=== PATIENT | female | born 1970 | race Caucasian/White ===

== ENCOUNTER 2017-10-22 08:08 | Emergency (ER) ==
[2017-10-22 08:13] VITALS: BP 133/85; TEMP 98; BMI 23.8
[2017-10-22] MEDS ORDERED: XOPENEX 1.25 MG NEB STA (08:19)
[2017-10-22] MEDS ORDERED: SOLU-MEDROL 125 MG IVP STA (08:19)
[2017-10-22] MEDS ORDERED: DUONEB NEB STA (08:19)
--- NOTE | 2017-10-22 09:12 | ED.PDOC ---
General ED Provider: Dr. JENA DYER-ER Chief Complaint: Respiratory Complaint Stated Complaint: my nose was running and then i started coughing and wheezing Time Seen by Physician: 08:10 Mode of Arrival: Walk-In Information Source: Patient Exam Limitations: No limitations Nursing and Triage Documentation Reviewed and Agree: Yes Reviewed sepsis parameters & appropriate labs ordered?: Yes System Inflammatory Response Syndrome: Not Applicable Sepsis Protocol: For patient's 13 years and over: Temp is 96.8 and below OR 101 and greater Pulse >90 BPM Resp >20/minute Acutely Altered Mental Status Are patient's symptoms suggestive of a new infection, such as: -Pneumonia -Skin, Soft Tissue -Endocarditis -UTI -Bone, Joint Infection -Implantable Device -Acute Abdominal Infection -Wound Infection -Meningitis -Blood Stream Catheter Infection -Unknown Respiratory Complaint Exam - Respiratory Complaint/Exam Onset/Duration: 3 days Symptoms Are: Still present Timing: Intermittent Initial Severity: Mild Current Severity: Mild Location: Nose, Chest Character: Reports: Non-productive cough, Bronchospastic cough Aggravating: Reports: URI Alleviating: Reports: Bronchodilators Associated Signs and Symptoms: Reports: Dyspnea, Wheezing, URI, Nasal congestion. Denies: Rapid breathing, Fever, Chills, Chest pain, Pleuritic chest pain, Hemoptysis, Dizziness, Calf pain, Calf swelling, Edema History of Healthcare-Acquired Pneumonia: No Pulmonary Embolism Risk Factors: Smoking Cardiac Risk Factors: Reports: Smoking Pseudomonas Risk Factors: Reports: Chronic Lung Disease Status Asthmaticus Risk Factors: Reports: None, Smoke exposure Home Oxygen Use: No Recent Stress Test: No Recent Echo/LV Function: No Current Antibiotic Use: No Current Asthma Medication Use: Yes Respiratory Distress: Mild Inadequate Respiratory Effort: No Dysphagia Present: No Stridor Present: No JVD Present: No Accessory Muscle Use: No Retractions: Not Present Diminished Breath Sounds: No Prolonged Respiration: Expiratory phase Sinus Tenderness: None Grunting Respirations: No Kussmaul Respirations: No Differential Diagnoses: Asthma, Pneumonia, Bronchitis, URI Non-Traumatic Chest Pain Syncope: EKG Performed Review of Systems - Review Of Systems Constitutional: Reports: No symptoms Eyes: Reports: No symptoms Ears, Nose, Mouth, Throat: Reports: No symptoms Respiratory: Reports: Cough, Wheezing Cardiac: Reports: No symptoms GI: Reports: No symptoms : Reports: No symptoms Musculoskeletal: Reports: No symptoms Skin: Reports: No symptoms Neurological: Reports: No symptoms Endocrine: Reports: No symptoms Hematologic/Lymphatic: Reports: No symptoms All Other Systems: Reviewed and Negative Past Medical History - Past Medical History Previously Healthy: No Endocrine: Reports: Unknown Cardiovascular: Reports: Unknown Respiratory: Reports: COPD, Asthma Hematological: Reports: Unknown Gastrointestinal: Reports: Unknown Genitourinary: Reports: Unknown Neuro/Psych: Reports: Unknown Musculoskeletal: Reports: Unknown Cancer: Reports: Unknown Last Menstrual Period: 1 YEAR AGO - Surgical History General Surgical History: Reports: Unknown - Family History Family History: Reports: Unknown - Social History Smoking Status: Current every day smoker Hx Substance Use: No Alcohol Screening: None Physical Exam - Physical Exam Appearance: Well-appearing, No pain distress, Well-nourished Eyes: ZACK, EOMI, Conjunctiva clear ENT: Rhinorrhea Neck: Supple Respiratory: Airway patent, Wheezes Cardiovascular: RRR GI/: Soft Musculoskeletal: Normal strength, ROM intact, No edema, No calf tenderness Skin: Warm Neurological: Sensation intact Psychiatric: Affect appropriate, Mood appropriate Interpretation - Radiology Interpretation Radiology Interpretation By: ED Physician Radiology Results: Negative Exam Interpreted: Portable CXR - EKG Interpretation Time of EKG #1: 09:13 Rate: Normal Rhythm: Sinus Ectopy: None Brohman: NL ST Segment: Other Interpretation: nsr with acute changes Re-Evaluation - Re-Evaluation Time of Re-Evaluation: 09:24 Status: Improved (no wheezing--no resp distress--no retractions--much improved) Vital Signs Stable: Yes Pain Level: 0 Appearance: NAD Lungs: Clear Skin: Warm and Dry Neuro: Alert and Oriented X3 CV: RRR Critical Care Note - Critical Care Note Total Time (mins): 0 Course - Course Hematology/Chemistry: 10/22/17 08:37 10/22/17 08:37 Orders, Labs, Meds: Lab Review 10/22/17 10/22/17 10/22/17 08:17 08:37 08:37 WBC 11.41 H RBC 5.29 Hgb 16.7 H Hct 49.3 H MCV 93.2 MCH 31.6 H MCHC 33.9 RDW Coeff of Jj 13.9 Plt Count 253 Immature Gran % (Auto) 0.3 Neut % (Auto) 75.7 Lymph % (Auto) 12.3 Gordon % (Auto) 9.8 Eos % (Auto) 1.3 Baso % (Auto) 0.6 Immature Gran # (Auto) 0.0 Neut # (Auto) 8.6 H Lymph # (Auto) 1.4 Gordon # (Auto) 1.1 Eos # (Auto) 0.2 Baso # (Auto) 0.1 D-Dimer (Manual) Puncture Site R radial O2 Saturation 94.0 L ABG pH 7.425 ABG pCO2 32.6 L ABG pO2 70.0 L ABG HCO3 21.4 L ABG Total CO2 22 ABG Base Excess -3 L Huy Test + FiO2 % 21.0 Sodium 142 Potassium 4.0 Chloride 109 H Carbon Dioxide 22 Anion Gap 15.0 BUN 5 L Creatinine 0.75 Estimated GFR (MDRD) 82.00 BUN/Creatinine Ratio 6.66 Glucose 95 Lactic Acid Calcium 9.9 Total Bilirubin 0.5 AST 18 ALT 26 Alkaline Phosphatase 86 Total Creatine Kinase 29 Troponin I < 0.0100 B-Natriuretic Peptide Total Protein 6.7 Albumin 3.8 Globulin 2.9 Albumin/Globulin Ratio 1.31 Procalcitonin 10/22/17 10/22/17 10/22/17 08:37 08:37 08:37 WBC RBC Hgb Hct MCV MCH MCHC RDW Coeff of Jj Plt Count Immature Gran % (Auto) Neut % (Auto) Lymph % (Auto) Gordon % (Auto) Eos % (Auto) Baso % (Auto) Immature Gran # (Auto) Neut # (Auto) Lymph # (Auto) Gordon # (Auto) Eos # (Auto) Baso # (Auto) D-Dimer (Manual) 213.01 Puncture Site O2 Saturation ABG pH ABG pCO2 ABG pO2 ABG HCO3 ABG Total CO2 ABG Base Excess Huy Test FiO2 % Sodium Potassium Chloride Carbon Dioxide Anion Gap BUN Creatinine Estimated GFR (MDRD) BUN/Creatinine Ratio Glucose Lactic Acid 10.8 Calcium Total Bilirubin AST ALT Alkaline Phosphatase Total Creatine Kinase Troponin I B-Natriuretic Peptide < 10 Total Protein Albumin Globulin Albumin/Globulin Ratio Procalcitonin 10/22/17 08:37 WBC RBC Hgb Hct MCV MCH MCHC RDW Coeff of Jj Plt Count Immature Gran % (Auto) Neut % (Auto) Lymph % (Auto) Gordon % (Auto) Eos % (Auto) Baso % (Auto) Immature Gran # (Auto) Neut # (Auto) Lymph # (Auto) Gordon # (Auto) Eos # (Auto) Baso # (Auto) D-Dimer (Manual) Puncture Site O2 Saturation ABG pH ABG pCO2 ABG pO2 ABG HCO3 ABG Total CO2 ABG Base Excess Huy Test FiO2 % Sodium Potassium Chloride Carbon Dioxide Anion Gap BUN Creatinine Estimated GFR (MDRD) BUN/Creatinine Ratio Glucose Lactic Acid Calcium Total Bilirubin AST ALT Alkaline Phosphatase Total Creatine Kinase Troponin I B-Natriuretic Peptide Total Protein Albumin Globulin Albumin/Globulin Ratio Procalcitonin < 0.05 Orders Category Date Time Status ABG DRAW REQUEST Stat CARDIO 10/22/17 08:17 Completed EKG-(ED ONLY) Stat CARDIO 10/22/17 08:17 Completed NEBULIZER TREATMENT Stat CARDIO 10/22/17 08:19 Completed IV [ED IV/MEDIPORT/POWERPORT] .ONCE EMERGENCY 10/22/17 08:18 Active ABG Stat LAB 10/22/17 08:17 Completed B-TYPE NATRIURETIC PEPTIDE Stat LAB 10/22/17 08:37 Completed BLOOD CULTURE (ED ONLY) Stat LAB 10/22/17 08:37 Received CBC W/ AUTO DIFF Stat LAB 10/22/17 08:37 Completed COMPREHENSIVE METABOLIC PANEL Stat LAB 10/22/17 08:37 Completed CREATINE KINASE Stat LAB 10/22/17 08:37 Completed D-DIMER Stat LAB 10/22/17 08:37 Completed LACTIC ACID Stat LAB 10/22/17 08:37 Completed PROCALCITONIN Stat LAB 10/22/17 08:37 Completed TROPONIN I Stat LAB 10/22/17 08:37 Completed 0.9 % Sodium Chloride [Saline Flush] MEDS 10/22/17 08:18 Active 1 syr IVF PRN PRN Ipratropium/Albuterol Neb [Duoneb] MEDS 10/22/17 08:19 Discontinued 1 vial NEB ONCE STA Levalbuterol HCl [Xopenex 1.25 mg] MEDS 10/22/17 08:19 Discontinued 1 vial NEB ONCE STA Methylprednisolone Sod Succ/Pf [Solu-Medrol 125 mg] MEDS 10/22/17 08:19 Discontinued 125 mg IVP ONCE STA CXR [CHEST, 1V AP ONLY] Stat RADS 10/22/17 08:18 Ordered Medications Generic Name Dose Route Start Last Admin Trade Name Freq PRN Reason Stop Dose Admin Sodium Chloride 1 syr 10/22/17 08:18 10/22/17 08:27 Saline Flush IVF 1 syr PRN PRN Administration To flush IV Discontinued Medications Generic Name Dose Route Start Last Admin Trade Name Freq PRN Reason Stop Dose Admin Albuterol/Ipratropium 1 vial 10/22/17 08:19 10/22/17 08:30 Duoneb NEB 10/22/17 08:20 1 vial ONCE STA Administration Levalbuterol HCl 1 vial 10/22/17 08:19 10/22/17 08:46 Xopenex 1.25 Mg NEB 10/22/17 08:20 1 vial ONCE STA Administration Methylprednisolone Sodium Succinate 125 mg 10/22/17 08:19 10/22/17 08:26 Solu-Medrol 125 Mg IVP 10/22/17 08:20 125 mg ONCE STA Administration Vital Signs: Temp Pulse Resp BP Pulse Ox 10/22/17 08:09 98.0 F 110 H 24 133/85 94 L Departure - Departure Time of Disposition: 09:25 Disposition: HOME SELF-CARE Discharge Problem: Abnormal EKG, Tobacco use Asthma Qualifiers: Asthma severity: moderate Asthma persistence: unspecified Asthma complication type: with acute exacerbation Qualified Code(s): J45.901 - Unspecified asthma with (acute) exacerbation Discharge Problem: (Ruled Out): No ST-T wave changes on electrocardiogram Instructions: Asthma (ED) Condition: Good Pt referred to PMD for follow-up: Yes IPMP verified?: No Additional Instructions: refill albuterol inhaler 2 puffs q 4hrs--prednisone 30mg x 2 days then 20mg x 2 days then 10mg x 2 days then 5mg x 2 days---stop smoking---you musst see a provider and get referral to cardiology for abnormal ekg-- Allergies/Adverse Reactions: Allergies Penicillins Adverse Reaction (Verified 10/22/17 08:14) Home Medications: Ambulatory Orders Albuterol Sulfate [Proair Hfa] 2 puff IH PRN PRN 10/22/17 Disposition Discussed With: Patient
--- NOTE | 2017-10-22 09:33 | DI ---
Exam: Single view of the chest. Comparison: None available. Reason for exam: Dyspnea, cough, wheeze. FINDINGS: There is scoliotic change seen throughout the thoracic spine. No pneumothorax, pleural ef fusion, or focal consolidation. The cardiac silhouette is not enlarged. The imaged osseous structur es appear grossly unremarkable without acute fracture. Impression: No acute cardiopulmonary process.
== END 2017-10-22 09:40 | disposition home or self-care (01) ==
LOC: ED 08:08
DX: J45.901 Unspecified asthma with (acute) exacerbation (principal); R94.31 Abnormal electrocardiogram [ECG] [EKG]; R06.2 Wheezing; F17.210 Nicotine dependence, cigarettes, uncomplicated
CPT/HCPCS: 36415; 80053; 82550; 82803; 83605; 83880; 84145; 84484; 85025; 85379; 87040; 93005; 93010; 94640; 96374; 99283

== ENCOUNTER 2017-12-27 06:33 | Outpatient (CLI) ==
--- NOTE | 2017-12-27 09:10 | ECHO2D ---
Date of Exam: 12/27/17 Ordering Physician: DR. RONDA FULLER Room #: OP Reason for Echo: ABNORMAL EKG M-Mode Normal Adult Results LV Dimensions Normal Adult Results AoV Opening excursions >1.6 >1.6 LVEDD-base- 3.5-5.8 4.2 Ao root dimensions 2.0-3.7 3.1 LVESD-base- 3.1-4.6 L. Atrium dimensions 1.9-3.8 3.5 Post. Wall thickness 0.8-1.1 1.0 IV septum (thickness) 0.7-1.2 1.1 Post. Wall excursion 0.72-1.3 NORMAL Septal motion 0.4 Systolic motion R. Ventricular cavity 1.5-2.0 NORMAL LVEF 60% 50% Paradoxical septal wall motion NORMAL 2-D : HYPOKINETIC SEPTUM--NORMAL VALVES--NO EFFUSION, NO THROMBUS, NORMAL LEFT VENTRICLE AND LEFT ATRIAL SIZE M-MODE: MV: MITRAL VALVE PROLAPSE NOTED, LATE SYSTOLIC AV: NORMAL TV: NORMAL PV: CHAMBER SIZE: NORMAL WALL MOTION: HYPOKINETIC SEPTUM PERICARDIUM: NORMAL INTERPRETATION: 1. HYPOKINETIC SEPTUM (LIKELY FROM INCOMPLETE RIGHT BUNDLE BRANCH BLOCK) 2. LEFT VENTRICULAR EJECTION FRACTION 50% 3. NORMAL VALVES WITH 2 "D" ECHO 4. MITRAL VALVE PROLAPSE ONLY BY "M" MODE, LATE SYSTOLIC MTDD
== END 2017-12-27 06:34 | disposition home or self-care (01) ==
LOC: CAR 06:33
PROVIDERS: ATTEND Emergency Medicine
DX: R94.31 Abnormal electrocardiogram [ECG] [EKG] (principal)

== ENCOUNTER 2017-12-28 06:28 | Outpatient (CLI) ==
[2017-12-28] MEDS ORDERED: DOBUTAMINE 250 ML IV ONE (07:33)
[2017-12-28] MEDS ORDERED: ATROPINE SULFATE PFS ONE (07:33)
--- NOTE | 2017-12-28 09:33 | NM ---
Cardiac Stress Test HISTORY: Abnormal EKG. COMPARISON: None of this type. TECHNIQUE: Resting: The patient was injected with he 11.2 millicuries of 99m technetium Sestamibi (Cardiolite) intravenously after which a "resting" SPECT study of the heart was performed. Stress: The patient was stressed pharmacologically with dobutamine and at the appropriate time injec jose m with 30.0 millicuries of 99m technetium Sestamibi (Cardiolite) after which a "stress" SPECT study of the heart was performed. Gated images of the heart were also obtained to assess wall motion and c alculate ejection fraction. For details of the stress protocol employed, reference is made to the se cme report of the performing physician. FINDINGS: The stress perfusion images demonstrate decreased activity in the septum and contiguous po rtions of the anterior wall and inferior wall extending to the left ventricular apex. This improves o n the resting images suggesting ischemia. The resting perfusion images demonstrate no evidence of si gnificant redistribution/ischemia elsewhere. The left ventricular ejection fraction (LVEF) is 62%. IMPRESSION: 1. Left ventricular myocardial perfusion demonstrates evidence of ischemia in the septum and contigu ous portions of the anterior wall and inferior wall. 2. The left ventricular ejection fraction (LVEF) is 62%.
--- NOTE | 2017-12-31 09:51 | DOBSTECHO ---
Date of Test: 12/28/17 Ordering Physician: DR. RONDA FULLER Reason for Examination: ABNORMAL EKG, FAMILY HISTORY OF [place] Current Medications: LISINOPRIL, MOBIC, ALBUTEROL Height: 62" Weight: 130 LBS Target Heart Rate: 145/171 S-T Segment Stage Time HR BPM BP MMHG Rhythm +/- Elevation Depression Comments/ Symptoms Control Sitting 83 118/72 Dobutamine 250mg/D5W 5cmg/KG/mn 10cmg/KG/mn 3" 115 15cmg/KG/mn 2" 136 122/80 20cmg/KG/mn :47 143 138/62 25cmg/KG/mn 30cmg/KG/mn 35cmg/KG/mn 40cmg/KG/mn Time: 3" HR B/P Time: 6" HR B/P Time: 8" HR B/P Recovery 117 122/68 Recovery 92 116/ 62 Recovery 85 Total Time: 5:47 Maximum Heart Rate Reached: 143 BPM 100% OXYGEN SATURATION WITH DOBUTAMINE INFUSION Interpretation: 1. NO EVIDENCE OF ISCHEMIA BY ST-T WAVE 2. NO CHEST PAIN OR DISCOMFORT 3. HYPOKINETIC SEPTUM A REST WITH IMPROVED LEFT VENTRICULAR CONTRACTILITY OF LEFT VENTRICLE WITH DOBUTAMINE INFUSION SESTAMIBI TO FOLLOW MTDD
--- NOTE | 2017-12-31 09:55 | ECHOSTRESS ---
Date of Exam: 12/28/17 Ordering Physician: DR. RONDA FULLER Reason for Echo: ABNORMAL EKG, DOBUTAMINE STRESS --NO ISCHEMIA M-Mode Normal Adult Results LV Dimensions Normal Adult Results AoV Opening excursions >1.6 LVEDD-base- 3.5-5.8 Ao root dimensions 2.0-3.7 LVESD-base- 3.1-4.6 L. Atrium dimensions 1.9-3.8 Post. Wall thickness 0.8-1.1 IV septum (thickness) 0.7-1.2 Post. Wall excursion 0.72-1.3 Septal motion Systolic motion R. Ventricular cavity 1.5-2.0 LVEF 60% Paradoxical septal wall motion 2-D: HYPOKINETIC SEPTUM AT REST AND IMPROVED CONTRACTILITY OF LEFT VENTRICLE WITH DOBUTAMINE INFUSION M-MODE: MV: AV: TV: PV: CHAMBER SIZE: WALL MOTION: HYPOKINETIC SEPTUM AT REST AND IMPROVED CONTRACTILITY OF LEFT VENTRICLE WITH DOBUTAMINE INFUSION PERICARDIUM: INTERPRETATION: 1. HYPOKINETIC SEPTUM AT REST AND IMPROVED CONTRACTILITY OF LEFT VENTRICLE WITH DOBUTAMINE INFUSION SESTAMIBI TO FOLLOW MTDD
== END 2017-12-28 06:29 | disposition home or self-care (01) ==
LOC: CAR 06:28
PROVIDERS: ATTEND Emergency Medicine
DX: R94.31 Abnormal electrocardiogram [ECG] [EKG] (principal); I10 Essential (primary) hypertension

== ENCOUNTER 2018-01-11 12:02 | Outpatient (CLI) | END 2018-01-11 12:03 | disposition home or self-care (01) | LOC: RHC-LAB 12:02 | PROVIDERS: ATTEND Emergency Medicine | DX: I10 Essential (primary) hypertension (principal) | CPT/HCPCS: 36415; 80061; 84443 ==

== ENCOUNTER 2018-01-22 10:28 | Outpatient (CLI) ==
--- NOTE | 2018-01-23 09:23 | MAMMO ---
EXAM: Bilateral digital screening mammogram (2-D and 3-D) History: Baseline screening Findings: MLO and CC views of bilateral breasts demonstrate scattered fibroglandular breast parenchy ma. CAD was reviewed by the radiologist. Tomosynthesis was performed. There are no suspicious micr ocalcifications. 0.9 cm well circumscribed mass at 6 o'clock within the right breast anterior depth. 3.2 cm fairly well circumscribed mass within the upper-outer quadrant of the left breast. Impression: Indeterminate bilateral breast masses. Recommend further evaluation with ultrasound. BIRAD 0
== END 2018-01-22 10:29 | disposition home or self-care (01) ==
LOC: RAD 10:28
PROVIDERS: ATTEND Emergency Medicine
DX: Z12.31 Encounter for screening mammogram for malignant neoplasm of breast (principal)
CPT/HCPCS: 77067

== ENCOUNTER 2018-02-16 07:58 | Emergency (ER) ==
[2018-02-16 08:05] VITALS: BP 135/86; TEMP 96.7; BMI 24.5
[2018-02-16] MEDS ORDERED: DUONEB NEB STA (08:20)
[2018-02-16] MEDS ORDERED: SODIUM CHLORIDE 1,000 ML IV STA (08:20)
--- NOTE | 2018-02-16 08:26 | ED.PDOC ---
General ED Provider: Dr. MONY RODRIGUEZ Chief Complaint: Chest Pain Stated Complaint: Patient is a 47 year old female who has a history of COPD comes to the ER with complaints of chest pain since yesterday. Describes it as Sharp and heavy rates it at 8/10 worse with breathing. Denies any history of CAD. Has had a stress test recently last month. Was told she had a Leaky heart. Rates the pain at 6/10 Time Seen by Physician: 08:23 Mode of Arrival: Walk-In Information Source: Patient Exam Limitations: No limitations Primary Care Provider: PAT ANDERS Nursing and Triage Documentation Reviewed and Agree: Yes Does patient meet sepsis criteria?: Yes If yes, has appropriate treatment been initiated?: Yes System Inflammatory Response Syndrome: Pulse >90 BPM, Resp >20/Minute Sepsis Protocol: For patient's 13 years and over: Temp is 96.8 and below OR 101 and greater Pulse >90 BPM Resp >20/minute Acutely Altered Mental Status Are patient's symptoms suggestive of a new infection, such as: -Pneumonia -Skin, Soft Tissue -Endocarditis -UTI -Bone, Joint Infection -Implantable Device -Acute Abdominal Infection -Wound Infection -Meningitis -Blood Stream Catheter Infection -Unknown Cardiovascular Complaint Exam - Chest Pain Complaint/Exam Onset: Sudden Duration: 1 day Symptoms Are: Still present Timing: Constant Length of Chest Pain Episodes: 1 day Initial Severity: Moderate Current Severity: Severe Location: Reports: Midsternal Pain Radiates: Reports: None Character: Reports: Heaviness, Sharp Aggravating: Reports: Deep breaths Alleviating: Reports: None Associated Signs and Symptoms: Reports: Short of air. Denies: Diaphoresis, Nausea, Vomiting, Fever, Palpitations, Cough, Hemoptysis, Back pain, Abdominal pain, Dizziness, Calf pain, Calf swelling Related Surgical History: Reports: None AMI/ACS Risk Factors: Reports: Family history, Hypertension, Smoking Pulmonary Embolism Risk Factors: Reports: Smoking Prior Care for this Complaint: No Recent Stress Test: Yes (one month ago ) Recent Echo/LV Function: Yes (one month ago EF 65% ) JVD Present: No Subcutaneous Emphysema Present: No Diminshed Breath Sounds: No Reproducible Chest Wall Pain: No Bilateral Pulses Present: No Unequal Pulses Noted: No If Risk Factors for AMI/ACS Consider: EKG, Cardiac Enzymes, Aspirin Documents Reviewed: Medical records, Labs, Imaging, EKG Differential Diagnoses: Acute VT, ACS, Pulmonary Edema, GI Diseasae Review of Systems - Review Of Systems Constitutional: Reports: No symptoms Eyes: Reports: No symptoms Ears, Nose, Mouth, Throat: Reports: No symptoms Respiratory: Reports: Short of air Cardiac: Reports: Chest pain GI: Reports: No symptoms : Reports: No symptoms Musculoskeletal: Reports: No symptoms Skin: Reports: No symptoms Neurological: Reports: No symptoms Endocrine: Reports: No symptoms Hematologic/Lymphatic: Reports: No symptoms All Other Systems: Reviewed and Negative Past Medical History - Past Medical History Previously Healthy: No Endocrine: Reports: None Cardiovascular: Reports: Hypertension Respiratory: Reports: COPD, Asthma Hematological: Reports: None Gastrointestinal: Reports: None Genitourinary: Reports: None Neuro/Psych: Reports: Anxiety, Depression Musculoskeletal: Reports: Back Pain Cancer: Reports: None Last Menstrual Period: na - Surgical History General Surgical History: Reports: None - Family History Family History: Reports: Heart (sister ) - Social History Smoking Status: Current every day smoker (1/2 ppd ) Hx Substance Use: No Alcohol Screening: None - Immunizations Tetanus Shot up to Date: No Physical Exam - Physical Exam Appearance: Ill-appearing Ill-appearing: Mild Pain Distress: Moderate Neck: Supple Respiratory: Breath sounds diminished (on the left ), Rhonchi (Throught ) Cardiovascular: RRR, Pulses normal, No rub, No murmur GI/: Soft, Nontender, No masses, Bowel sounds normal, No Organomegaly Musculoskeletal: Normal strength, ROM intact, No edema, No calf tenderness Skin: Warm, Dry, Normal color Neurological: Sensation intact, Motor intact, Reflexes intact, Cranial nerves intact, Alert, Oriented Psychiatric: Anxious Interpretation - Radiology Interpretation Radiology Interpretation By: Radiologist - EKG Interpretation Time of EKG #1: 08:12 Rate: Tachy (101) Rhythm: Sinus [place]: NL ST Segment: Normal Interpretation: age undetermined Septal infarct Physician Notification - Case Discussed Physician Notified: Dr. URBAN Time of Notification: 09:30 (will accept if D Dimer negative. ) Physician Notified: Dr URBAN Time of Notification: 10:30 (D-Dimer only 556, will not get CT PE but treated with Lovenox. ) Critical Care Note - Critical Care Note Total Time (mins): 40 Comments: Review EKG, ABG, evaluate response to nitroglycerine reviewed recent stress test Stress echo 12/28/2018 hypokinetic septum at rest with improved left ventricular contractility. Cardiolyte stres test 12/28/2017 Left ventricular Myocardial perfusion demonstrates evidence of ischemia in the septal contiguous portions of the anterior and inferior wall Course - Course Hematology/Chemistry: 02/16/18 08:38 02/16/18 08:38 Orders, Labs, Meds: Lab Review 02/16/18 02/16/18 02/16/18 08:20 08:38 08:38 WBC 6.77 RBC 4.74 Hgb 14.3 Hct 43.7 MCV 92.2 MCH 30.2 MCHC 32.7 RDW Coeff of Jj 14.8 Plt Count 278 Immature Gran % (Auto) 0.1 Neut % (Auto) 54.2 Lymph % (Auto) 27.9 [place] % (Auto) 10.3 H Eos % (Auto) 6.6 Baso % (Auto) 0.9 Immature Gran # (Auto) 0.0 Neut # (Auto) 3.7 Lymph # (Auto) 1.9 [place] # (Auto) 0.7 Eos # (Auto) 0.5 Baso # (Auto) 0.1 D-Dimer (Manual) Puncture Site Rr O2 Saturation 96.0 ABG pH 7.408 ABG pCO2 38.0 ABG pO2 78.0 L ABG HCO3 24.0 ABG Total CO2 25 ABG Base Excess -1 Huy Test + FiO2 % 21.0 Sodium 141.1 Potassium 4.01 Chloride 107.8 H Carbon Dioxide 25.4 Anion Gap 11.91 BUN 12.1 Creatinine 0.74 Estimated GFR (MDRD) 83.00 BUN/Creatinine Ratio 16.35 Glucose 84.0 Lactic Acid Calcium 9.91 Total Bilirubin 0.28 AST 29.9 ALT 50.4 H Alkaline Phosphatase 110.2 Total Creatine Kinase 28.9 L Troponin I < 0.012 Total Protein 7.08 Albumin 4.07 Globulin 3.01 Albumin/Globulin Ratio 1.35 Procalcitonin 02/16/18 02/16/18 02/16/18 08:38 08:38 10:00 WBC RBC Hgb Hct MCV MCH MCHC RDW Coeff of Jj Plt Count Immature Gran % (Auto) Neut % (Auto) Lymph % (Auto) [place] % (Auto) Eos % (Auto) Baso % (Auto) Immature Gran # (Auto) Neut # (Auto) Lymph # (Auto) [place] # (Auto) Eos # (Auto) Baso # (Auto) D-Dimer (Manual) 552.65 Puncture Site O2 Saturation ABG pH ABG pCO2 ABG pO2 ABG HCO3 ABG Total CO2 ABG Base Excess Huy Test FiO2 % Sodium Potassium Chloride Carbon Dioxide Anion Gap BUN Creatinine Estimated GFR (MDRD) BUN/Creatinine Ratio Glucose Lactic Acid 1.11 Calcium Total Bilirubin AST ALT Alkaline Phosphatase Total Creatine Kinase Troponin I Total Protein Albumin Globulin Albumin/Globulin Ratio Procalcitonin < 0.05 Orders Category Date Time Status ABG DRAW REQUEST Stat CARDIO 02/16/18 08:20 Completed EKG-(ED ONLY) Stat CARDIO 02/16/18 08:20 Completed NEBULIZER TREATMENT Stat CARDIO 02/16/18 08:22 Completed ED IV/MEDIPORT/POWERPORT .ONCE EMERGENCY 02/16/18 08:20 Active ABG Stat LAB 02/16/18 08:20 Completed BLOOD CULTURE (ED ONLY) Stat LAB 02/16/18 08:38 Received CBC W/ AUTO DIFF Stat LAB 02/16/18 08:38 Completed COMPREHENSIVE METABOLIC PANEL Stat LAB 02/16/18 08:38 Completed CREATINE KINASE Stat LAB 02/16/18 08:38 Completed D-DIMER Stat LAB 02/16/18 10:00 Completed LACTIC ACID Stat LAB 02/16/18 08:38 Completed PROCALCITONIN Stat LAB 02/16/18 08:38 Completed TROPONIN I Stat LAB 02/16/18 08:38 Completed 0.9 % Sodium Chloride [Saline Flush] MEDS 02/16/18 08:20 Discontinued 1 syr IVF PRN PRN Aspirin [Aspirin Chewable] MEDS 02/16/18 09:15 Discontinued 324 mg PO ONCE STA Enoxaparin Sodium [Lovenox] MEDS 02/16/18 09:40 Discontinued 60 mg SUBCUT ONCE STA Ipratropium/Albuterol Neb [Duoneb] MEDS 02/16/18 08:20 Discontinued 1 vial NEB ONCE STA Nitroglycerin [Nitro-Bid] MEDS 02/16/18 09:31 Discontinued 1 inch TD .STK-MED ONE Nitroglycerin [Nitro-Bid] MEDS 02/16/18 09:41 Discontinued 1 inch TD ONCE STA Nitroglycerin [Nitrostat] MEDS 02/16/18 08:31 Discontinued 0.4 mg SL ONCE STA Sodium Chloride 0.9% [Sodium Chloride] 1,000 ml MEDS 02/16/18 08:20 Discontinued IV 125 mls/hr CHEST, 1V AP ONLY Stat RADS 02/16/18 08:20 Completed Medications Discontinued Medications Generic Name Dose Route Start Last Admin Trade Name Freq PRN Reason Stop Dose Admin Albuterol/Ipratropium 1 vial 02/16/18 08:20 02/16/18 08:47 Duoneb NEB 02/16/18 08:21 1 vial ONCE STA Administration Aspirin 324 mg 02/16/18 09:15 02/16/18 09:27 Aspirin Chewable PO 02/16/18 09:16 324 mg ONCE STA Administration Enoxaparin Sodium 60 mg 02/16/18 09:40 02/16/18 10:02 Lovenox SUBCUT 02/16/18 09:41 60 mg ONCE STA Administration Sodium Chloride 1,000 mls @ 125 mls/hr 02/16/18 08:20 02/16/18 08:49 Sodium Chloride IV 02/16/18 16:19 125 mls/hr .Q8H STA Administration Nitroglycerin 0.4 mg 02/16/18 08:31 02/16/18 08:49 Nitrostat SL 02/16/18 08:32 0.4 mg ONCE STA Administration Nitroglycerin 1 inch 02/16/18 09:41 02/16/18 10:06 Nitro-Bid TD 02/16/18 09:42 Not Given ONCE STA Sodium Chloride 1 syr 02/16/18 08:20 Saline Flush IVF PRN PRN To flush IV Vital Signs: Temp Pulse Resp BP Pulse Ox 02/16/18 08:00 96.7 F L 102 H 22 135/86 97 AMI Core - Clinical Trial Participant Clinical Trial Participant: No - Palliative Care Palliative Care: none - Fibrinolytic Reason for not ordering Fibrinolytic: not indicated - EKG Initial Interpretation EKG Initial Interpretation Date: 02/16/18 EKG Initial Interpretation Time: 08:13 (no ischemia ) TORSTEN Risk Score Age >/= 65: No >/= 3 CAD Risk Factors: Yes Known CAD (Stenosis >/= 50%): No ASA Use in Past 7 Days: No Severe Angina (>/= 2 episodes in 24 hours): Yes EKG ST Changes >/= 0.5mm: No Postive Cardiac Marker: No TORSTEN Total Score: 2 TORSTEN Risk Score: Risk Score Odds of by 30D 0 0.1 (0.1-0.2) 1 0.3 (0.2-0.3) 2 0.4 (0.3-0.5) 3 0.7 (0.6-0.9) 4 1.2 (1.0-1.5) 5 2.2 (1.9-2.6) 6 3.0 (2.5-3.6) 7 4.8 (3.8-6.1) Departure - Departure Time of Disposition: 11:35 Disposition: TSF SHORT-TRM HOSP Discharge Problem: Chest pain Condition: Fair Pt referred to PMD for follow-up: Yes IPMP verified?: No Allergies/Adverse Reactions: Allergies Penicillins Adverse Reaction (Verified 10/22/17 08:14) Home Medications: Ambulatory Orders Albuterol Sulfate [Proair Hfa] 2 puff IH PRN PRN 10/22/17 Pt. Stabilized Within Hospital's Capabilities/Transferred To: [facility] Transfer Form Completed: Yes Disposition Discussed With: Patient, Family
[2018-02-16] MEDS ORDERED: ASPIRIN CHEWABLE PO STA ×2 (08:30→09:15)
[2018-02-16] MEDS ORDERED: NITROSTAT SL STA (08:31)
--- NOTE | 2018-02-16 09:01 | DI ---
Exam: Single view of the chest. Comparison: 10/22/2017. Reason for exam: Chest pain. FINDINGS: No pneumothorax, pleural effusion, or focal consolidation. Similar appearing scoliotic ch darwin of the thoracic spine. No obvious pneumothorax. Impression: No acute cardiopulmonary process.
[2018-02-16] MEDS ORDERED: NITRO-BID TD ONE (09:31)
[2018-02-16] MEDS ORDERED: LOVENOX SUBCUT STA (09:40)
[2018-02-16] MEDS ORDERED: NITRO-BID TD STA (09:41)
== END 2018-02-16 11:40 | disposition short-term general hospital (02) ==
LOC: ED 07:58
DX: R07.9 Chest pain, unspecified (principal); R06.02 Shortness of breath; J44.9 Chronic obstructive pulmonary disease, unspecified; I10 Essential (primary) hypertension; F17.210 Nicotine dependence, cigarettes, uncomplicated
CPT/HCPCS: 36415; 80053; 82550; 82803; 83605; 84145; 84484; 85025; 85379; 87040; 93005; 93010; 94640; 96360; 96361; 99285

== ENCOUNTER 2018-02-16 11:30 | Outpatient (CLI) ==
[2018-02-16 08:05] VITALS: BMI 24.5
== END 2018-02-16 11:54 | disposition short-term general hospital (02) ==
LOC: AMBL 11:30
PROVIDERS: ATTEND Internal Medicine Geriatric Medicine
DX: R07.9 Chest pain, unspecified (principal)

== ENCOUNTER 2018-08-09 09:24 | Outpatient (CLI) ==
--- NOTE | 2018-08-09 11:41 | DI ---
EXAM: Two views of the spine for scoliosis evaluation. History: Back pain. Findings: No obvious acute fractures are identified. There are chronic compression deformities with in the mid thoracic spine related to the scoliotic curvature. Dextroscoliosis scoliosis with Cody an gle of 65 degrees centered between T2 and T9. Impression: 1. Severe dextroscoliosis
== END 2018-08-09 09:25 | disposition home or self-care (01) ==
LOC: RAD 09:24
PROVIDERS: ATTEND Nurse Practitioner Family
DX: M54.9 Dorsalgia, unspecified (principal); Z72.0 Tobacco use; F41.9 Anxiety disorder, unspecified; I10 Essential (primary) hypertension
CPT/HCPCS: 36415; 80053; 80061; 85025

== ENCOUNTER 2018-09-24 12:39 | Outpatient (CLI) ==
[2018-09-24] MEDS ORDERED: ALBUTEROL 0.083% NEB NEB STA (12:58)
== END 2018-09-24 12:40 | disposition home or self-care (01) ==
LOC: CAR 12:39
PROVIDERS: ATTEND Nurse Practitioner Family
DX: R06.02 Shortness of breath (principal); Z72.0 Tobacco use

== ENCOUNTER 2022-10-17 12:37 | Observation (INO) ==
[2022-10-17] MEDS ORDERED: SOLU-MEDROL 125 MG IVP STA (12:56)
[2022-10-17] MEDS ORDERED: DUONEB NEB STA (12:57)
--- NOTE | 2022-10-17 13:02 | ED.PDOC ---
General ED Provider: Dr. BARRINGTON GRISSOM MD Chief Complaint: Shortness of Air Stated Complaint: sob Time Seen by Provider: 10/17/22 13:08 Information Source: Patient Primary Care Provider: TRISTAN HURT Nursing and Triage Documentation Reviewed and Agree: Yes Does patient meet sepsis criteria?: No System Inflammatory Response Syndrome: Not Applicable Sepsis Protocol: For patient's 13 years and over: Temp is 96.8 and below OR 101 and greater Pulse >90 BPM Resp >20/minute Acutely Altered Mental Status Are patient's symptoms suggestive of a new infection, such as: -Pneumonia -Skin, Soft Tissue -Endocarditis -UTI -Bone, Joint Infection -Implantable Device -Acute Abdominal Infection -Wound Infection -Meningitis -Blood Stream Catheter Infection -Unknown Respiratory Complaint Exam Shortness of Air Complaint/Exam Onset/Duration: 4 days Symptoms Are: Still present Timing: Constant Initial Severity: Moderate Current Severity: Severe Character: Reports Dyspnea at rest Associated Signs and Symptoms: Reports Cough and Wheezing Respiratory Distress: Mild Diminished Breath Sounds: Yes Differential Diagnoses: COPD Exacerbation, Pneumonia, Bronchitis and Bronchiolitis Review of Systems Review Of Systems Constitutional: Reports Malaise All Other Systems: Reviewed and Negative [facility] Medical History Arthritis M19.90 - Unspecified osteoarthritis, unspecified site (ICD-10) Asthma J45.909 - Unspecified asthma, uncomplicated (ICD-10) Chronic back pain M54.9 - Dorsalgia, unspecified (ICD-10) Chronic obstructive pulmonary disease J44.9 - Chronic obstructive pulmonary disease, unspecified (ICD-10) Generalized anxiety disorder (03/12/18) F41.1 - Generalized anxiety disorder (ICD-10) History of seasonal allergies Z88.9 - Allergy status to unspecified drugs, medicaments and biological substances status (ICD-10) Hypertension I10 - Essential (primary) hypertension (ICD-10) Osteoporosis M81.0 - Age-related osteoporosis without current pathological fracture (ICD- 10) Severe scoliosis M41.9 - Scoliosis, unspecified (ICD-10) Suicide attempt T14.91XA - Suicide attempt, initial encounter (ICD-10) Vitamin B12 deficiency E53.8 - Deficiency of other specified B group vitamins (ICD-10) Family History Grandfather/Grandmother COPD (chronic obstructive pulmonary disease) Asthma SISTER Cerebrovascular accident Mother Anxiety Social History (Updated 10/17/22 @ 15:24 by PEGGY SALDIVAR RN) Smoking and tobacco status: Current every day smoker Tobacco type: cigarettes Smoking cigarettes per day: 4 Tobacco: How many years used: 35 Quit status: considering quitting Second hand smoke exposure: Yes Smoking risk assessment performed: No Alcohol intake: current Alcohol intake frequency: holidays/special occasions only Counseling given: No Substance use type: does not use Counseling given: No Diamante/synagogue: Nondenominational Special diamante needs: No Agree to transfusion: Yes Adopted: No Caregiver/support person: Yes Foster care: No Household members: other Other Household Members: sister Housing: apartment Marital status: X LEGALLY Lives independently: Yes Number of children: 3 Number of grandchildren: 0 Highest education level completed: high school graduate Financial difficulty paying for basics: not applicable service: No half-way: No Current occupational status: unemployed Current occupation: applying for disability due to back pain Current occupational exposures/hazards: No Pets and animals: No Leisure activites: other History of recent travel: No Sexually active: No Do you think of yourself as: straight/heterosexual Current gender identity: female Seatbelt use: always Helmet use: No Drives intoxicated or rides with intoxicated test car driver: No Water heater temperature set < 120 degrees: Yes Working smoke detector in home: Yes Fire extinguisher in home: Yes Carbon monoxide detector in home: Yes Firearms in home: No Surgical History History of section Z98.891 - History of uterine scar from previous surgery (ICD-10) neck surgery Status post appendectomy Z90.49 - Acquired absence of other specified parts of digestive tract (ICD-10) Female Reproductive History Menstrual Hx Hysterectomy: No Hx Tubal Ligation: Yes Physical Exam Physical Exam Appearance: Reports Ill-appearing Ill-appearing: Mild Pain Distress: None Eyes: Reports ZACK and EOMI ENT: Reports Ears normal, Nose normal and Oropharynx normal Neck: Supple Respiratory: Reports Breath sounds clear (decreased breath sound bilateral) and Wheezes Cardiovascular: Reports RRR GI/: Reports Soft and Nontender Musculoskeletal: Reports Normal strength and ROM intact Skin: Reports Warm Neurological: Reports Sensation intact and Motor intact Psychiatric: Reports Affect appropriate Interpretation Insulation Board Coater Operator Rate: Tachy Rhythm: Sinus EKG Interpretation Rate: Tachy Rhythm: Sinus Interpretation: normal HI,QRS,bilateral atrial enlargment, no ischemic changes Critical Care Note Critical Care Note Total Critical Care Time (mins): 0 Course Course 10/18/22 04:53 10/18/22 04:53 Orders, Labs, Meds: Lab Review 10/17/22 10/17/22 10/17/22 13:10 13:25 13:29 WBC 10.02 RBC 4.74 Hgb 14.4 Hct 43.3 MCV 91.4 MCH 30.4 MCHC 33.3 RDW Coeff of Jj 13.7 Plt Count 380 Immature Gran % (Auto) 0.5 Neut % (Auto) 71.1 Lymph % (Auto) 15.7 [place] % (Auto) 11.8 H Eos % (Auto) 0.4 Baso % (Auto) 0.5 Neut # (Auto) 7.1 H Lymph # (Auto) 1.6 [place] # (Auto) 1.2 Eos # (Auto) 0.0 Baso # (Auto) 0.1 Immature Gran # (Auto) 0.1 Sodium 137.6 Potassium 4.22 Chloride 102.5 Carbon Dioxide 26.3 Anion Gap 13.02 BUN 19.6 H Creatinine 0.78 Estimated GFR (MDRD) 77.00 BUN/Creatinine Ratio 25.12 Glucose 107.8 H Calcium 9.52 Total Bilirubin 0.55 AST 27.7 ALT 32.3 Alkaline Phosphatase 178.6 H Troponin I < 0.012 Total Protein 8.32 H Albumin 4.82 Globulin 3.50 Albumin/Globulin Ratio 1.37 Influ A Molecular Assay Negative by naat Influ B Molecular Assay Negative by naat SARS CoV-2 RNA Rapid OBDULIO Negative Orders Category Date Time Status PLACE PATIENT OBSERVATION .TO MEDSURG (MONITORED BED ADMISSION 10/17/22 14:04 Active ) EKG-(ED ONLY) Stat CARDIO 10/17/22 12:55 Completed NEBULIZER TREATMENT Routine CARDIO 10/17/22 14:08 Active NEBULIZER TREATMENT Stat CARDIO 10/17/22 12:57 Completed OXYGEN Routine CARDIO 10/17/22 12:58 Completed OXYGEN Routine CARDIO 10/17/22 14:05 Active ACTIVITY .Early Mobilization for VTE Prevention CARE 10/17/22 14:04 Active INTAKE & OUTPUT Q8HR CARE 10/17/22 14:04 Active TELEMETRY MONITORING TELE CARE 10/17/22 14:04 Active VITAL SIGNS Q8HR CARE 10/17/22 14:04 Completed REGULAR DIET DIETARY 10/17/22 Dinner Ordered CBC W/ AUTO DIFF DAILY@0600 LAB 10/18/22 04:53 Completed CBC W/ AUTO DIFF DAILY@0600 LAB 10/19/22 06:00 Ordered CBC W/ AUTO DIFF Stat LAB 10/17/22 13:10 Completed COMPREHENSIVE METABOLIC PANEL DAILY@0600 LAB 10/18/22 04:53 Completed COMPREHENSIVE METABOLIC PANEL DAILY@0600 LAB 10/19/22 06:00 Ordered COMPREHENSIVE METABOLIC PANEL Stat LAB 10/17/22 13:10 Completed COVID [SARS COV-2 RNA RAPID OBDULIO] Stat LAB 10/17/22 13:25 Completed FLU A/B MOLECULAR Stat LAB 10/17/22 13:29 Completed SPUTUM CULTURE Stat LAB 10/17/22 14:05 Uncollected TROPONIN I Stat LAB 10/17/22 13:10 Completed Acetaminophen [Tylenol] Meds 10/17/22 14:05 Active 650 mg PO Q4H PRN Albuterol Sulfate 0.083% Neb [Albuterol 0.083% Neb] Meds 10/17/22 14:05 Active 2.5 mg NEB RTQID PRN Ipratropium/Albuterol Neb [Duoneb] Meds 10/17/22 12:57 Discontinued 3 ml NEB ONCE STA Ipratropium/Albuterol Neb [Duoneb] Meds 10/17/22 18:00 Active 3 ml NEB RTQ6H Levofloxacin/D5w [Levaquin 500 mg/100 ml D5w] Meds 10/17/22 14:04 Discontinued 500 mg in 100 ml IV ONCE Levofloxacin/D5w [Levaquin 750 mg/150 ml D5w] Meds 10/18/22 09:00 Active 750 mg in 150 ml IV DAILY Mag Hydrox/Al Hydrox/Simeth [Mylanta Susp] Meds 10/17/22 14:05 Active 30 ml PO BID PRN Methylprednisolone Sod Succ/Pf [Solu-Medrol 125 mg] Meds 10/17/22 12:56 Discontinued 125 mg IVP ONCE STA Methylprednisolone Sod Succ/Pf [Solu-Medrol 40 mg] Meds 10/17/22 21:00 Active 40 mg IVP Q8HR Ondansetron HCl/Pf [Zofran 4 mg/2 ml] Meds 10/17/22 14:05 Active 4 mg IVP Q8H PRN Sodium Chloride 0.9% [Sodium Chloride] 1,000 ml Meds 10/17/22 14:11 Discontinued IV 125 mls/hr RESUSCITATION STATUS Routine OTHERS 10/17/22 14:04 Completed CHEST, 1V AP ONLY Stat RADS 10/17/22 12:55 Completed Medications Generic Name Dose Route Start Last Admin Trade Name Freq PRN Reason Stop Dose Admin Acetaminophen 650 mg 10/17/22 14:05 Acetaminophen 325 Mg Tablet PO Q4H PRN Fever >101 Hydrocodone Bitart/Acetaminophen 1 tab 10/17/22 15:46 Hydrocodone Bit/Acetaminophen 7.5/325 Mg Tablet PO BID PRN Pain Al Hydroxide/Mg Hydroxide 30 ml 10/17/22 14:05 Mag Hydrox/Al Hydrox/Simeth 30 Ml Cup PO BID PRN Heartburn Albuterol Sulfate 2.5 mg 10/17/22 14:05 Albuterol Sulfate 0.083% Vial.Neb NEB RTQID PRN Shortness of breath Albuterol/Ipratropium 3 ml 10/17/22 18:00 10/18/22 05:10 Ipratropium/Albuterol Vial.Neb NEB 3 ml RTQ6H HERMINIO Administration Alendronate Sodium 70 mg 10/25/22 06:30 Alendronate Sodium 70 Mg Tablet PO WEEKLY FOSAMAX HERMINIO Amitriptyline HCl 25 mg 10/17/22 21:00 10/17/22 20:08 Amitriptyline Hcl 25 Mg Tablet PO 25 mg BEDTIME HERMINIO Administration Budesonide/Formoterol Fumarate 2 puff 10/17/22 21:00 10/17/22 20:08 Budesonide/Formoterol Fumarate 160/4.5 Mcg Inhaler IH 2 puff BID HERMINIO Administration Buspirone HCl 15 mg 10/17/22 21:00 10/17/22 20:09 Buspirone Hcl 10 Mg Tablet PO 15 mg TID HERMINIO Administration Calcium/Vitamin D 1 each 10/17/22 21:00 10/17/22 20:08 Calcium Carbonate/Vitamin D3 500 Mg/5 Mcg(200iu) 1 Each Tablet PO 1 each BID HERMINIO Administration Clonidine 0.1 mg 10/17/22 15:46 Clonidine Hcl 0.1 Mg Tablet PO BID PRN Hypertension Enoxaparin Sodium 30 mg 10/17/22 18:00 10/17/22 17:10 Enoxaparin Sodium 30 Mg/0.3 Ml Syr SUBCUT 30 mg DAILY HERMINIO Administration Ergocalciferol 50,000 unit 10/22/22 09:00 Ergocalciferol (Vitamin D2) 50,000 Unit Capsule PO WEEKLY HERMINIO Fluoxetine HCl 20 mg 10/18/22 09:00 Fluoxetine Hcl 20 Mg Capsule PO DAILY HERMINIO Gabapentin 300 mg 10/17/22 21:00 10/17/22 20:08 Gabapentin 300 Mg Capsule PO 300 mg TID HERMINIO Administration Gabapentin 100 mg 10/17/22 21:00 10/17/22 20:08 Gabapentin 100 Mg Capsule PO 100 mg TID HERMINIO Administration Levofloxacin/Dextrose 750 mg in 150 mls @ 100 mls/hr 10/18/22 09:00 Levaquin 750 Mg/150 Ml D5w IV 10/21/22 08:59 DAILY [facility] Lisinopril 40 mg 10/18/22 09:00 Lisinopril 40 Mg Tablet PO DAILY [facility] Meloxicam 15 mg 10/18/22 08:30 Meloxicam 7.5 Mg Tablet PO DAILYWM [facility] Methylprednisolone Sodium Succinate 40 mg 10/17/22 21:00 10/18/22 05:47 Methylprednisolone Sod Succ/Pf 40 Mg/Ml Vial IVP 40 mg Q8HR HERMINIO Administration Ondansetron HCl 4 mg 10/17/22 14:05 Ondansetron Hcl/Pf 4 Mg/2 Ml Sdv IVP Q8H PRN Nausea / Vomiting Pantoprazole Sodium 40 mg 10/18/22 06:30 10/18/22 05:53 Pantoprazole Sodium 40 Mg Tablet.Dr PO 40 mg QDAC HERMINIO Administration Tiotropium [place] 1 cap 10/18/22 09:00 Tiotropium [place] 18 Mcg Cap.W.Dev IH DAILY [facility] Tizanidine HCl 2 mg 10/17/22 15:46 Tizanidine Hcl 4 Mg Tablet PO TID PRN Spasms Discontinued Medications Generic Name Dose Route Start Last Admin Trade Name Freq PRN Reason Stop Dose Admin Albuterol/Ipratropium 3 ml 10/17/22 12:57 10/17/22 13:13 Ipratropium/Albuterol Vial.Neb NEB 10/17/22 12:58 3 ml ONCE STA Administration Levofloxacin/Dextrose 500 mg in 100 mls @ 100 mls/hr 10/17/22 14:04 10/17/22 14:16 Levaquin 500 Mg/100 Ml D5w IV 10/17/22 15:03 100 mls/hr ONCE ONE Administration Sodium Chloride 1,000 mls @ 125 mls/hr 10/17/22 14:11 10/17/22 15:22 Sodium Chloride IV 10/17/22 22:10 125 mls/hr .Q8H STA Administration Methylprednisolone Sodium Succinate 125 mg 10/17/22 12:56 10/17/22 13:01 Methylprednisolone Sod Succ/Pf 125 Mg/2 Ml Vial IVP 10/17/22 12:57 125 mg ONCE STA Administration Vital Signs: Temp Pulse Resp BP Pulse Ox 10/17/22 12:39 97.2 F L 111 H 28 H 116/86 98 51 yo female with hx of COPD on 2L home O2 coming for SOB for 4 days with productive cough and wheezes. patient was given solumedrol 125 mg iv, duoneb/albuterol neublizer, and IV levaquin 500 mg with improvement. Patient is on 2L NC sats around 95 and i discussed the case with Jose Eduardo WETZEL regarding admitting patient for further Steroids/IV antibiotic and breathing treatment. Patient will be admitted to her services. Discharge Plan Discharge Patient Disposition: ADMITTED INPATIENT Discharge Problem: Acute respiratory failure with hypoxia, COPD exacerbation Did you review [place] REVIEW SPECIALIST for ALL controlled substances?: No ED Provider: BARRINGTON GRISSOM Condition: Poor Physician Progress Note: []
[2022-10-17 13:16] LABS: BASOPHILS # (AUTO) 0.1 K/uL (0-0.2); BASOPHILS % (AUTO) 0.5 % (0.0-3.0); EOSINOPHILS % (AUTO) 0.4 % (0.0-7.0); HEMATOCRIT 43.3 % (37.0-47.0); HEMOGLOBIN 14.4 g/dl (12.0-16.0); IMMATURE GRANULOCYTE # (AUTO) 0.1 (0.0-1.0); IMMATURE GRANULOCYTE % (AUTO) 0.5 % (0.0-5.0); LYMPHOCYTES # (AUTO) 1.6 K/uL (0.60-3.4); LYMPHOCYTES % (AUTO) 15.7 (10.0-50.0); MEAN CORPUSCULAR HEMOGLOBIN 30.4 pg (27.0-31.0); MEAN CORPUSCULAR HGB CONC 33.3 (31.8-35.4); MEAN CORPUSCULAR VOLUME 91.4 fl (81.0-99.0); MONOCYTES # (AUTO) 1.2 K/uL (0.4-2.0); MONOCYTES % (AUTO) 11.8 (0-10); NEUTROPHILS # (AUTO) 7.1 K/ul (2.0-6.9); NEUTROPHILS % (AUTO) 71.1 % (42.2-75.2); PLATELET COUNT 380 10^3/uL (140-440); RDW COEFFICIENT OF VARIATION 13.7 % (11.6-14.8); RED BLOOD COUNT 4.74 10^6/ul (4.20-5.40); WHITE BLOOD COUNT 10.02 K/ul (4.6-10.2)
[2022-10-17 13:29] LABS: ALANINE AMINOTRANSFERASE 32.3 U/L (0-35); ALBUMIN 4.82 g/dL (3.5-5.0); ALKALINE PHOSPHATASE 178.6 U/L (38-126); ASPARTATE AMINO TRANSFERASE 27.7 U/L (14-36); BILIRUBIN,TOTAL 0.55 mg/dL (0.2-1.3); BLOOD UREA NITROGEN 19.6 mg/dL (7-17); CALCIUM 9.52 mg/dL (8.4-10.2); CARBON DIOXIDE 26.3 mmol/L (22-30.0); CHLORIDE 102.5 mmol/L (98-107); CREATININE 0.78 mg/dL (0.60-1.30); GLUCOSE 107.8 mg/dL (74-106); POTASSIUM 4.22 mmol/L (3.5-5.1); SODIUM 137.6 mmol/L (134.5-145); TOTAL PROTEIN 8.32 g/dL (6.3-8.2)
--- NOTE | 2022-10-17 13:39 | DI ---
EXAM: CHEST RADIOGRAPH (1 VIEW) TECHNIQUE: Frontal Chest Radiograph. HISTORY: Shortness of breath, productive cough COMPARISON: 04/03/2022. FINDINGS: Lines, Tubes, Devices: None Lungs and Pleura: No focal consolidation. No pleural effusion. No pneumothorax. Atelectasis in the left lower lung. Cardiac silhouette: Normal. Bones: Severe curvature of the spine. IMPRESSION: No acute radiographic abnormality.
[2022-10-17 13:40] LABS: TROPONIN I < 0.012 ng/ml (0.0000-0.120)
[2022-10-17 13:48] LABS: MOLECULAR FLU A NEGATIVE BY NAAT (NEGATIVE); MOLECULAR FLU B NEGATIVE BY NAAT (NEGATIVE)
[2022-10-17] MEDS ORDERED: LEVAQUIN 500 MG/100 ML D5W 500 MG/100 ML BAG IV ONE (14:04)
[2022-10-17] MEDS ORDERED: ZOFRAN 4 MG/2 ML IVP PRN (14:05)
[2022-10-17] MEDS ORDERED: TYLENOL PO PRN (14:05)
[2022-10-17] MEDS ORDERED: MYLANTA SUSP PO PRN (14:05)
[2022-10-17] MEDS ORDERED: ALBUTEROL 0.083% NEB NEB PRN (14:05)
[2022-10-17] MEDS ORDERED: SODIUM CHLORIDE 1,000 ML IV STA (14:11)
[2022-10-17 14:17] LABS: SARS COV-2 RNA RAPID NAAT NEGATIVE (NEGATIVE)
[2022-10-17 15:11] VITALS: BMI 26.2
--- NOTE | 2022-10-17 15:20 | PCM ---
Date of Service Date Seen by Provider: 10/17/22 Time Seen by Provider: 15:00 Admit Day/Time Admission Date: 10/17/22 Reason for Admission Chief Complaint: COPD EXACERBATION Hospital Provider Hospital Provider: SANJUANA REBOLLAR, [facility] Primary Care Physician Primary Care Physician: TRISTAN HURT History of Present Illness History of Present Illness: 51 yo female presented to the ER by EMS from home with complaints of shortness of breath. Patient states she has been short of breath for 4 days. Has had a cough and weakness as well. Reports she has not been able to catch her breath well enough to take a shower or perform regular ADLs. States cough was initially dry, but became productive with clear thick sputum yesterday. Denies any fever that she is aware of, chills, body aches, chest pain, N/V/D. She has pmh of COPD and wears 2L of O2 via NC at all times at home. States she has nebulizer treatments and inhalers at home that she has been using but have not been effective. Had a DrBilly appointment today with PCP but was unable to go due to current condition. Case Discussed With Case Discussed With: Patient's case was discussed with the ER Physicians, Dr. Beatty [facility] Medical History (Updated 10/17/22 @ 15:21 by SANJUANA REBOLLAR) Arthritis M19.90 - Unspecified osteoarthritis, unspecified site (ICD-10) Asthma J45.909 - Unspecified asthma, uncomplicated (ICD-10) Chronic back pain M54.9 - Dorsalgia, unspecified (ICD-10) Chronic obstructive pulmonary disease J44.9 - Chronic obstructive pulmonary disease, unspecified (ICD-10) Generalized anxiety disorder (03/12/18) F41.1 - Generalized anxiety disorder (ICD-10) History of seasonal allergies Z88.9 - Allergy status to unspecified drugs, medicaments and biological substances status (ICD-10) Hypertension I10 - Essential (primary) hypertension (ICD-10) Osteoporosis M81.0 - Age-related osteoporosis without current pathological fracture (ICD- 10) Severe scoliosis M41.9 - Scoliosis, unspecified (ICD-10) Suicide attempt T14.91XA - Suicide attempt, initial encounter (ICD-10) Vitamin B12 deficiency E53.8 - Deficiency of other specified B group vitamins (ICD-10) Surgical History History of section Z98.891 - History of uterine scar from previous surgery (ICD-10) neck surgery Status post appendectomy Z90.49 - Acquired absence of other specified parts of digestive tract (ICD- 10) Family History Grandfather/Grandmother COPD (chronic obstructive pulmonary disease) Asthma SISTER Cerebrovascular accident Mother Anxiety Social History Smoking and tobacco status: Current every day smoker Tobacco type: cigarettes Smoking packs per day: 0.5 Tobacco: How many years used: 35 Quit status: considering quitting Second hand smoke exposure: Yes Smoking risk assessment performed: No Alcohol intake: current Alcohol intake frequency: holidays/special occasions only Counseling given: No Substance use type: does not use Counseling given: No Diamante/hinduism: Jainism Special diamante needs: No Agree to transfusion: Yes Adopted: No Caregiver/support person: Yes Foster care: No Household members: other Other Household Members: sister Housing: apartment Marital status: X LEGALLY Lives independently: Yes Number of children: 3 Number of grandchildren: 0 Highest education level completed: high school graduate Financial difficulty paying for basics: not applicable service: No senior living: No Current occupational status: unemployed Current occupation: applying for disability due to back pain Current occupational exposures/hazards: No Pets and animals: No Leisure activites: other History of recent travel: No Sexually active: No Do you think of yourself as: straight/heterosexual Current gender identity: female Seatbelt use: always Helmet use: No Drives intoxicated or rides with intoxicated electric mule driver: No Water heater temperature set < 120 degrees: Yes Working smoke detector in home: Yes Fire extinguisher in home: Yes Carbon monoxide detector in home: Yes Firearms in home: No Allergies Allergies Allergy/AdvReac Type Severity Reaction Status Date / Time Penicillins AdvReac Severe Rash Verified 10/17/22 12:45 Current Medications Home Medications blood pressure monitor (Blood Pressure Kit) #1 ea 10/20/21 [Rx Confirmed 10/17/22 Last Taken Unknown] blood pressure monitor #1 ea 12/06/21 [Rx Confirmed 10/17/22 Last Taken Unknown] albuterol sulfate 2.5 mg/3 mL (0.083 %) solution for nebulization 2.5 mg (3 mL) inhalation Q4HR PRN shortness of breath or wheezing ##100 12/07/21 [Rx Confirmed 10/17/22 Last Taken Unknown] hydrocodone 7.5 mg-acetaminophen 325 mg tablet 1 tab PO BID PRN Analgesia 12/07/21 [History Confirmed 10/17/22 Last Taken Unknown] tizanidine 4 mg tablet 2 mg PO TID PRN Pain 12/07/21 [History Confirmed 10/17/22 Last Taken Unknown] buspirone 15 mg tablet 15 mg PO TID #90 tabs 02/13/22 [Rx Confirmed 10/17/22 Last Taken Unknown] albuterol sulfate 90 mcg/actuation aerosol inhaler (ProAir HFA) 2 puff inhalation Q4-6H PRN shortness of breath or wheezing #8.5 grams 03/08/22 [Rx Confirmed 10/17/22 Last Taken Unknown] amitriptyline 25 mg tablet 25 mg PO QHS #30 tabs 03/08/22 [Rx Confirmed 10/17/22 Last Taken Unknown] budesonide-formoterol HFA 160 mcg-4.5 mcg/actuation aerosol inhaler (Symbicort) See Rx Instructions .Route .COMPLEX #10.2 blisters 03/08/22 [Rx Confirmed 10/17/22 Last Taken Unknown] gabapentin 400 mg capsule 400 mg PO TID pain #90 caps 03/08/22 [Rx Confirmed 10/17/22 Last Taken Unknown] lisinopril 40 mg tablet 40 mg PO QDAY #30 tabs 03/08/22 [Rx Confirmed 10/17/22 Last Taken Unknown] tiotropium bromide 18 mcg capsule with inhalation device (Spiriva with HandiHaler) See Rx Instructions .Route .COMPLEX #30 blisters 04/06/22 [Rx Confirmed 10/17/22 Last Taken Unknown] pantoprazole 40 mg tablet,delayed release See Rx Instructions .Route .COMPLEX #30 tabs 05/04/22 [Rx Confirmed 10/17/22 Last Taken Unknown] alendronate 70 mg tablet 70 mg PO WEEKLY 10/17/22 [History Confirmed 10/17/22 Last Taken Unknown] calcium 600 mg capsule 600 mg PO BID 10/17/22 [History Confirmed 10/17/22 Last Taken Unknown] clonidine HCl 0.1 mg tablet 0.1 mg PO BID PRN hypertensive emergency 10/17/22 [History Confirmed 10/17/22 Last Taken Unknown] ergocalciferol (vitamin D2) 1,250 mcg (50,000 unit) capsule 50,000 unit PO WEEKLY 10/17/22 [History Confirmed 10/17/22 Last Taken Unknown] fluoxetine 40 mg capsule (Prozac) 20 mg PO QAM 10/17/22 [History Confirmed 10/17/22 Last Taken Unknown] meloxicam 15 mg tablet 15 mg PO DAILY 10/17/22 [History Confirmed 10/17/22 Last Taken Unknown] Home Acetaminophen (Acetaminophen 325 Mg Tablet) 650 mg PO Q4H PRN PRN Reason: Fever >101 Al Hydroxide/Mg Hydroxide (Mag Hydrox/Al Hydrox/Simeth 30 Ml Cup) 30 ml PO BID PRN PRN Reason: Heartburn Albuterol Sulfate (Albuterol Sulfate 0.083% Vial.Neb) 2.5 mg NEB RTQID PRN PRN Reason: Shortness of breath Albuterol/Ipratropium (Ipratropium/Albuterol Vial.Neb) 3 ml NEB RTQ6H HERMINIO Levofloxacin/Dextrose (Levaquin 750 Mg/150 Ml D5w) 750 mg in 150 mls @ 100 mls/hr IV DAILY HERMINIO Stop: 10/21/22 08:59 Sodium Chloride (Sodium Chloride) 1,000 mls @ 125 mls/hr IV .Q8H STA Stop: 10/17/22 22:10 Last Admin: 10/17/22 15:22 Dose: 125 mls/hr Methylprednisolone Sodium Succinate (Methylprednisolone Sod Succ/Pf 40 Mg/Ml Vial) 40 mg IVP Q8HR HERMINIO Ondansetron HCl (Ondansetron Hcl/Pf 4 Mg/2 Ml Sdv) 4 mg IVP Q8H PRN PRN Reason: Nausea / Vomiting Discontinued Medications Albuterol/Ipratropium (Ipratropium/Albuterol Vial.Neb) 3 ml NEB ONCE STA Stop: 10/17/22 12:58 Last Admin: 10/17/22 13:13 Dose: 3 ml Levofloxacin/Dextrose (Levaquin 500 Mg/100 Ml D5w) 500 mg in 100 mls @ 100 mls/hr IV ONCE ONE Stop: 10/17/22 15:03 Last Admin: 10/17/22 14:16 Dose: 100 mls/hr Methylprednisolone Sodium Succinate (Methylprednisolone Sod Succ/Pf 125 Mg/2 Ml Vial) 125 mg IVP ONCE STA Stop: 10/17/22 12:57 Last Admin: 10/17/22 13:01 Dose: 125 mg Review of Systems Constitutional: Reports Fatigue, Recent Weight Loss and Weakness Head: Reports Normocephalic and Atraumatic Eyes: Reports No symptoms Ears: Reports No symptoms Nose: Reports Congestion Mouth: Reports No symptoms Throat: Reports No symptoms Cardiovascular: Reports No symptoms Respiratory: Reports Cough (productive with clear thick sputum) and Shortness of air Gastrointestinal: Reports No symptoms Genitourinary: Reports No Symptoms Musculoskeletal: Reports No symptoms Endocrine: Reports No symptoms Hematology: Reports No symptoms Immunology: Reports No symptoms Neurological: Reports No symptoms Psychiatric: Reports No symptoms Physical examination Most Recent Vital Signs: Most Recent Vital Signs Temperature 97.2 F L 10/17/22 12:39 Temperature Source Infrared 10/17/22 12:39 Pulse Rate 111 H 10/17/22 12:39 Respiratory Rate 28 H 10/17/22 12:39 Blood Pressure 116/86 10/17/22 12:39 O2 Sat by Pulse Oximetry 98 10/17/22 12:39 Height 5 ft 1 in 10/17/22 12:39 Weight 152 lb 10/17/22 12:39 Telemetry Type Remote Telemetry 10/17/22 15:00 Telemetry Monitoring Started 10/17/22 15:00 Telemetry Heart Rate 114 H 10/17/22 15:00 EKG [place] Interval 0.14 10/17/22 15:00 EKG QRS Interval 0.13 H 10/17/22 15:00 Telemetry Strip Reading SR/ST with BBB 10/17/22 15:00 Appearance: Positive No Apparent Distress, Alert and Oriented x3 and Ill- Appearing Skin: Positive [place], Warm, Good Turgor and Good Color HEENT: Positive Normocephalic, Atraumatic and PERRLA Neck: Positive Supple and Midline Trachea Chest/Lungs: Positive Symmetrical With Equal Breath Sounds, Rhonci, Wheezes (inspiratory), Good Air Movement all 4 Lung Chance and Other (unable to lay flat or with HOB <45 degrees without having difficulty breathing) Heart: Positive RRR, Pulses Normal, No S3 Auscultated and No S4 Auscultated GI/: Positive Soft, Nontender, Bowel Sounds Normal, No Distention and No Organomegaly Musculoskeletal: Positive Normal Gait and Station Extremities: Positive Intact Peripheral Pulses, Stable Joints Without Laxity and Good ROM in All Joints Neurological: Positive Sensation Intact, Motor intact, Alert, Oriented and Muscle Strength 5/5 in Upper and Lower Extremities Bilaterally Psychiatric: Positive Oriented x4, Appropriate Mood, Appropriate Affect, Intact Memory, Good Short-Term Recall, Good Long-Term Recall, Normal Judgement and Normal Insight Labs This Visit Labs This Visit: Labs This Visit 10/17/22 10/17/22 10/17/22 13:10 13:25 13:29 WBC 10.02 RBC 4.74 Hgb 14.4 Hct 43.3 MCV 91.4 MCH 30.4 MCHC 33.3 RDW Coeff of Jj 13.7 Plt Count 380 Immature Gran % (Auto) 0.5 Neut % (Auto) 71.1 Lymph % (Auto) 15.7 [place] % (Auto) 11.8 H Eos % (Auto) 0.4 Baso % (Auto) 0.5 Neut # (Auto) 7.1 H Lymph # (Auto) 1.6 [place] # (Auto) 1.2 Eos # (Auto) 0.0 Baso # (Auto) 0.1 Immature Gran # (Auto) 0.1 Sodium 137.6 Potassium 4.22 Chloride 102.5 Carbon Dioxide 26.3 Anion Gap 13.02 BUN 19.6 H Creatinine 0.78 Estimated GFR (MDRD) 77.00 BUN/Creatinine Ratio 25.12 Glucose 107.8 H Calcium 9.52 Total Bilirubin 0.55 AST 27.7 ALT 32.3 Alkaline Phosphatase 178.6 H Troponin I < 0.012 Total Protein 8.32 H Albumin 4.82 Globulin 3.50 Albumin/Globulin Ratio 1.37 Influ A Molecular Assay Negative by naat Influ B Molecular Assay Negative by naat SARS CoV-2 RNA Rapid OBDULIO Negative Imaging Imagining: Procedure(s): CHEST, 1V AP ONLY IMPRESSION: No acute radiographic abnormality. Review Statement Review Statement: I have independently reviewed and interpreted the labs/EKGs/imaging that were ordered by the ER provider. I have reviewed all outside records that are available currently in our EMR including imaging/notes/labs from previous visits. Plan Plan: 1. Acute COPD Exacerbation - RT following, nebs, continue home inhalers, telemetry, levaquin Q24H, solumedrol Q8H, sputum culture 2. Sinus Tachycardia - likely due to #1 with use of nebs and inhalers, giving NS@125mL/hr for mildly elevated BUN 3. Hypertension - chronic, stable, continue home medications 4. Chronic Back pain/Arthritis - continue home medications 5. Vitamin B12 Deficiency - chronic, due for injection today - ordered 6. Tobacco use - nicotine patch if patient desires, discussed smoking cessation DVT Prophylaxis: Lovenox Time Spent: Greater than 80 minutes spent with patient, 50% of the time spent with this patient was devoted to counseling and coordination of care. Advanced Care Plannin minutes spent discussing advance care planning. Smoking Cessation: 5 minutes spent discussing smoking cessation. Disposition: Admit to Med/Surg Observation Discussed Plan of Care with Dr. Sousa. Medications Medication Orders: Medications Ordered Category Date Time Status Acetaminophen [Tylenol] Meds 10/17/22 14:05 Active 650 mg PO Q4H PRN Albuterol Sulfate 0.083% Neb [Albuterol 0.083% Neb] Meds 10/17/22 14:05 Active 2.5 mg NEB RTQID PRN Ipratropium/Albuterol Neb [Duoneb] Meds 10/17/22 18:00 Active 3 ml NEB RTQ6H Levofloxacin/D5w [Levaquin 750 mg/150 ml D5w] Meds 10/18/22 09:00 Active 750 mg in 150 ml IV DAILY Mag Hydrox/Al Hydrox/Simeth [Mylanta Susp] Meds 10/17/22 14:05 Active 30 ml PO BID PRN Methylprednisolone Sod Succ/Pf [Solu-Medrol 40 mg] Meds 10/17/22 21:00 Active 40 mg IVP Q8HR Ondansetron HCl/Pf [Zofran 4 mg/2 ml] Meds 10/17/22 14:05 Active 4 mg IVP Q8H PRN Sodium Chloride 0.9% [Sodium Chloride] 1,000 ml Meds 10/17/22 14:11 Active IV 125 mls/hr
[2022-10-17] MEDS ORDERED: ZANAFLEX PO PRN (15:46)
[2022-10-17] MEDS ORDERED: CATAPRES PO PRN (15:46)
[2022-10-17] MEDS ORDERED: NORCO 7.5-325 PO PRN (15:46)
[2022-10-17] MEDS: LOVENOX SUBCUT SCH (17:10)
[2022-10-17] MEDS: DUONEB NEB SCH ×2 (17:25→23:00)
[2022-10-17] MEDS: CALCIUM 500 + VIT D 5 MCG (200 IU) TABLET PO SCH (20:08)
[2022-10-17] MEDS: SYMBICORT 160-4.5 MCG INHALER IH SCH (20:08)
[2022-10-17] MEDS: NEURONTIN PO SCH ×2 (20:08)
[2022-10-17] MEDS: BUSPAR PO SCH (20:09)
[2022-10-17] MEDS ORDERED: NON-FORMULARY MEDICATION (Gabapentin 400 mg capsule) PO SCH (21:00)
[2022-10-17] MEDS ORDERED: ELAVIL PO SCH (21:00)
[2022-10-17] MEDS: SOLU-MEDROL 40 MG IVP SCH (21:28)
[2022-10-18 02:37] VITALS: RESP 18
[2022-10-18 05:06] LABS: BASOPHILS % (AUTO) 0.1 % (0.0-3.0); HEMATOCRIT 41.5 % (37.0-47.0); HEMOGLOBIN 13.5 g/dl (12.0-16.0); IMMATURE GRANULOCYTE # (AUTO) 0.1 (0.0-1.0); IMMATURE GRANULOCYTE % (AUTO) 1.5 % (0.0-5.0); LYMPHOCYTES # (AUTO) 0.8 K/uL (0.60-3.4); LYMPHOCYTES % (AUTO) 9.4 (10.0-50.0); MEAN CORPUSCULAR HEMOGLOBIN 30.4 pg (27.0-31.0); MEAN CORPUSCULAR HGB CONC 32.5 (31.8-35.4); MEAN CORPUSCULAR VOLUME 93.5 fl (81.0-99.0); MONOCYTES # (AUTO) 0.4 K/uL (0.4-2.0); MONOCYTES % (AUTO) 4.8 (0-10); NEUTROPHILS # (AUTO) 7.2 K/ul (2.0-6.9); NEUTROPHILS % (AUTO) 84.2 % (42.2-75.2); PLATELET COUNT 339 10^3/uL (140-440); RDW COEFFICIENT OF VARIATION 13.6 % (11.6-14.8); RED BLOOD COUNT 4.44 10^6/ul (4.20-5.40)
[2022-10-18] MEDS: DUONEB NEB SCH ×2 (05:10→11:05)
[2022-10-18 05:17] LABS: ALANINE AMINOTRANSFERASE 25.4 U/L (0-35); ALBUMIN 4.28 g/dL (3.5-5.0); ASPARTATE AMINO TRANSFERASE 20.6 U/L (14-36); BILIRUBIN,TOTAL 0.24 mg/dL (0.2-1.3); BLOOD UREA NITROGEN 18.3 mg/dL (7-17); CALCIUM 9.59 mg/dL (8.4-10.2); CHLORIDE 104.6 mmol/L (98-107); CREATININE 0.78 mg/dL (0.60-1.30); GLUCOSE 143.6 mg/dL (74-106); MAGNESIUM 2.54 mg/dL (1.6-2.3); POTASSIUM 4.64 mmol/L (3.5-5.1); SODIUM 139.3 mmol/L (134.5-145); TOTAL PROTEIN 7.46 g/dL (6.3-8.2)
[2022-10-18] MEDS: SOLU-MEDROL 40 MG IVP SCH ×2 (05:47→12:16)
[2022-10-18] MEDS ORDERED: PROTONIX PO SCH (06:30)
[2022-10-18] MEDS ORDERED: CHLORASEPTIC SPRAY MM PRN (08:14)
[2022-10-18] MEDS ORDERED: MOBIC PO SCH (08:30)
[2022-10-18] MEDS ORDERED: PROZAC PO SCH (09:00)
[2022-10-18] MEDS ORDERED: ZESTRIL PO SCH (09:00)
[2022-10-18] MEDS ORDERED: LEVAQUIN 750 MG/150 ML D5W 750 MG/150 ML BAG IV SCH (09:00)
[2022-10-18] MEDS ORDERED: SPIRIVA IH SCH (09:00)
[2022-10-18] MEDS: NEURONTIN PO SCH ×2 (09:11→09:12)
[2022-10-18] MEDS: CALCIUM 500 + VIT D 5 MCG (200 IU) TABLET PO SCH (09:12)
[2022-10-18] MEDS: BUSPAR PO SCH (09:13)
[2022-10-18] MEDS: SYMBICORT 160-4.5 MCG INHALER IH SCH (09:15)
[2022-10-18] MEDS: LOVENOX SUBCUT SCH (09:18)
[2022-10-18 10:01] VITALS: BP 117/75; TEMP 96.7
--- NOTE | 2022-10-18 12:00 | CT ---
EXAM: CHEST CTA WITH CONTRAST (PULMONARY ARTERY) HISTORY: Shortness of breath. Rule out pulmonary embolus. TECHNIQUE: CTA acquisition of the chest from the thoracic inlet to the upper abdomen following IV con trast administration timed to filling of the pulmonary artery. 3D/MIP/VR images were utilized. COMPARISON: None. FINDINGS: Lines, Tubes, Devices: None. Pulmonary arteries: - Diagnostic quality: Adequate. - Central(Main/Lobar/Interlobar): No embolus. - Peripheral (Segmental/Subsegmental): No embolus. - Right ventricle/Left ventricle ratio (normal <0.9): Normal. - Main pulmonary artery: Normal caliber. Lung Parenchyma, Pleura, and Airways: Mild thickening of the small airways and small amount of scatte red mucus plugging. Mild band-like atelectasis in the left lower lobe. No suspicious pulmonary nodule . No pleural effusion. Thoracic Inlet, Mediastinum, and Marjorie: Thyroid gland is unremarkable. No lymphadenopathy. Heart, Vessels, and Pericardium: Normal caliber aorta. Scattered mixed atherosclerotic plaques of the aorta and branches. Coronary calcifications. No cariomegaly. No pericardial effusion. Bones and Soft Tissues: Marked scoliosis. Moderate compression fracture of the L2 vertebral body wit h status post vertebral plasty. No mass or adenopathy. Upper Abdomen: Post cholecystectomy. Simple appearing right upper pole renal cyst. IMPRESSION: No pulmonary embolus. Thickening of the small airways suggests infection or inflammation. Atherosclerosis and coronary calcifications. All CT scans are performed using dose optimization techniques as appropriate to the performed exam an d include at least one of the following: Automated exposure control, adjustment of the mA and/or kV according t o size, and the use of iterative reconstruction technique.
--- NOTE | 2022-10-18 13:01 | DCSUM ---
Hospital Provider Hospital Provider: SANJUANA REBOLLAR, [facility] Primary Care Physician: TRISTAN HURT Summary of History and Physical Summary of History and Physical: 51 yo female presented to the ER by EMS from home with complaints of shortness of breath. Patient states she has been short of breath for 4 days. Has had a cough and weakness as well. Reports she has not been able to catch her breath well enough to take a shower or perform regular ADLs. States cough was initially dry, but became productive with clear thick sputum yesterday. Denies any fever that she is aware of, chills, body aches, chest pain, N/V/D. She has pmh of COPD and wears 2L of O2 via NC at all times at home. States she has nebulizer treatments and inhalers at home that she has been using but have not been effective. Had a Dr. appointment today with PCP but was unable to go due to current condition. Hospital Course Subjective: No events overnight. Feeling much better today. Does not feel she is coughing as much. Ready to go home. During her stay: 1. Acute COPD Exacerbation - RT following, nebs, continue home inhalers, telemetry, levaquin Q24H, solumedrol Q8H, sputum culture collected 2. Sinus Tachycardia - improved, likely due to #1 with use of nebs and inhalers, r/o PE with CTA which was negative, received IVF overnight. 3. Hypertension - chronic, stable, continue home medications 4. Chronic Back pain/Arthritis - continue home medications 5. Vitamin B12 Deficiency - chronic, due for injection today - ordered 6. Tobacco use - nicotine patch if patient desires, discussed smoking cessation Appearance: Pleasant, No Apparent Distress, Alert and Well-appearing HEENT: MMM and No JVD CVS: No Murmur, No Rubs and No Gallop Abdomen: Soft, Non-Tender and No Distention Respiratory: No Dyspnea Extremities: No Edema Vital Signs: Most Recent Vital Signs Temperature 96.7 F L 10/18/22 10:00 Temperature Source Temporal Artery Scan 10/18/22 10:00 Temperature Source Infrared 10/17/22 12:39 Pulse Rate 105 H 10/18/22 10:00 Respiratory Rate 18 10/18/22 10:00 Blood Pressure 117/75 10/18/22 10:00 Blood Pressure Mean 89 10/18/22 10:00 Blood Pressure Left Arm 114/77 10/17/22 14:45 Blood Pressure Location Right Arm 10/18/22 10:00 Blood Pressure Position Supine 10/18/22 10:00 O2 Sat by Pulse Oximetry 98 10/18/22 10:00 Oxygen Delivery Method Nasal Cannula 10/18/22 10:00 Oxygen Flow Rate 2 10/18/22 10:00 Height 5 ft 1 in 10/17/22 14:45 Weight 139 lb 2 oz 10/17/22 14:45 Telemetry Type Remote Telemetry 10/18/22 07:00 Telemetry Monitoring Continues 10/18/22 07:00 Telemetry Heart Rate 100 10/18/22 07:00 EKG MT Interval 0.14 10/18/22 07:00 EKG QRS Interval 0.12 H 10/18/22 07:00 Telemetry Strip Reading Sr/ST w/ bbb 10/18/22 07:00 Imaging: EXAM: CT scan of the chest without contrast HISTORY: left chest wall pain, fall TECHNIQUE: Helical imaging of the chest was performed without contrast. 5 mm t hin axial images and coronal and sagittal projections were provided for interpretation. FINDINGS: No acute fractures are seen within the osseous structures. There is prominent rotatory dextroscoliosis of the thoracic spine and. The heart is normal size. Lungs are clear. The soft tissues appear within normal limits. There is a nodular mass like opacity seen in the lateral left breast seen on axial image number 44. The findings measure approximately 1.4 cm diameter. IMPRESSION: No acute fractures are seen within the thorax. Abnormal nodular opacity seen in the lateral left breast measuring 1.4 cm. A carcinoma of the left breast cannot be excluded. Correlation with mammography or ultrasound should be performed. Dextroscoliosis of the thoracic spine. Lab Results Last 24 Hours: 10/18/22 10/17/22 10/17/22 04:53 13:29 13:25 WBC 8.50 RBC 4.44 Hgb 13.5 Hct 41.5 MCV 93.5 MCH 30.4 MCHC 32.5 RDW Coeff of Jj 13.6 Plt Count 339 Immature Gran % (Auto) 1.5 Neut % (Auto) 84.2 H Lymph % (Auto) 9.4 L Tift % (Auto) 4.8 Eos % (Auto) 0.0 Baso % (Auto) 0.1 Neut # (Auto) 7.2 H Lymph # (Auto) 0.8 Tift # (Auto) 0.4 Eos # (Auto) 0.0 Baso # (Auto) 0.0 Immature Gran # (Auto) 0.1 Sodium 139.3 Potassium 4.64 Chloride 104.6 Carbon Dioxide 31.0 H Anion Gap 8.34 BUN 18.3 H Creatinine 0.78 Estimated GFR (MDRD) 77.00 BUN/Creatinine Ratio 23.46 Glucose 143.6 H Calcium 9.59 Magnesium 2.54 H Total Bilirubin 0.24 AST 20.6 ALT 25.4 Alkaline Phosphatase 134.0 H D Troponin I Total Protein 7.46 Albumin 4.28 Globulin 3.18 Albumin/Globulin Ratio 1.34 Influ A Molecular Assay Negative by naat Influ B Molecular Assay Negative by naat SARS CoV-2 RNA Rapid OBDULIO Negative 10/17/22 13:10 WBC 10.02 RBC 4.74 Hgb 14.4 Hct 43.3 MCV 91.4 MCH 30.4 MCHC 33.3 RDW Coeff of Jj 13.7 Plt Count 380 Immature Gran % (Auto) 0.5 Neut % (Auto) 71.1 Lymph % (Auto) 15.7 Tift % (Auto) 11.8 H Eos % (Auto) 0.4 Baso % (Auto) 0.5 Neut # (Auto) 7.1 H Lymph # (Auto) 1.6 Tift # (Auto) 1.2 Eos # (Auto) 0.0 Baso # (Auto) 0.1 Immature Gran # (Auto) 0.1 Sodium 137.6 Potassium 4.22 Chloride 102.5 Carbon Dioxide 26.3 Anion Gap 13.02 BUN 19.6 H Creatinine 0.78 Estimated GFR (MDRD) 77.00 BUN/Creatinine Ratio 25.12 Glucose 107.8 H Calcium 9.52 Magnesium Total Bilirubin 0.55 AST 27.7 ALT 32.3 Alkaline Phosphatase 178.6 H Troponin I < 0.012 Total Protein 8.32 H Albumin 4.82 Globulin 3.50 Albumin/Globulin Ratio 1.37 Influ A Molecular Assay Influ B Molecular Assay SARS CoV-2 RNA Rapid OBDULIO Discharge Instructions Discharge Planning: Discharge Planning > 40 minutes Activity as tolerated. Regular diet Take medrol dose pack as directed until completed. Levaquin 500 mg daily by mouth x 7 days Follow-up with PCP as scheduled. Medications Given This Visit: Medications Generic Name Dose Route Start Last Admin Trade Name Freq PRN Reason Stop Dose Admin Acetaminophen 650 mg 10/17/22 14:05 Acetaminophen 325 Mg Tablet PO Q4H PRN Fever >101 Hydrocodone Bitart/Acetaminophen 1 tab 10/17/22 15:46 Hydrocodone Bit/Acetaminophen 7.5/325 Mg Tablet PO BID PRN Pain Al Hydroxide/Mg Hydroxide 30 ml 10/17/22 14:05 Mag Hydrox/Al Hydrox/Simeth 30 Ml Cup PO BID PRN Heartburn Albuterol Sulfate 2.5 mg 10/17/22 14:05 Albuterol Sulfate 0.083% Vial.Neb NEB RTQID PRN Shortness of breath Albuterol/Ipratropium 3 ml 10/17/22 18:00 10/18/22 11:05 Ipratropium/Albuterol Vial.Neb NEB 3 ml RTQ6H HERMINIO Administration Alendronate Sodium 70 mg 10/25/22 06:30 Alendronate Sodium 70 Mg Tablet PO WEEKLY [facility]AMAX [facility] Amitriptyline HCl 25 mg 10/17/22 21:00 10/17/22 20:08 Amitriptyline Hcl 25 Mg Tablet PO 25 mg BEDTIME HERMINIO Administration Budesonide/Formoterol Fumarate 2 puff 10/17/22 21:00 10/18/22 09:15 Budesonide/Formoterol Fumarate 160/4.5 Mcg Inhaler IH 2 puff BID HERMINIO Administration Buspirone HCl 15 mg 10/17/22 21:00 10/18/22 09:13 Buspirone Hcl 10 Mg Tablet PO 15 mg TID HERMINIO Administration Calcium/Vitamin D 1 each 10/17/22 21:00 10/18/22 09:12 Calcium Carbonate/Vitamin D3 500 Mg/5 Mcg(200iu) 1 Each Tablet PO 1 each BID HERMINIO Administration Clonidine 0.1 mg 10/17/22 15:46 Clonidine Hcl 0.1 Mg Tablet PO BID PRN Hypertension Enoxaparin Sodium 30 mg 10/17/22 18:00 10/18/22 09:18 Enoxaparin Sodium 30 Mg/0.3 Ml Syr SUBCUT 30 mg DAILY HERMINIO Administration Ergocalciferol 50,000 unit 10/22/22 09:00 Ergocalciferol (Vitamin D2) 50,000 Unit Capsule PO WEEKLY HERMINIO Fluoxetine HCl 20 mg 10/18/22 09:00 10/18/22 09:11 Fluoxetine Hcl 20 Mg Capsule PO 20 mg DAILY HERMINIO Administration Gabapentin 300 mg 10/17/22 21:00 10/18/22 09:11 Gabapentin 300 Mg Capsule PO 300 mg TID HERMINIO Administration Gabapentin 100 mg 10/17/22 21:00 10/18/22 09:12 Gabapentin 100 Mg Capsule PO 100 mg TID HERMINIO Administration Levofloxacin/Dextrose 750 mg in 150 mls @ 100 mls/hr 10/18/22 09:00 10/18/22 09:16 Levaquin 750 Mg/150 Ml D5w IV 10/21/22 08:59 100 mls/hr DAILY HERMINIO Administration Lisinopril 40 mg 10/18/22 09:00 10/18/22 09:12 Lisinopril 40 Mg Tablet PO 40 mg DAILY HERMINIO Administration Meloxicam 15 mg 10/18/22 08:30 10/18/22 09:10 Meloxicam 7.5 Mg Tablet PO 15 mg DAILYWM HERMINIO Administration Methylprednisolone Sodium Succinate 40 mg 10/17/22 21:00 10/18/22 12:16 Methylprednisolone Sod Succ/Pf 40 Mg/Ml Vial IVP 40 mg Q8HR HERMINIO Administration Ondansetron HCl 4 mg 10/17/22 14:05 Ondansetron Hcl/Pf 4 Mg/2 Ml Sdv IVP Q8H PRN Nausea / Vomiting Pantoprazole Sodium 40 mg 10/18/22 06:30 10/18/22 05:53 Pantoprazole Sodium 40 Mg Tablet.Dr PO 40 mg QDAC HERMINIO Administration Phenol/Menthol 1 spray 10/18/22 08:14 10/18/22 09:14 Phenol 1 [place] Btl MM 1 spray Q2H PRN Administration SORE THROAT Tiotropium [place] 1 cap 10/18/22 09:00 10/18/22 09:30 Tiotropium [place] 18 Mcg Cap.W.Dev IH 1 cap DAILY HERMINIO Administration Tizanidine HCl 2 mg 10/17/22 15:46 Tizanidine Hcl 4 Mg Tablet PO TID PRN Spasms Medications Given This Visit: Medications at Discharge (Home Meds & RX) blood pressure monitor (Blood Pressure Kit) #1 ea 10/20/21 blood pressure monitor #1 ea 12/06/21 albuterol sulfate 2.5 mg/3 mL (0.083 %) solution for nebulization 2.5 mg (3 mL) inhalation Q4HR PRN shortness of breath or wheezing ##100 12/07/21 hydrocodone 7.5 mg-acetaminophen 325 mg tablet 1 tab PO BID PRN Analgesia 12/07/21 tizanidine 4 mg tablet 2 mg PO TID PRN Pain 12/07/21 buspirone 15 mg tablet 15 mg PO TID #90 tabs 02/13/22 albuterol sulfate 90 mcg/actuation aerosol inhaler (ProAir HFA) 2 puff inhal ation Q4-6H PRN shortness of breath or wheezing #8.5 grams 03/08/22 amitriptyline 25 mg tablet 25 mg PO QHS #30 tabs 03/08/22 budesonide-formoterol HFA 160 mcg-4.5 mcg/actuation aerosol inhaler (Symbicort) See Rx Instructions .Route .COMPLEX #10.2 blisters 03/08/22 gabapentin 400 mg capsule 400 mg PO TID pain #90 caps 03/08/22 lisinopril 40 mg tablet 40 mg PO QDAY #30 tabs 03/08/22 tiotropium bromide 18 mcg capsule with inhalation device (Spiriva with HandiHaler) See Rx Instructions .Route .COMPLEX #30 blisters 04/06/22 pantoprazole 40 mg tablet,delayed release See Rx Instructions .Route .COMPLEX #30 tabs 05/04/22 alendronate 70 mg tablet 70 mg PO WEEKLY 10/17/22 calcium 600 mg capsule 600 mg PO BID 10/17/22 clonidine HCl 0.1 mg tablet 0.1 mg PO BID PRN hypertensive emergency 10/17/22 ergocalciferol (vitamin D2) 1,250 mcg (50,000 unit) capsule 50,000 unit PO WEEKLY 10/17/22 fluoxetine 40 mg capsule (Prozac) 20 mg PO QAM 10/17/22 meloxicam 15 mg tablet 15 mg PO DAILY 10/17/22 levofloxacin 500 mg tablet 500 mg PO DAILY #7 tabs 10/18/22 methylprednisolone 4 mg tablets in a dose pack (Medrol (Joseph)) See Rx Instructions PO .COMPLEX #21 ea 10/18/22 phenol 1.4 % mucosal aerosol spray (Chloraseptic Throat [place]) 1 spray MM Q2H PRN #1 ea 10/18/22 Discharge Plan Discharge Discharge Orders: Discharge Patient (ONCE); Ordered 10/18/22 Ordered By: JOSE EDUARDO BHAGAT Activity Restrictions/Additional Instructions: Activity as tolerated. Regular diet Take medrol dose pack as directed until completed. Levaquin 500 mg daily by mouth x 7 days YOU HAVE A HOSPITAL FOLLOW UP APPOINTMENT ON September AT 8:30AM. SHOULD YOU HAVE ANY QUESTIONS OR NEED TO RESCHEDULE YOU CAN CONTACT THEIR OFFICE AT [phone]. Instructions: COPD (Chronic Obstructive Pulmonary Disease) (GEN) Patient Disposition: HOME SELF-CARE Prescriptions: New Chloraseptic Throat [place] 1.4 % Aerosol,[place] 1 spray MM Q2H PRNQty: 1 0RF levofloxacin 500 mg tablet 500 mg PO DAILY Qty: 7 0RF methylprednisolone [Medrol (Joseph)] 4 mg tablets,dose pack See Rx Instructions .ROUTE .COMPLEX Qty: 21 0RF Rx Instructions: orally per package directions Continued buspirone 15 mg tablet 15 mg PO TID Qty: 90 1RF budesonide-formoterol [Symbicort] 160-4.5 mcg/actuation HFA aerosol inhaler See Rx Instructions .ROUTE .COMPLEX Qty: 10.2 2RF Dose Instruction: USE 2 PUFFS TWICE DAILY Rx Instructions: USE 2 PUFFS TWICE DAILY albuterol sulfate [ProAir HFA] 90 mcg/actuation HFA aerosol inhaler 2 puff inhalation Q4-6H PRN (Reason: shortness of breath or wheezing) Qty: 8.5 2RF amitriptyline 25 mg tablet 25 mg PO QHS Qty: 30 1RF gabapentin 400 mg capsule 400 mg PO TID Qty: 90 2RF lisinopril 40 mg tablet 40 mg PO QDAY Qty: 30 2RF Spiriva with HandiHaler 18 mcg capsule, w/inhalation device See Rx Instructions .ROUTE .COMPLEX Qty: 30 3RF Dose Instruction: PUNCTURE ONE CAPSULE AND USE 2 INHALATIONS TO INHALE CONTENTS OF CAPSULE ONCE DAILY Rx Instructions: PUNCTURE ONE CAPSULE AND USE 2 INHALATIONS TO INHALE CONTENTS OF CAPSULE ONCE DAILY pantoprazole 40 mg tablet,delayed release (DR/EC) See Rx Instructions .ROUTE .COMPLEX Qty: 30 1RF Dose Instruction: TAKE ONE TABLET DAILY GENERIC FOR PROTONIX Rx Instructions: TAKE ONE TABLET DAILY GENERIC FOR PROTONIX ergocalciferol (vitamin D2) 1,250 mcg (50,000 unit) capsule 50,000 unit PO WEEKLY alendronate 70 mg tablet 70 mg PO WEEKLY meloxicam 15 mg tablet 15 mg PO DAILY calcium 600 mg capsule 600 mg PO BID clonidine HCl 0.1 mg tablet 0.1 mg PO BID PRN (Reason: hypertensive emergency) fluoxetine [Prozac] 40 mg capsule 20 mg PO QAM albuterol sulfate 2.5 mg /3 mL (0.083 %) solution for nebulization 2.5 mg inhalation Q4HR PRN (Reason: shortness of breath or wheezing) Qty: 100 2RF Rx Instructions: Use when home instead of albuterol inhaler as needed for asthma (DME) blood pressure monitor Kit See Rx Instructions .ROUTE Qty: 1 0RF Rx Instructions: Monitor blood pressure twice a day (DME) blood pressure monitor [Blood Pressure Kit] Kit See Rx Instructions .ROUTE Qty: 1 0RF Rx Instructions: Monitor blood pressure twice a day and as needed tizanidine 4 mg tablet 2 mg PO TID PRN (Reason: Pain) hydrocodone-acetaminophen 7.5-325 mg tablet 1 tab PO BID PRN (Reason: Analgesia) Did you review [place] [employer] for ALL controlled substances?: No Discussed opioids are addictive and Narcan is available by prescription or from pharmacy.: No Condition: Fair
[2022-10-22] MEDS ORDERED: DRISDOL PO SCH (09:00)
[2022-10-25] MEDS ORDERED: FOSAMAX PO SCH (06:30)
== END 2022-10-18 13:15 | disposition home or self-care (01) ==
LOC: ED 12:37 → MEDSURG B 14:21 → INTOOBSV 14:21 → MEDSURG B 14:33
PROVIDERS: ADMIT Hospitalist; ATTEND Nurse Practitioner Family
DX: Z90.49 Acquired absence of other specified parts of digestive tract; E53.8 Deficiency of other specified B group vitamins; I10 Essential (primary) hypertension; Z99.81 Dependence on supplemental oxygen; F41.1 Generalized anxiety disorder; M41.9 Scoliosis, unspecified; J96.01 Acute respiratory failure with hypoxia; J45.909 Unspecified asthma, uncomplicated; R00.0 Tachycardia, unspecified; M54.9 Dorsalgia, unspecified; M19.90 Unspecified osteoarthritis, unspecified site; Z20.822 Contact with and (suspected) exposure to COVID-19; Z51.81 Encounter for therapeutic drug level monitoring; J44.1 Chronic obstructive pulmonary disease with (acute) exacerbation; F17.210 Nicotine dependence, cigarettes, uncomplicated; J44.9 Chronic obstructive pulmonary disease, unspecified; Z79.899 Other long term (current) drug therapy

== ENCOUNTER 2023-04-30 09:19 | Observation (INO) ==
[2023-04-30] MEDS ORDERED: SOLU-MEDROL 125 MG IVP ONE (09:39)
[2023-04-30] MEDS ORDERED: DUONEB NEB ONE (09:39)
[2023-04-30] MEDS ORDERED: PULMICORT 0.25 MG/2 ML NEB ONE (09:39)
[2023-04-30 09:54] LABS: BASOPHILS # (AUTO) 0.1 K/uL (0-0.2); BASOPHILS % (AUTO) 0.5 % (0.0-3.0); EOSINOPHILS # (AUTO) 0.2 K/ul (0.0-0.7); EOSINOPHILS % (AUTO) 1.2 % (0.0-7.0); HEMATOCRIT 44.6 % (37.0-47.0); HEMOGLOBIN 13.7 g/dl (12.0-16.0); IMMATURE GRANULOCYTE # (AUTO) 0.1 (0.0-1.0); IMMATURE GRANULOCYTE % (AUTO) 0.7 % (0.0-5.0); LYMPHOCYTES # (AUTO) 1.3 K/uL (0.60-3.4); LYMPHOCYTES % (AUTO) 8.2 (10.0-50.0); MEAN CORPUSCULAR HEMOGLOBIN 29.5 pg (27.0-31.0); MEAN CORPUSCULAR HGB CONC 30.7 (31.8-35.4); MEAN CORPUSCULAR VOLUME 96.1 fl (81.0-99.0); MONOCYTES # (AUTO) 1.5 K/uL (0.4-2.0); MONOCYTES % (AUTO) 9.9 (0-10); NEUTROPHILS # (AUTO) 12.2 K/ul (2.0-6.9); NEUTROPHILS % (AUTO) 79.5 % (42.2-75.2); PLATELET COUNT 312 10^3/uL (140-440); RDW COEFFICIENT OF VARIATION 15.2 % (11.6-14.8); RED BLOOD COUNT 4.64 10^6/ul (4.20-5.40); WHITE BLOOD COUNT 15.31 K/ul (4.6-10.2)
[2023-04-30 10:08] LABS: ALANINE AMINOTRANSFERASE 28.5 U/L (0-35); ALBUMIN 4.19 g/dL (3.5-5.0); ALKALINE PHOSPHATASE 104.6 U/L (38-126); ASPARTATE AMINO TRANSFERASE 25.6 U/L (14-36); BILIRUBIN,TOTAL 0.47 mg/dL (0.2-1.3); BLOOD UREA NITROGEN 19.4 mg/dL (7-17); CALCIUM 9.32 mg/dL (8.4-10.2); CARBON DIOXIDE 27.3 mmol/L (22-30.0); CHLORIDE 105.2 mmol/L (98-107); CREATININE 0.89 mg/dL (0.60-1.30); GLUCOSE 89.1 mg/dL (74-106); POTASSIUM 4.54 mmol/L (3.5-5.1); SODIUM 137.1 mmol/L (134.5-145); TOTAL PROTEIN 7.28 g/dL (6.3-8.2)
--- NOTE | 2023-04-30 10:10 | DI ---
EXAM: CHEST RADIOGRAPH TECHNIQUE: Two views. Frontal and lateral. HISTORY: Cough. COMPARISON: Reviewed. FINDINGS: Unchanged scoliosis. New patchy left base opacities are nonspecific. The heart size is normal. There is no pleural effusion. There is no pneumothorax. IMPRESSION: As above.
[2023-04-30 10:17] LABS: MOLECULAR FLU A NEGATIVE BY NAAT (NEGATIVE); MOLECULAR FLU B NEGATIVE BY NAAT (NEGATIVE); SARS COV-2 RNA RAPID NAAT NEGATIVE (NEGATIVE)
[2023-04-30 10:20] LABS: TROPONIN I < 0.012 ng/ml (0.0000-0.120)
[2023-04-30] MEDS ORDERED: ROCEPHIN 1 GM/50 ML D5W 1 GM/50 ML BAG IV ONE (10:28)
[2023-04-30] MEDS ORDERED: DOXY-100 100 MG in SODIUM CHLORIDE 100ML 100 ML IV ONE (10:28)
[2023-04-30] MEDS ORDERED: SODIUM CHLORIDE 1,000 ML IV STA ×2 (10:28→11:30)
--- NOTE | 2023-04-30 10:51 | ED.PDOC ---
General ED Provider: Dr. GURINDER SANDERSON DO Chief Complaint: Shortness of Air Stated Complaint: Patient is a 52 yo F here for sob and cough Patient arrives tachycardic with stable BP Patient speaking in full sneteces on room air spo2 96% Patient reports she was put on mucinex and a z pack over a week ago and has not improved Patient smokes 5 cigarettes per day now Patient pleasant to speak with No falls or injuries No sick contacts Time Seen by Provider: 04/30/23 09:39 Information Source: Patient Primary Care Provider: TRISTAN HURT Nursing and Triage Documentation Reviewed and Agree: Yes Review of Systems Review Of Systems Constitutional: Denies Chills or Fever Eyes: Denies Blindness or Foreign body sensation Ears, Nose, Mouth, Throat: Denies Ear pain or Nose pain Respiratory: Reports Cough, Shortness of Breath and Wheezing; Denies Stridor Cardiac: Denies Chest pain, Palpitations or Syncope GI: Denies Abdominal pain, Constipated or Diarrhea : Denies Burning or Dysuria Musculoskeletal: Denies Back pain or Joint pain Skin: Denies Bruising or Rash Neurological: Denies Anxiety or Depressed Endocrine: Reports No symptoms Hematologic/Lymphatic: Reports No symptoms All Other Systems: Reviewed and Negative [facility] Medical History Arthritis M19.90 - Unspecified osteoarthritis, unspecified site (ICD-10) Asthma J45.909 - Unspecified asthma, uncomplicated (ICD-10) Chronic back pain M54.9 - Dorsalgia, unspecified (ICD-10) Chronic obstructive pulmonary disease J44.9 - Chronic obstructive pulmonary disease, unspecified (ICD-10) Generalized anxiety disorder (03/12/18) F41.1 - Generalized anxiety disorder (ICD-10) History of seasonal allergies Z88.9 - Allergy status to unspecified drugs, medicaments and biological substances status (ICD-10) Hypertension I10 - Essential (primary) hypertension (ICD-10) Osteoporosis M81.0 - Age-related osteoporosis without current pathological fracture (ICD- 10) Severe scoliosis M41.9 - Scoliosis, unspecified (ICD-10) Suicide attempt T14.91XA - Suicide attempt, initial encounter (ICD-10) Vitamin B12 deficiency E53.8 - Deficiency of other specified B group vitamins (ICD-10) Family History Grandfather/Grandmother COPD (chronic obstructive pulmonary disease) Asthma SISTER Cerebrovascular accident Mother Anxiety Social History Smoking and tobacco status: Current every day smoker Tobacco type: cigarettes Smoking cigarettes per day: 4 Tobacco: How many years used: 35 Quit status: considering quitting Second hand smoke exposure: Yes Smoking risk assessment performed: No Alcohol intake: current Alcohol intake frequency: holidays/special occasions only Counseling given: No Substance use type: does not use Counseling given: No Diamante/jehovah's witness: Mandaen Special diamante needs: No Agree to transfusion: Yes Adopted: No Caregiver/support person: Yes Foster care: No Household members: other Other Household Members: sister Housing: apartment Marital status: X LEGALLY Lives independently: Yes Number of children: 3 Number of grandchildren: 0 Highest education level completed: high school graduate Financial difficulty paying for basics: not applicable service: No shelter: No Current occupational status: unemployed Current occupation: applying for disability due to back pain Current occupational exposures/hazards: No Pets and animals: No Leisure activites: other History of recent travel: No Sexually active: No Do you think of yourself as: straight/heterosexual Current gender identity: female Seatbelt use: always Helmet use: No Drives intoxicated or rides with intoxicated after school driver: No Water heater temperature set < 120 degrees: Yes Working smoke detector in home: Yes Fire extinguisher in home: Yes Carbon monoxide detector in home: Yes Firearms in home: No Surgical History History of section Z98.891 - History of uterine scar from previous surgery (ICD-10) neck surgery Status post appendectomy Z90.49 - Acquired absence of other specified parts of digestive tract (ICD- 10) Female Reproductive History Menstrual Hx Hysterectomy: No Hx Tubal Ligation: Yes Physical Exam Physical Exam Appearance: Reports Well-appearing, Well-nourished and Obese Ill-appearing: Mild Pain Distress: Not Applicable Eyes: Reports ZACK, EOMI and Conjunctiva clear ENT: Reports Ears normal, Nose normal and Oropharynx normal Neck: Supple Respiratory: Reports Airway patent, Rhonchi and Wheezes; Denies Airway obstructed Cardiovascular: Reports Tachycardia; Denies Abnormal pulses GI/: Reports Soft, Nontender and Other (Central abdominal obesity) Musculoskeletal: Reports Normal strength and ROM intact Skin: Reports Warm and Dry Neurological: Reports Sensation intact and Motor intact Psychiatric: Reports Affect appropriate and Mood appropriate Interpretation EKG Interpretation EKG Interpretation By: ED Physician Time of EKG #1: 09:45 Interpretation: Sinus tachycardia rate 118, no stemi qt wnl Critical Care Note Critical Care Note Total Critical Care Time (mins): 0 Course Course 04/30/23 09:48 04/30/23 09:48 Orders, Labs, Meds: Lab Review 04/30/23 04/30/23 04/30/23 09:48 09:50 10:45 WBC 15.31 H RBC 4.64 Hgb 13.7 Hct 44.6 MCV 96.1 MCH 29.5 MCHC 30.7 L RDW Coeff of Jj 15.2 H Plt Count 312 Immature Gran % (Auto) 0.7 Neut % (Auto) 79.5 H Lymph % (Auto) 8.2 L [place] % (Auto) 9.9 Eos % (Auto) 1.2 Baso % (Auto) 0.5 Neut # (Auto) 12.2 H Lymph # (Auto) 1.3 [place] # (Auto) 1.5 Eos # (Auto) 0.2 Baso # (Auto) 0.1 Immature Gran # (Auto) 0.1 Sodium 137.1 Potassium 4.54 Chloride 105.2 Carbon Dioxide 27.3 Anion Gap 9.14 BUN 19.4 H Creatinine 0.89 Estimated GFR (MDRD) 66.00 BUN/Creatinine Ratio 21.79 Glucose 89.1 Lactic Acid 1.22 Calcium 9.32 Total Bilirubin 0.47 AST 25.6 ALT 28.5 Alkaline Phosphatase 104.6 Troponin I < 0.012 < 0.012 Total Protein 7.28 Albumin 4.19 Globulin 3.09 Albumin/Globulin Ratio 1.35 Influ A Molecular Assay Negative by naat Influ B Molecular Assay Negative by naat SARS CoV-2 RNA Rapid OBDULIO Negative Orders Category Date Time Status ADMIT OBSERVATION [PLACE PATIENT OBSERVATION] .TO ADMISSION 04/30/23 11:52 Active MEDSURG (MONITORED BED) EKG-(ED ONLY) Stat CARDIO 04/30/23 09:40 Completed NEBULIZER TREATMENT Routine CARDIO 04/30/23 11:20 Ordered NEBULIZER TREATMENT Stat CARDIO 04/30/23 11:20 Ordered NPO REMINDER: IMAGING ONCE CARE 04/30/23 10:29 Completed TELEMETRY MONITORING TELE CARE 04/30/23 11:52 Active BLOOD CULTURE Stat LAB 04/30/23 10:45 Received CBC W/ AUTO DIFF Stat LAB 04/30/23 09:48 Completed COMPREHENSIVE METABOLIC PANEL Stat LAB 04/30/23 09:48 Completed FLU A & B MOLECULAR [FLU A/B MOLECULAR] Stat LAB 04/30/23 09:50 Completed LACTIC ACID Stat LAB 04/30/23 09:48 Completed MRSA SCREEN Routine LAB 04/30/23 11:05 Received SARS COV-2 RNA RAPID OBDULIO Stat LAB 04/30/23 09:50 Completed TROPONIN I Stat LAB 04/30/23 09:48 Completed TROPONIN I Stat LAB 04/30/23 10:45 Completed Albuterol Sulfate 0.083% Neb [Albuterol 0.083% Neb] Meds 04/30/23 11:20 Discontinued 7.5 mg NEB ONCE ONE Budesonide [Pulmicort 0.25 mg/2 ml] Meds 04/30/23 09:39 Discontinued 0.25 mg NEB ONCE ONE Ceftriaxone/D5w 1 gm Premix [Rocephin 1 gm/50 ml D5w] Meds 04/30/23 10:28 Discontinued 1 gm in 50 ml IV ONCE Doxycycline Hyclate Inj [Doxy-100] 100 mg Meds 04/30/23 10:28 Active 0.9 % Sodium Chloride [Sodium Chloride 100Ml] 100 ml IV ONCE Ipratropium/Albuterol Neb [Duoneb] Meds 04/30/23 09:39 Discontinued 3 ml NEB ONCE ONE Methylprednisolone Sod Succ/Pf [Solu-Medrol 125 mg] Meds 04/30/23 09:39 Discontinued 125 mg IVP ONCE ONE Sodium Chloride 0.9% [Sodium Chloride] 1,000 ml Meds 04/30/23 10:28 Discontinued IV BOLUS Sodium Chloride 0.9% [Sodium Chloride] 1,000 ml Meds 04/30/23 11:[address] CHEST PE PROTOCOL Stat RADS 04/30/23 10:29 Completed CXR [CHEST, 2 VIEWS PA & LAT] Stat RADS 04/30/23 09:39 Completed Medications Generic Name Dose Route Start Last Admin Trade Name Freq PRN Reason Stop Dose Admin Doxycycline Hyclate 100 mg/ 100 mls @ 50 mls/hr 04/30/23 10:28 04/30/23 11:52 Sodium Chloride IV 04/30/23 12:27 50 mls/hr ONCE ONE Administration Sodium Chloride 1,000 mls @ 1,000 mls/hr 04/30/23 11:30 Sodium Chloride IV 04/30/23 12:29 BOLUS STA Discontinued Medications Generic Name Dose Route Start Last Admin Trade Name Brandon PRN Reason Stop Dose Admin Albuterol Sulfate 7.5 mg 04/30/23 11:20 Albuterol Sulfate 0.083% Vial.[facility] 04/30/23 11:21 ONCE ONE Albuterol/Ipratropium 3 ml 04/30/23 09:39 04/30/23 10:06 Ipratropium/Albuterol Vial.[facility] 04/30/23 09:40 3 ml ONCE ONE Administration Budesonide 0.25 mg 04/30/23 09:39 04/30/23 10:13 Budesonide 0.25 Mg/2 Ml Vial.[facility] 04/30/23 09:40 0.25 mg ONCE ONE Administration Sodium Chloride 1,000 mls @ 1,000 mls/hr 04/30/23 10:28 04/30/23 10:58 Sodium Chloride IV 04/30/23 11:27 1,000 mls/hr BOLUS STA Administration CEFTRIAXONE/D5W 1 GM PREMIX 1 gm in 50 mls @ 100 mls/hr 04/30/23 10:28 04/30/23 10:59 Rocephin 1 Gm/50 Ml D5w IV 04/30/23 10:57 100 mls/hr ONCE ONE Administration Methylprednisolone Sodium Succinate 125 mg 04/30/23 09:39 04/30/23 10:12 Methylprednisolone Sod Succ/Pf 125 Mg/2 Ml Vial IVP 04/30/23 09:40 125 mg ONCE ONE Administration Vital Signs: Temp Pulse Resp BP Pulse Ox O2 Flow Rate 04/30/23 09:52 2 04/30/23 09:30 99.9 F 124 H 18 110/54 L 96 Patient meets sirs criteria, gentle fluids given due to sob, blood cultures and abx Rocephin and doxy given, pending repeat trop and CT PE then admission for sepsis pneumonia based on CXR with L lower lobe lesion and z pack failure MDM: Patient is a 52 yo F here for cough and SOB patient afebrile and vitally stable Hx from patient chart review by me Exam reassuring Meets sepsis criteria for leukocytosis and tachycardia Sepsis fluids given slowly/gentle due to SOB 3+ labs and 3 images reviewed by me Patient improved with steroids, nebs and abx Consult Hospitalist ELECTRIC BATH ATTENDANT We agree on admission patient amenable to plan WDX: Pneumonia, sepsis, cough, discomfort acute moderate complexity DDX: I considered PE, Stemi, shock but these were not found Patient stable for obs/admit Discharge Plan Discharge Patient Disposition: PLACED OBSERVATION Discharge Problem: Pneumonia, Cough, Tobacco use, Sepsis Did you review [place] [employer] for ALL controlled substances?: Not Applicable ED Provider: GURINDER SANDERSON Condition: Stable Physician Progress Note: []
[2023-04-30] MEDS ORDERED: ALBUTEROL 0.083% NEB NEB ONE (11:20)
--- NOTE | 2023-04-30 11:37 | CT ---
EXAM: CHEST CTA WITH CONTRAST (PULMONARY ARTERY) HISTORY: Cough, chest pain, and tachycardia. TECHNIQUE: CTA acquisition of the chest from the thoracic inlet to the upper abdomen following IV con trast administration timed to filling of the pulmonary artery. 3D/MIP/VR images were utilized. CT Dose Reduction Techniques Employed: Yes. COMPARISON: 10/18/2022 FINDINGS: Adequate opacification of the pulmonary arteries. No pulmonary embolus is identified. No enlarged m ediastinal, hilar, or axillary nodes are identified. Borderline cardiomegaly, stable. No significan t pericardial fluid/thickening. Trace dependent left pleural fluid, stable. No right pleural fluid. Visualized portions of the upper abdomen included in this examination of the chest again show to 0.4 cm cyst of the partially visualized right kidney. Patient is status post cholecystectomy, as before. Lung window images show hypoventilation. Suggestion of mild emphysema. Debris in several segmental and subsegmental bronchi with bronchial wall thickening of both lower lobes. Mild dependent atelecta sis of the left lower lobe. Several small scattered regions of subsegmental atelectasis of both mid and lower lungs. Bone window images show no significant lytic or sclerotic bone lesions. 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 Stable chronic L2 compression fractures status post kyphopl asty. IMPRESSION: 1. No pulmonary embolus is identified. 2. Debris in several segmental and subsegmental bronchi with bronchial wall thickening of both lower lobes, suggesting bronchitis. Consider aspiration. 3. Several small regions of subsegmental atelectasis of both mid and lower lungs. Pneumonia cannot be excluded. All CT scans are performed using dose optimization techniques as appropriate to the performed exam an d include at least one of the following: Automated exposure control, adjustment of the mA and/or kV according t o size, and the use of iterative reconstruction technique.
[2023-04-30 13:08] VITALS: BMI 29.8
[2023-04-30] MEDS ORDERED: ALBUTEROL 0.083% NEB NEB PRN (13:17)
[2023-04-30] MEDS ORDERED: TYLENOL PO PRN (13:22)
--- NOTE | 2023-04-30 13:24 | PCM ---
Date of Service Date Seen by Provider: 04/30/23 Time Seen by Provider: 13:10 Admit Day/Time Admission Date: 04/30/23 Admission Time: 11:50 Reason for Admission Chief Complaint: SEPSIS Hospital Provider Hospital Provider: SANJUANA REBOLLAR, [facility] Phys[place] Primary Care Physician: TRISTAN HURT History of Present Illness History of Present Illness: 52 yo female presented to the ER with complaints of SOB. Patient states that she saw her PCP approximately 1 week ago and was diagnosed with pneumonia. She was prescribed a Z arti, medrol dose pack, and mucinex. Completed all medications and has continued to feel bad. States that she has continued to be short of breath and has a nonproductive cough. Has been using her nebulizers and inhalers at home as prescribed. Denies fever, chills, chest pain, N/V/D. Does report rib tenderness from coughing. Case Discussed With Case Discussed With: Patient's case was discussed with the ER Physicians, Dr. Ritchie. [facility] Medical History Vitamin B12 deficiency E53.8 - Deficiency of other specified B group vitamins (ICD-10) Osteoporosis M81.0 - Age-related osteoporosis without current pathological fracture (ICD- 10) Severe scoliosis 58 degrees M41.9 - Scoliosis, unspecified (ICD-10) Chronic back pain M54.9 - Dorsalgia, unspecified (ICD-10) Generalized anxiety disorder (03/12/18) F41.1 - Generalized anxiety disorder (ICD-10) Asthma J45.909 - Unspecified asthma, uncomplicated (ICD-10) Hypertension I10 - Essential (primary) hypertension (ICD-10) Chronic obstructive pulmonary disease J44.9 - Chronic obstructive pulmonary disease, unspecified (ICD-10) Suicide attempt T14.91XA - Suicide attempt, initial encounter (ICD-10) Arthritis Back M19.90 - Unspecified osteoarthritis, unspecified site (ICD-10) History of seasonal allergies Z88.9 - Allergy status to unspecified drugs, medicaments and biological substances status (ICD-10) Surgical History neck surgery 2001 History of section Z98.891 - History of uterine scar from previous surgery (ICD-10) Status post appendectomy Z90.49 - Acquired absence of other specified parts of digestive tract (ICD- 10) Family History Grandfather/Grandmother COPD (chronic obstructive pulmonary disease) Asthma SISTER Cerebrovascular accident Mother Anxiety Social History Smoking and tobacco status: Current every day smoker Tobacco type: cigarettes Smoking cigarettes per day: 4 Tobacco: How many years used: 35 Quit status: considering quitting Second hand smoke exposure: Yes Smoking risk assessment performed: No Alcohol intake: current Alcohol intake frequency: holidays/special occasions only Counseling given: No Substance use type: does not use Counseling given: No Diamante/congregation: [employer] Special diamante needs: No Agree to transfusion: Yes Adopted: No Caregiver/support person: Yes Foster care: No Household members: other Other Household Members: sister Housing: apartment Marital status: X LEGALLY Lives independently: Yes Number of children: 3 Number of grandchildren: 0 Highest education level completed: high school graduate Financial difficulty paying for basics: not applicable service: No jail: No Current occupational status: unemployed Current occupation: applying for disability due to back pain Current occupational exposures/hazards: No Pets and animals: No Leisure activites: other History of recent travel: No Sexually active: No Do you think of yourself as: straight/heterosexual Current gender identity: female Seatbelt use: always Helmet use: No Drives intoxicated or rides with intoxicated driver sales: No Water heater temperature set < 120 degrees: Yes Working smoke detector in home: Yes Fire extinguisher in home: Yes Carbon monoxide detector in home: Yes Firearms in home: No Allergies Allergies Allergy/AdvReac Type Severity Reaction Status Date / Time Penicillins AdvReac Severe Rash Verified 04/30/23 09:44 Current Medications Home Medications blood pressure monitor (Blood Pressure Kit) #1 ea 10/20/21 [Rx Confirmed 04/30/23 Last Taken Unknown] blood pressure monitor #1 ea 12/06/21 [Rx Confirmed 04/30/23 Last Taken Unknown] hydrocodone 7.5 mg-acetaminophen 325 mg tablet 1 tab PO BID PRN Analgesia 12/07/21 [History Confirmed 04/30/23 Last Taken 04/29/23 17:30 1 tab] buspirone 15 mg tablet 15 mg PO TID #90 tabs 02/13/22 [Rx Confirmed 04/30/23 Last Taken 04/30/23 07:30 15 mg] albuterol sulfate 90 mcg/actuation aerosol inhaler (ProAir HFA) 2 puff inhalation Q4-6H PRN shortness of breath or wheezing #8.5 grams 03/08/22 [Rx Confirmed 04/30/23 Last Taken 04/30/23 13:18 2 puff] amitriptyline 25 mg tablet 25 mg PO QHS #30 tabs 03/08/22 [Rx Confirmed 04/30/23 Last Taken 04/29/23 21:00 25 mg] budesonide-formoterol HFA 160 mcg-4.5 mcg/actuation aerosol inhaler (Symbicort) See Rx Instructions .Route .COMPLEX #10.2 blisters 03/08/22 [Rx Confirmed 04/30/23 Last Taken 04/30/23 06:30] lisinopril 40 mg tablet 40 mg PO QDAY #30 tabs 03/08/22 [Rx Confirmed 04/30/23 Last Taken 04/30/23 08:00] tiotropium bromide 18 mcg capsule with inhalation device (Spiriva with HandiHaler) See Rx Instructions .Route .COMPLEX #30 blisters 04/06/22 [Rx Confirmed 04/30/23 Last Taken 04/30/23 06:30] pantoprazole 40 mg tablet,delayed release See Rx Instructions .Route .COMPLEX #30 tabs 05/04/22 [Rx Confirmed 04/30/23 Last Taken 04/30/23 06:30 40] alendronate 70 mg tablet 70 mg PO WEEKLY 10/17/22 [History Confirmed 04/30/23 Last Taken 04/30/23 08:00 70 mg] calcium 600 mg capsule 600 mg PO DAILY 10/17/22 [History Confirmed 04/30/23 Last Taken 04/29/23 08:00 600 mg] clonidine HCl 0.1 mg tablet 0.1 mg PO BID PRN hypertensive emergency 10/17/22 [H istory Confirmed 04/30/23 Last Taken Unknown] ergocalciferol (vitamin D2) 1,250 mcg (50,000 unit) capsule 50,000 unit PO WEEKLY 10/17/22 [History Confirmed 04/30/23 Last Taken 04/23/23 08:00 50,000 un it] fluoxetine 40 mg capsule (Prozac) 20 mg PO QAM 10/17/22 [History Confirmed 04/30/23 Last Taken 04/30/23 08:00 20 mg] meloxicam 15 mg tablet 15 mg PO DAILY 10/17/22 [History Confirmed 04/30/23 Last Taken 04/30/23 08:00 15 mg] gabapentin 400 mg capsule 400 mg PO QID pain 12/10/22 [History Confirmed 04/30/23 Last Taken 04/30/23 08:00 400 mg] albuterol sulfate 2.5 mg/3 mL (0.083 %) solution for nebulization 2.5 mg inhalation .Q12 PRN shortness of breath or wheezing 04/30/23 [History Confirmed 04/30/23 Last Taken 04/30/23 06:30 2.5 mg] amlodipine 2.5 mg tablet 2.5 mg PO DAILY PRN blood pressure [id number] systolic 04/30/23 [History Confirmed 04/30/23 Last Taken Unknown] cyclobenzaprine 5 mg tablet 2.5 mg PO TID 04/30/23 [History Confirmed 04/30/23 Last Taken 04/30/23 08:00 2.5 mg] meclizine 25 mg chewable tablet 25 mg PO BID PRN dizziness 04/30/23 [History Confirmed 04/30/23 Last Taken 04/30/23 08:00 25 mg] Home Acetaminophen (Acetaminophen 325 Mg Tablet) 650 mg PO Q4H PRN PRN Reason: Mild Pain Hydrocodone Bitart/Acetaminophen (Hydrocodone Bit/Acetaminophen 7.5/325 Mg Tablet) 1 tab PO BID PRN PRN Reason: Pain Last Admin: 04/30/23 16:09 Dose: 1 tab Albuterol Sulfate (Albuterol Sulfate 0.083% Vial.Neb) 2.5 mg NEB RTQ4H PRN PRN Reason: Wheezing Albuterol/Ipratropium (Ipratropium/Albuterol Vial.Neb) 3 ml NEB RTQ4H HERMINIO Last Admin: 05/01/23 04:55 Dose: 3 ml Amitriptyline HCl (Amitriptyline Hcl 25 Mg Tablet) 25 mg PO BEDTIME HERMINIO Last Admin: 04/30/23 20:09 Dose: 25 mg Amlodipine Besylate (Amlodipine Besylate 5 Mg Tablet) 2.5 mg PO DAILY PRN PRN Reason: Hypertension Budesonide/Formoterol Fumarate (Budesonide/Formoterol Fumarate 160/4.5 Mcg Inhaler) 2 puff IH BID [facility] Last Admin: 05/01/23 08:24 Dose: 2 puff Buspirone HCl (Buspirone Hcl 10 Mg Tablet) 15 mg PO TID [facility] Last Admin: 05/01/23 08:17 Dose: 15 mg Calcium/Vitamin D (Calcium Carbonate/Vitamin D3 500 Mg/5 Mcg(200iu) 1 Each Tablet) 1 each PO DAILY [facility] Last Admin: 05/01/23 08:16 Dose: 1 each Clonidine (Clonidine Hcl 0.1 Mg Tablet) 0.1 mg PO BID PRN PRN Reason: Hypertension Cyclobenzaprine HCl (Cyclobenzaprine Hcl 10 Mg Tablet) 2.5 mg PO TID [facility] Last Admin: 05/01/23 08:16 Dose: 2.5 mg Fluoxetine HCl (Fluoxetine Hcl 20 Mg Capsule) 20 mg PO QAM [facility] Last Admin: 05/01/23 08:15 Dose: 20 mg Gabapentin (Gabapentin 300 Mg Capsule) 300 mg PO QID [facility] Last Admin: 05/01/23 08:16 Dose: 300 mg Gabapentin (Gabapentin 100 Mg Capsule) 100 mg PO QID [facility] Last Admin: 05/01/23 08:16 Dose: 100 mg Guaifenesin/Dextromethorphan (Guaifenesin/Dextromethorphan 200/20 Mg/10 Ml Cup) 10 ml PO Q4H PRN PRN Reason: Cough Last Admin: 04/30/23 15:47 Dose: 10 ml CEFTRIAXONE/D5W 1 GM PREMIX (Rocephin 1 Gm/50 Ml D5w) 1 gm in 50 mls @ 100 mls/hr IV DAILY [facility] Stop: 05/04/23 08:59 Last Admin: 05/01/23 08:15 Dose: 100 mls/hr Doxycycline Hyclate 100 mg/ (Sodium Chloride) 100 mls @ 50 mls/hr IV Q12HR [facility] Stop: 05/03/23 20:59 Last Admin: 05/01/23 09:25 Dose: 50 mls/hr Sodium Chloride (Sodium Chloride) 1,000 mls @ 100 mls/hr IV .Q10H [facility] Last Admin: 05/01/23 05:15 Dose: 100 mls/hr Lisinopril (Lisinopril 40 Mg Tablet) 40 mg PO DAILY [facility] Last Admin: 05/01/23 08:15 Dose: 40 mg Meclizine HCl (Meclizine Hcl 25 Mg Tablet) 25 mg PO BID PRN PRN Reason: Dizziness Meloxicam (Meloxicam 7.5 Mg Tablet) 15 mg PO DAILYWM2 [facility] Last Admin: 05/01/23 07:53 Dose: 15 mg Methylprednisolone Sodium Succinate (Methylprednisolone Sod Succ/Pf 40 Mg/Ml Vial) 40 mg IVP Q8HR [facility] Last Admin: 05/01/23 05:46 Dose: 40 mg Pantoprazole Sodium (Pantoprazole Sodium 40 Mg Tablet.Dr) 40 mg PO QDAC2 [facility] Last Admin: 05/01/23 05:17 Dose: 40 mg Tiotropium [place] (Tiotropium [place] 18 Mcg Cap.W.Dev) 1 cap IH DAILY [facility] Last Admin: 05/01/23 08:24 Dose: 1 cap Discontinued Medications Albuterol Sulfate (Albuterol Sulfate 0.083% Vial.Neb) 7.5 mg NEB ONCE ONE Stop: 04/30/23 11:21 Last Admin: 04/30/23 11:30 Dose: 7.5 mg Albuterol/Ipratropium (Ipratropium/Albuterol Vial.Neb) 3 ml NEB ONCE ONE Stop: 04/30/23 09:40 Last Admin: 04/30/23 10:06 Dose: 3 ml Budesonide (Budesonide 0.25 Mg/2 Ml Vial.Neb) 0.25 mg NEB ONCE ONE Stop: 04/30/23 09:40 Last Admin: 04/30/23 10:13 Dose: 0.25 mg Sodium Chloride (Sodium Chloride) 1,000 mls @ 1,000 mls/hr IV BOLUS STA Stop: 04/30/23 11:27 Last Infusion: 04/30/23 12:04 Dose: Infused CEFTRIAXONE/D5W 1 GM PREMIX (Rocephin 1 Gm/50 Ml D5w) 1 gm in 50 mls @ 100 mls/hr IV ONCE ONE Stop: 04/30/23 10:57 Last Admin: 04/30/23 10:59 Dose: 100 mls/hr Doxycycline Hyclate 100 mg/ (Sodium Chloride) 100 mls @ 50 mls/hr IV ONCE ONE Stop: 04/30/23 12:27 Last Admin: 04/30/23 11:30 Dose: 50 mls/hr Sodium Chloride (Sodium Chloride) 1,000 mls @ 1,000 mls/hr IV BOLUS STA Stop: 04/30/23 12:29 Last Infusion: 04/30/23 14:34 Dose: Infused Methylprednisolone Sodium Succinate (Methylprednisolone Sod Succ/Pf 125 Mg/2 Ml Vial) 125 mg IVP ONCE ONE Stop: 04/30/23 09:40 Last Admin: 04/30/23 10:12 Dose: 125 mg Non-Formulary Medication (Gabapentin) 400 mg PO QID HERMINIO Review of Systems Constitutional: Reports No symptoms Head: Reports Normocephalic Eyes: Reports No symptoms Ears: Reports No symptoms Nose: Reports No symptoms Mouth: Reports No symptoms Throat: Reports No symptoms Cardiovascular: Reports No symptoms Respiratory: Reports Cough (nonproductive) and Shortness of air Gastrointestinal: Reports No symptoms Genitourinary: Reports No Symptoms Musculoskeletal: Reports No symptoms Dermatologic: Reports Other Endocrine: Reports No symptoms Hematology: Reports No symptoms Immunology: Reports No symptoms Neurological: Reports No symptoms Psychiatric: Reports No symptoms Physical examination Most Recent Vital Signs: Most Recent Vital Signs Temperature 97.4 F L 04/30/23 12:44 Temperature Source Temporal Artery Scan 04/30/23 12:44 Temperature Source Oral 04/30/23 09:30 Pulse Rate 107 H 04/30/23 12:44 Respiratory Rate 20 04/30/23 12:44 Blood Pressure 110/54 L 04/30/23 09:30 Blood Pressure Left Arm 127/84 04/30/23 12:44 Blood Pressure Position Sitting 04/30/23 12:44 O2 Sat by Pulse Oximetry 95 04/30/23 12:44 Oxygen Delivery Method Nasal Cannula 04/30/23 13:00 Oxygen Flow Rate 2 04/30/23 12:44 Height 5 ft 2 in 04/30/23 12:44 Weight 163 lb 3 oz 04/30/23 12:44 Telemetry Type Remote Telemetry 04/30/23 13:00 Telemetry Monitoring Started 04/30/23 13:00 Telemetry Heart Rate 106 H 04/30/23 13:00 Telemetry SPO2 97 04/30/23 13:00 EKG GA Interval 0.15 04/30/23 13:00 EKG QRS Interval 0.09 04/30/23 13:[address] 04/30/23 13:00 Appearance: Positive No Apparent Distress, Alert and Oriented x3, Ill-Appearing and Obese Skin: Positive Warm HEENT: Positive Normocephalic and PERRLA Neck: Positive Supple and Midline Trachea Chest/Lungs: Positive Symmetrical With Equal Breath Sounds, Rhonci (right lower lobe) and Wheezes (expiratory throughout all lung silva) Heart: Positive RRR and Pulses Normal GI/: Positive Soft, Nontender, Bowel Sounds Normal and No Distention Musculoskeletal: Positive Not Examined Extremities: Positive Intact Peripheral Pulses, Stable Joints Without Laxity and Good ROM in All Joints Neurological: Positive Sensation Intact, Motor intact, Reflexes Intact, Alert and Oriented Psychiatric: Positive Oriented x4, Appropriate Mood and Appropriate Affect Labs This Visit Labs This Visit: Labs This Visit 04/30/23 04/30/23 04/30/23 09:48 09:50 10:45 WBC 15.31 H RBC 4.64 Hgb 13.7 Hct 44.6 MCV 96.1 MCH 29.5 MCHC 30.7 L RDW Coeff of Jj 15.2 H Plt Count 312 Immature Gran % (Auto) 0.7 Neut % (Auto) 79.5 H Lymph % (Auto) 8.2 L [place] % (Auto) 9.9 Eos % (Auto) 1.2 Baso % (Auto) 0.5 Neut # (Auto) 12.2 H Lymph # (Auto) 1.3 [place] # (Auto) 1.5 Eos # (Auto) 0.2 Baso # (Auto) 0.1 Immature Gran # (Auto) 0.1 Sodium 137.1 Potassium 4.54 Chloride 105.2 Carbon Dioxide 27.3 Anion Gap 9.14 BUN 19.4 H Creatinine 0.89 Estimated GFR (MDRD) 66.00 BUN/Creatinine Ratio 21.79 Glucose 89.1 Lactic Acid 1.22 Calcium 9.32 Total Bilirubin 0.47 AST 25.6 ALT 28.5 Alkaline Phosphatase 104.6 Troponin I < 0.012 < 0.012 Total Protein 7.28 Albumin 4.19 Globulin 3.09 Albumin/Globulin Ratio 1.35 Influ A Molecular Assay Negative by naat Influ B Molecular Assay Negative by naat SARS CoV-2 RNA Rapid OBDULIO Negative Imaging Imaging: EXAM: CHEST CTA WITH CONTRAST (PULMONARY ARTERY COMPARISON: 10/18/2022 FINDINGS: Adequate opacification of the pulmonary arteries. No pulmonary embolus is identified. No enlarged mediastinal, hilar, or axillary nodes are identified. Borderline cardiomegaly, stable. No significant pericardial fluid/thickening. Trace dependent left pleural fluid, stable. No right pleural fluid. Visualized portions of the upper abdomen included in this examination of the chest again show to 0.4 cm cyst of the partially visualized right kidney. Patient is status post cholecystectomy, as before. Lung window images show hypoventilation. Suggestion of mild emphysema. Debris in several segmental and subsegmental bronchi with bronchial wall thickening of both lower lobes. Mild dependent atelectasis of the left lower lobe. Several small scattered regions of subsegmental atelectasis of both mid and lower lungs. Bone window images show no significant lytic or sclerotic bone lesions. 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 Stable chronic L2 compression fractures status post kyphoplasty. IMPRESSION: 1. No pulmonary embolus is identified. 2. Debris in several segmental and subsegmental bronchi with bronchial wall thickening of both lower lobes, suggesting bronchitis. Consider aspiration. 3. Several small regions of subsegmental atelectasis of both mid and lower lungs. Pneumonia cannot be excluded EXAM: CHEST RADIOGRAPH FINDINGS: Unchanged scoliosis. New patchy left base opacities are nonspecific. The heart size is normal. There is no pleural effusion. There is no pneumothorax. IMPRESSION: As above.. Review Statement Review Statement: I have independently reviewed and interpreted the labs/EKGs/imaging that were ordered by the ER provider. I have reviewed all outside records that are available currently in our EMR including imaging/notes/labs from previous visits. Plan Plan: 1. Sepsis in setting of Community-Acquired Pneumonia - blood cultures pending, sputum culture, legionella, and strep pneumo ordered, received 2L NS in ER, rocephin and doxycycline for abx 2. Community-Acquired Pneumonia - rocephin and doxy, steroids, nebs 3. COPD - chronic, appears at baseline, plan as above, Rt following 4. Hypertension - chronic, continue home medications 5. GERD - chronic, continue home medications DVT Prophylaxis: Up with assistance Time Spent: Greater than 80 minutes spent with patient, 50% of the time spent with this patient was devoted to counseling and coordination of care. [facility] minutes spent discussing advance care planning. Disposition: Admit to: Med/surg Inpatient Full Code Discussed Plan of Care with Dr. William Sousa Medications Medication Orders: Medications Ordered Category Date Time Status Acetaminophen [Tylenol] Meds 04/30/23 13:22 Ordered 650 mg PO Q4H PRN Albuterol Sulfate 0.083% Neb [Albuterol 0.083% Neb] Meds 04/30/23 13:17 Ordered 2.5 mg NEB RTQ4H PRN Ceftriaxone/D5w 1 gm Premix [Rocephin 1 gm/50 ml D5w] Meds 05/01/23 09:00 Ordered 1 gm in 50 ml IV DAILY Doxycycline Hyclate Inj [Doxy-100] 100 mg Meds 04/30/23 21:00 Ordered 0.9 % Sodium Chloride [Sodium Chloride 100Ml] 100 ml IV Q12HR Ipratropium/Albuterol Neb [Duoneb] Meds 04/30/23 14:00 Ordered 3 ml NEB RTQ4H Methylprednisolone Sod Succ/Pf [Solu-Medrol 40 mg] Meds 04/30/23 21:00 Ordered 40 mg IVP Q8HR
[2023-04-30] MEDS: DUONEB NEB SCH ×3 (14:00→22:36)
[2023-04-30] MEDS ORDERED: ROBITUSSIN DM SYRUP PO PRN (14:19)
[2023-04-30] MEDS ORDERED: ANTIVERT PO PRN (15:41)
[2023-04-30] MEDS ORDERED: NORVASC PO PRN (15:41)
[2023-04-30] MEDS ORDERED: CATAPRES PO PRN (15:41)
[2023-04-30] MEDS: SODIUM CHLORIDE 1,000 ML IV SCH (15:50)
[2023-04-30] MEDS: NORCO 7.5-325 PO PRN (16:09)
[2023-04-30] MEDS: NEURONTIN PO SCH ×4 (16:09→20:08)
[2023-04-30] MEDS ORDERED: NON-FORMULARY MEDICATION (Gabapentin 400 mg capsule) PO SCH (17:00)
[2023-04-30] MEDS: SYMBICORT 160-4.5 MCG INHALER IH SCH (20:07)
[2023-04-30] MEDS: FLEXERIL PO SCH (20:09)
[2023-04-30] MEDS: BUSPAR PO SCH (20:09)
[2023-04-30] MEDS: SOLU-MEDROL 40 MG IVP SCH (20:09)
[2023-04-30] MEDS: ELAVIL PO SCH (20:09)
[2023-04-30] MEDS: DOXY-100 100 MG in SODIUM CHLORIDE 100ML 100 ML IV SCH (20:12)
[2023-05-01] MEDS: DUONEB NEB SCH ×6 (01:45→22:12)
[2023-05-01] MEDS: SODIUM CHLORIDE 1,000 ML IV SCH ×2 (05:15→18:31)
[2023-05-01] MEDS: PROTONIX PO SCH (05:17)
[2023-05-01 05:25] LABS: BASOPHILS % (AUTO) 0.1 % (0.0-3.0); HEMATOCRIT 37.6 % (37.0-47.0); HEMOGLOBIN 11.6 g/dl (12.0-16.0); IMMATURE GRANULOCYTE # (AUTO) 0.1 (0.0-1.0); IMMATURE GRANULOCYTE % (AUTO) 0.7 % (0.0-5.0); LYMPHOCYTES # (AUTO) 0.5 K/uL (0.60-3.4); LYMPHOCYTES % (AUTO) 3.9 (10.0-50.0); MEAN CORPUSCULAR HEMOGLOBIN 30.1 pg (27.0-31.0); MEAN CORPUSCULAR HGB CONC 30.9 (31.8-35.4); MEAN CORPUSCULAR VOLUME 97.4 fl (81.0-99.0); MONOCYTES # (AUTO) 0.4 K/uL (0.4-2.0); MONOCYTES % (AUTO) 2.6 (0-10); NEUTROPHILS # (AUTO) 12.7 K/ul (2.0-6.9); NEUTROPHILS % (AUTO) 92.7 % (42.2-75.2); PLATELET COUNT 250 10^3/uL (140-440); RDW COEFFICIENT OF VARIATION 15.2 % (11.6-14.8); RED BLOOD COUNT 3.86 10^6/ul (4.20-5.40)
[2023-05-01 05:37] LABS: ALANINE AMINOTRANSFERASE 28.1 U/L (0-35); ALBUMIN 3.65 g/dL (3.5-5.0); ALKALINE PHOSPHATASE 80.3 U/L (38-126); BILIRUBIN,TOTAL 0.14 mg/dL (0.2-1.3); BLOOD UREA NITROGEN 15.5 mg/dL (7-17); CALCIUM 8.23 mg/dL (8.4-10.2); CARBON DIOXIDE 25.4 mmol/L (22-30.0); CHLORIDE 109.5 mmol/L (98-107); CREATININE 0.66 mg/dL (0.60-1.30); GLUCOSE 164.9 mg/dL (74-106); POTASSIUM 4.52 mmol/L (3.5-5.1); SODIUM 137.4 mmol/L (134.5-145); TOTAL PROTEIN 6.3 g/dL (6.3-8.2)
[2023-05-01] MEDS: SOLU-MEDROL 40 MG IVP SCH ×3 (05:46→20:49)
[2023-05-01] MEDS: MOBIC PO SCH (07:53)
[2023-05-01] MEDS: ZESTRIL PO SCH (08:15)
[2023-05-01] MEDS: PROZAC PO SCH (08:15)
[2023-05-01] MEDS: ROCEPHIN 1 GM/50 ML D5W 1 GM/50 ML BAG IV SCH (08:15)
[2023-05-01] MEDS: FLEXERIL PO SCH ×3 (08:16→20:35)
[2023-05-01] MEDS: NEURONTIN PO SCH ×8 (08:16→20:35)
[2023-05-01] MEDS: CALCIUM 500 + VIT D 5 MCG (200 IU) TABLET PO SCH (08:16)
[2023-05-01] MEDS: BUSPAR PO SCH ×3 (08:17→20:36)
[2023-05-01] MEDS: SYMBICORT 160-4.5 MCG INHALER IH SCH ×2 (08:24→20:37)
[2023-05-01] MEDS: SPIRIVA IH SCH (08:24)
[2023-05-01] MEDS: DOXY-100 100 MG in SODIUM CHLORIDE 100ML 100 ML IV SCH ×2 (09:25→20:37)
--- NOTE | 2023-05-01 09:37 | PCM.PROG ---
Date/Time Seen Date Seen by Provider: 05/01/23 Time Seen by Provider: 09:00 Provider [facility] Chief Complaint Chief Complaint: SEPSIS Subjective Subjective: Feeling about the same today. Still has nonproductive cough. Experiencing significant exertional dyspnea. Objective Appearance: Positive No Apparent Distress, Alert and Oriented x3 and Ill- Appearing Chest/Lungs: Positive Symmetrical With Equal Breath Sounds, Wheezes (inspiratory and expiratory throughout lung silva) and Good Air Movement all 4 Lung Silva Heart: Positive RRR and Pulses Normal GI/: Positive Soft, Nontender, Bowel Sounds Normal and No Distention Musculoskeletal: Positive Not Examined Neurological: Positive Sensation Intact, Motor intact, Reflexes Intact, Alert, Oriented and Muscle Strength 5/5 in Upper and Lower Extremities Bilaterally Vital Signs Vital Signs: Vital Signs: Last 24 Hours 04/30/23 09:52 04/30/23 12:44 04/30/23 12:44 Temperature 97.4 F L Temperature Source Temporal Artery Scan Pulse Rate 107 H Pulse Rate [Apical] Respiratory Rate 20 20 Blood Pressure Blood Pressure Mean Blood Pressure Left Arm 127/84 Blood Pressure Location Blood Pressure Position Sitting O2 Sat by Pulse Oximetry 95 Oxygen Delivery Method Nasal Cannula Nasal Cannula Oxygen Flow Rate 2 2 2 Height 5 ft 2 in Weight 163 lb 3 oz Telemetry Type Telemetry Monitoring Telemetry Heart Rate Telemetry SPO2 EKG NV Interval EKG QRS Interval Telemetry Strip Reading 04/30/23 13:00 04/30/23 13:00 04/30/23 13:27 Temperature Temperature Source Pulse Rate Pulse Rate [Apical] Respiratory Rate Blood Pressure Blood Pressure Mean Blood Pressure Left Arm Blood Pressure Location Blood Pressure Position O2 Sat by Pulse Oximetry Oxygen Delivery Method Nasal Cannula Oxygen Flow Rate Height Weight Telemetry Type Remote Telemetry Remote Telemetry Telemetry Monitoring Started Started Telemetry Heart Rate 106 H 106 H Telemetry SPO2 97 EKG NV Interval 0.15 0.18 EKG QRS Interval 0.09 0.13 H Telemetry Strip Reading ST ST with BBB 04/30/23 14:00 04/30/23 14:00 04/30/23 14:00 Temperature 97.4 F L Temperature Source Temporal Artery Scan Pulse Rate 107 H Pulse Rate [Apical] Respiratory Rate 20 Blood Pressure 127/84 Blood Pressure Mean 98 Blood Pressure Left Arm Blood Pressure Location Left Arm Blood Pressure Position O2 Sat by Pulse Oximetry 95 Oxygen Delivery Method Nasal Cannula Nasal Cannula Nasal Cannula Oxygen Flow Rate Height Weight Telemetry Type Telemetry Monitoring Telemetry Heart Rate Telemetry SPO2 EKG NV Interval EKG QRS Interval Telemetry Strip Reading 04/30/23 15:00 04/30/23 16:00 04/30/23 16:00 Temperature Temperature Source Pulse Rate Pulse Rate [Apical] Respiratory Rate Blood Pressure Blood Pressure Mean Blood Pressure Left Arm Blood Pressure Location Blood Pressure Position O2 Sat by Pulse Oximetry 97 Oxygen Delivery Method Nasal Cannula Nasal Cannula Nasal Cannula Oxygen Flow Rate 2 Height Weight Telemetry Type Telemetry Monitoring Telemetry Heart Rate Telemetry SPO2 EKG NV Interval EKG QRS Interval Telemetry Strip Reading 04/30/23 16:39 04/30/23 18:00 04/30/23 18:00 Temperature 97.7 F Temperature Source Temporal Artery Scan Pulse Rate 126 H Pulse Rate [Apical] Respiratory Rate 28 H Blood Pressure 126/64 Blood Pressure Mean 84 Blood Pressure Left Arm Blood Pressure Location Left Arm Blood Pressure Position Sitting O2 Sat by Pulse Oximetry 93 L Oxygen Delivery Method Nasal Cannula Nasal Cannula Nasal Cannula Oxygen Flow Rate 2 Height Weight Telemetry Type Telemetry Monitoring Telemetry Heart Rate Telemetry SPO2 EKG NV Interval EKG QRS Interval Telemetry Strip Reading 04/30/23 19:00 04/30/23 20:00 04/30/23 20:00 Temperature Temperature Source Pulse Rate Pulse Rate [Apical] Respiratory Rate Blood Pressure Blood Pressure Mean Blood Pressure Left Arm Blood Pressure Location Blood Pressure Position O2 Sat by Pulse Oximetry 96 Oxygen Delivery Method Nasal Cannula Nasal Cannula Oxygen Flow Rate 2 2 Height Weight Telemetry Type Remote Telemetry Telemetry Monitoring Continues Telemetry Heart Rate 126 H Telemetry SPO2 95 EKG NV Interval 0.13 EKG QRS Interval 0.11 H Telemetry Strip Reading st with bbb 04/30/23 21:05 05/01/23 01:00 05/01/23 02:00 Temperature 98.6 F 98.7 F Temperature Source Temporal Artery Scan Temporal Artery Scan Pulse Rate 106 H 111 H Pulse Rate [Apical] Respiratory Rate 25 H 23 H Blood Pressure 122/74 120/77 Blood Pressure Mean 90 91 Blood Pressure Left Arm Blood Pressure Location Left Arm Left Arm Blood Pressure Position Sitting Supine O2 Sat by Pulse Oximetry 95 93 L Oxygen Delivery Method Nasal Cannula Nasal Cannula Oxygen Flow Rate 2 2 Height Weight Telemetry Type Remote Telemetry Telemetry Monitoring Continues Telemetry Heart Rate 103 H Telemetry SPO2 93 EKG NV Interval 0.19 EKG QRS Interval 0.[address] 05/01/23 04:55 05/01/23 05:13 05/01/23 07:00 Temperature 98.6 F Temperature Source Temporal Artery Scan Pulse Rate 108 H Pulse Rate [Apical] Respiratory Rate 20 Blood Pressure 122/86 Blood Pressure Mean 98 Blood Pressure Left Arm Blood Pressure Location Left Arm Blood Pressure Position Supine O2 Sat by Pulse Oximetry 93 L 98 Oxygen Delivery Method Nasal Cannula Nasal Cannula Oxygen Flow Rate 2 2 Height Weight Telemetry Type Remote Telemetry Telemetry Monitoring Continues Telemetry Heart Rate 110 H Telemetry SPO2 94 EKG NV Interval 0.16 EKG QRS Interval 0.12 H Telemetry Strip Reading ST w/ BBB 05/01/23 08:00 Temperature Temperature Source Pulse Rate Pulse Rate [Apical] 120 H Respiratory Rate 20 Blood Pressure Blood Pressure Mean Blood Pressure Left Arm Blood Pressure Location Blood Pressure Position O2 Sat by Pulse Oximetry Oxygen Delivery Method Nasal Cannula Oxygen Flow Rate 2 Height Weight Telemetry Type Telemetry Monitoring Telemetry Heart Rate Telemetry SPO2 EKG NV Interval EKG QRS Interval Telemetry Strip Reading Lab Results Lab Results: Lab Results: Last 24 Hours 05/01/23 04/30/23 04/30/23 05:12 13:23 10:45 WBC 13.70 H RBC 3.86 L Hgb 11.6 L Hct 37.6 D MCV 97.4 MCH 30.1 MCHC 30.9 L RDW Coeff of Jj 15.2 H Plt Count 250 Immature Gran % (Auto) 0.7 Neut % (Auto) 92.7 H Lymph % (Auto) 3.9 L Lares % (Auto) 2.6 Eos % (Auto) 0.0 Baso % (Auto) 0.1 Neut # (Auto) 12.7 H Lymph # (Auto) 0.5 L Lares # (Auto) 0.4 Eos # (Auto) 0.0 Baso # (Auto) 0.0 Immature Gran # (Auto) 0.1 Sodium 137.4 Potassium 4.52 Chloride 109.5 H Carbon Dioxide 25.4 Anion Gap 7.02 BUN 15.5 Creatinine 0.66 Estimated GFR (MDRD) 93.00 BUN/Creatinine Ratio 23.48 Glucose 164.9 H D Lactic Acid Calcium 8.23 L Total Bilirubin 0.14 L AST 23.0 ALT 28.1 Alkaline Phosphatase 80.3 Troponin I < 0.012 Total Protein 6.30 Albumin 3.65 Globulin 2.65 Albumin/Globulin Ratio 1.37 Influ A Molecular Assay Influ B Molecular Assay SARS CoV-2 RNA Rapid OBDULIO Miscellaneous Test Sent to [facility] 04/30/23 04/30/23 09:50 09:48 WBC 15.31 H RBC 4.64 Hgb 13.7 Hct 44.6 MCV 96.1 MCH 29.5 MCHC 30.7 L RDW Coeff of Jj 15.2 H Plt Count 312 Immature Gran % (Auto) 0.7 Neut % (Auto) 79.5 H Lymph % (Auto) 8.2 L Lares % (Auto) 9.9 Eos % (Auto) 1.2 Baso % (Auto) 0.5 Neut # (Auto) 12.2 H Lymph # (Auto) 1.3 Lares # (Auto) 1.5 Eos # (Auto) 0.2 Baso # (Auto) 0.1 Immature Gran # (Auto) 0.1 Sodium 137.1 Potassium 4.54 Chloride 105.2 Carbon Dioxide 27.3 Anion Gap 9.14 BUN 19.4 H Creatinine 0.89 Estimated GFR (MDRD) 66.00 BUN/Creatinine Ratio 21.79 Glucose 89.1 Lactic Acid 1.22 Calcium 9.32 Total Bilirubin 0.47 AST 25.6 ALT 28.5 Alkaline Phosphatase 104.6 Troponin I < 0.012 Total Protein 7.28 Albumin 4.19 Globulin 3.09 Albumin/Globulin Ratio 1.35 Influ A Molecular Assay Negative by naat Influ B Molecular Assay Negative by naat SARS CoV-2 RNA Rapid OBDULIO Negative Miscellaneous Test Additional Comments Additional Comments: I have independently reviewed and interpreted the labs/EKGs/imaging ordered during this hospital stay. I have reviewed outside records that are available in our EMR that pertain to medical stay including imaging/notes/labs from previous visits. Active Medications Active Medications: Medications Generic Name Dose Route Start Last Admin Trade Name Freq PRN Reason Stop Dose Admin Acetaminophen 650 mg 04/30/23 13:22 Acetaminophen 325 Mg Tablet PO Q4H PRN Mild Pain Hydrocodone Bitart/Acetaminophen 1 tab 04/30/23 15:41 04/30/23 16:09 Hydrocodone Bit/Acetaminophen 7.5/325 Mg Tablet PO 1 tab BID PRN Administration Pain Albuterol Sulfate 2.5 mg 04/30/23 13:17 Albuterol Sulfate 0.083% Vial.Neb NEB RTQ4H PRN Wheezing Albuterol/Ipratropium 3 ml 04/30/23 14:00 05/01/23 04:55 Ipratropium/Albuterol Vial.Neb NEB 3 ml RTQ4H HERMINIO Administration Amitriptyline HCl 25 mg 04/30/23 21:00 04/30/23 20:09 Amitriptyline Hcl 25 Mg Tablet PO 25 mg BEDTIME HERMINIO Administration Amlodipine Besylate 2.5 mg 04/30/23 15:41 Amlodipine Besylate 5 Mg Tablet PO DAILY PRN Hypertension Budesonide/Formoterol Fumarate 2 puff 04/30/23 21:00 05/01/23 08:24 Budesonide/Formoterol Fumarate 160/4.5 Mcg Inhaler IH 2 puff BID HERMINIO Administration Buspirone HCl 15 mg 04/30/23 21:00 05/01/23 08:17 Buspirone Hcl 10 Mg Tablet PO 15 mg TID HERMINIO Administration Calcium/Vitamin D 1 each 05/01/23 09:00 05/01/23 08:16 Calcium Carbonate/Vitamin D3 500 Mg/5 Mcg(200iu) 1 Each Tablet PO 1 each DAILY HERMINIO Administration Clonidine 0.1 mg 04/30/23 15:41 Clonidine Hcl 0.1 Mg Tablet PO BID PRN Hypertension Cyclobenzaprine HCl 2.5 mg 04/30/23 21:00 05/01/23 08:16 Cyclobenzaprine Hcl 10 Mg Tablet PO 2.5 mg TID HERMINIO Administration Fluoxetine HCl 20 mg 05/01/23 09:00 05/01/23 08:15 Fluoxetine Hcl 20 Mg Capsule PO 20 mg QAM HERMINIO Administration Gabapentin 300 mg 04/30/23 17:00 05/01/23 08:16 Gabapentin 300 Mg Capsule PO 300 mg QID HERMINIO Administration Gabapentin 100 mg 04/30/23 17:00 05/01/23 08:16 Gabapentin 100 Mg Capsule PO 100 mg QID HERMINIO Administration Guaifenesin/Dextromethorphan 10 ml 04/30/23 14:19 04/30/23 15:47 Guaifenesin/Dextromethorphan 200/20 Mg/10 Ml Cup PO 10 ml Q4H PRN Administration Cough CEFTRIAXONE/D5W 1 GM PREMIX 1 gm in 50 mls @ 100 mls/hr 05/01/23 09:00 05/01/23 08:15 Rocephin 1 Gm/50 Ml D5w IV 05/04/23 08:59 100 mls/hr DAILY HERMINIO Administration Doxycycline Hyclate 100 mg/ 100 mls @ 50 mls/hr 04/30/23 21:00 05/01/23 09:25 Sodium Chloride IV 05/03/23 20:59 50 mls/hr Q12HR HERMINIO Administration Sodium Chloride 1,000 mls @ 100 mls/hr 04/30/23 15:00 05/01/23 05:15 Sodium Chloride IV 100 mls/hr .Q10H HERMINIO Administration Lisinopril 40 mg 05/01/23 09:00 05/01/23 08:15 Lisinopril 40 Mg Tablet PO 40 mg DAILY HERMINIO Administration Meclizine HCl 25 mg 04/30/23 15:41 Meclizine Hcl 25 Mg Tablet PO BID PRN Dizziness Meloxicam 15 mg 05/01/23 07:30 05/01/23 07:53 Meloxicam 7.5 Mg Tablet PO 15 mg DAILYWM2 HERMINIO Administration Methylprednisolone Sodium Succinate 40 mg 04/30/23 21:00 05/01/23 05:46 Methylprednisolone Sod Succ/Pf 40 Mg/Ml Vial IVP 40 mg Q8HR HERMINIO Administration Pantoprazole Sodium 40 mg 05/01/23 06:00 05/01/23 05:17 Pantoprazole Sodium 40 Mg Tablet. PO 40 mg QDAC2 HERMINIO Administration Tiotropium Notrees 1 cap 05/01/23 09:00 05/01/23 08:24 Tiotropium Notrees 18 Mcg Cap.W.Dev IH 1 cap DAILY HERMINIO Administration Plan Plan: 1. Sepsis in setting of Community-Acquired Pneumonia - blood cultures pending, sputum culture, legionella, and strep pneumo ordered, received 2L NS in ER, r ocephin and doxycycline for abx 2. Community-Acquired Pneumonia - rocephin and doxy, steroids, nebs 3. COPD - chronic, appears at baseline, plan as above, Rt following 4. Hypertension - chronic, continue home medications 5. GERD - chronic, continue home medications DVT Prophylaxis: Up with assistance Time Spent: Greater than 80 minutes spent with patient, 50% of the time spent with this patient was devoted to counseling and coordination of care. Advanced Care Plannin minutes spent discussing advance care planning. - Upon discharge, patient would benefit from hospital bed to raise head of bed more than 30 degrees. She is unable to lie flat and requires frequent position changes due to COPD. Review Statement Review Statement: I have personally discussed and reviewed the patient's visit/currently labs/imaging/decision making with Dr. Sousa, my supervising attending. Greater that 50 minutes spent with patient, 50% of the time spent with this patient was devoted to counseling and coordination of care.
--- NOTE | 2023-05-01 11:24 | RS.PTINEVL ---
Subjective Patient information Date of Evaluation: 05/01/23 Date of Arrival on Unit: 04/30/23 Admitted From:: Home Diagnosis: sepsis, pneumonia Usual Living Arrangement: With Others Living Arrangement Comments: lives at home with sister who is 5 years older. Home Environment: Apartment and Level/No stairs Medical History: Hypertension, COPD and Arthritis Medical History Comments:: GERD, asthma, anxiety, chronic low back pain, scoliosis, osteoporosis LATEX ALLERGY?: No Surgical History: Cervical Spine and Medications: see chart Subjective Information/ Patient Comments:: pt states that she is doing better, still SOA. pt is agreeable to participate with PT. Level of function Prior to this admission, the patient could do the following:: Independent Selfcare, Independent ADL's, Independent Ambulation (with rollator ) and Perform Travel Pta/Cooking Current Level of Function: Partially Dependent Current Equipment Used at Home: O2 tank and concentrator, nebulizer, rollator Interventions Objective Patient Orientation: Person, Place, Time and Situation Current Interventions: IV's, Oxygen (2 liters) and Telemetry Observation: non pitting edema BLE Range of Motion ROM Right Upper Extremity AROM: WFL's Left Upper Extremity AROM: Slight limitation (limited shld flex ) Right Lower Extremity AROM: WFL's Left Lower Extremity AROM: WFL's Muscle Strength Muscle Strength Right Upper Extremity: Mild Weakness (grossly 4/5 ) Left Upper Extremity: Mild Weakness (shld flex 3-/5, elbow flex/ext 4/5 ) Right Lower Extremity: Mild Weakness (hip flex 4/5, knee flex 4/5, ext 4+/5, ankle DF/PF 4+/5) Left Lower Extremity: Mild Weakness (hip flex 4/5, knee flex 4/5, ext 4+/5, ankle DF/PF 4+/5) Sensation Sensation Right Upper Extremity: Intact/Normal Left Upper Extremity: Intact/Normal Right Lower Extremity: Intact/Normal Left Lower Extremity: Intact/Normal Palpation Palpation Findings: None/Normal Balance Sitting Balance and Reactions Static Sitting Balance: Good Dynamic Sitting Balance: Good Standing Balance and Reactions Static Standing Balance: Fair Dynamic Standing Balance: Fair (fair-) Functional Mobility Bed Mobility Rolling R/L: Independent Supine to Sit: CGA Transfers Sit to Stand: CGA Stand to Sit: CGA Safety Awareness Safety Awareness: Fair DANAE INDEX SCORE: n/a Ambulation Ambulation Assistive Device Used: Rollator Orthotic/Prosthetic Device: No Distance: 140ft w O2 2 liters Assistance needed with Ambulation: CGA Gait Deviations: Forward posture and Short stride Ambulation Comments: pt required 2 standing rest periods. Pulse ox remained 94 to 96% Factors Affecting Ambulation: Decreased Balance, Breathing/O2 Saturation, Weakness, Decreased Safety and Limited Endurance Treatment time Units charged Gait trainin Time with patient Length of Evaluation: 18 Total treatment time: 31 Patient Education Education Patient Education: Activity Modification and Education of Plan of Care Teaching Recipient: Patient Teaching Methods: Discussion Comments: discussion regarding POC and home safety. Assessment Assessment Problem List:: Decreased level of function, Requires training/education, Decreased safety/Risk of falls and Weakness Rehab Potential: Good Further Therapy Indicated?: Yes Candidate for Swing Bed for Therapy Services?: Feel pt may not be a candidate for swing bed for therapy due to pt high level of function. Evaluation Complexity: HISTORY: Medium, EXAM OF BODY SYSTEMS: Medium, CLINICAL PRESENTATION: Medium and CLINICAL DECISION MAKING: Medium Patient's Goal(s): Be stronger and get to go home. Short Term Goals GOAL #1: pt demonstrate rolling and scooting in bed independently. Goal to be met by: 05/03/23 GOAL #2: Transfer sup to/from sit to/from stand independently. Goal to be met by: 05/03/23 GOAL #3: pt amb with rwx 150ft with O2 and CGA to SBA Goal to be met by: 05/03/23 GOAL #4: Improve Dyn stand balance fair Goal to be met by: 05/03/23 Custodial Goals GOAL #1: pt transfer sup to/from sit to/frrom stand independently. Goal to be met by: 05/05/23 GOAL #2: pt amb functional household distances w rwx and O2 independently Goal to be met by: 05/05/23 GOAL #3: Improve BLE strength 4+/5 Goal to be met by: 05/05/23 Plan Plan of Care: Therapeutic EX and Therapeutic Activity Other:: gait training Frequency of Treatment: 1-2 X day, as tolerated Duration of Treatment: 5 days Anticipated Discharge Destination: Home Treatment Diagnosis (ICD 10 Codes): gait difficulty R 26.2 impaired balance R 26.81 weakness M62.81 Has the Physician been added for Co-signature?: Yes
[2023-05-01] MEDS: NORCO 7.5-325 PO PRN (18:54)
[2023-05-01] MEDS: ELAVIL PO SCH (20:35)
[2023-05-02] MEDS: DUONEB NEB SCH ×6 (02:11→22:20)
[2023-05-02] MEDS: PROTONIX PO SCH (05:22)
[2023-05-02] MEDS: SOLU-MEDROL 40 MG IVP SCH ×3 (05:33→21:11)
[2023-05-02] MEDS: SODIUM CHLORIDE 1,000 ML IV SCH (05:40)
[2023-05-02 05:44] LABS: BASOPHILS % (AUTO) 0.1 % (0.0-3.0); HEMATOCRIT 38.4 % (37.0-47.0); HEMOGLOBIN 11.9 g/dl (12.0-16.0); IMMATURE GRANULOCYTE # (AUTO) 0.2 (0.0-1.0); IMMATURE GRANULOCYTE % (AUTO) 0.9 % (0.0-5.0); LYMPHOCYTES # (AUTO) 0.6 K/uL (0.60-3.4); LYMPHOCYTES % (AUTO) 3.6 (10.0-50.0); MEAN CORPUSCULAR HEMOGLOBIN 29.9 pg (27.0-31.0); MEAN CORPUSCULAR VOLUME 96.5 fl (81.0-99.0); MONOCYTES # (AUTO) 0.8 K/uL (0.4-2.0); MONOCYTES % (AUTO) 4.6 (0-10); NEUTROPHILS # (AUTO) 15.1 K/ul (2.0-6.9); NEUTROPHILS % (AUTO) 90.8 % (42.2-75.2); PLATELET COUNT 256 10^3/uL (140-440); RDW COEFFICIENT OF VARIATION 14.9 % (11.6-14.8); RED BLOOD COUNT 3.98 10^6/ul (4.20-5.40); WHITE BLOOD COUNT 16.61 K/ul (4.6-10.2)
[2023-05-02 06:04] LABS: ALANINE AMINOTRANSFERASE 31.4 U/L (0-35); ALBUMIN 3.72 g/dL (3.5-5.0); ALKALINE PHOSPHATASE 79.4 U/L (38-126); ASPARTATE AMINO TRANSFERASE 21.8 U/L (14-36); BILIRUBIN,TOTAL 0.11 mg/dL (0.2-1.3); BLOOD UREA NITROGEN 17.2 mg/dL (7-17); CALCIUM 8.65 mg/dL (8.4-10.2); CARBON DIOXIDE 26.1 mmol/L (22-30.0); CHLORIDE 108.6 mmol/L (98-107); CREATININE 0.7 mg/dL (0.60-1.30); POTASSIUM 4.66 mmol/L (3.5-5.1); SODIUM 136.9 mmol/L (134.5-145); TOTAL PROTEIN 6.39 g/dL (6.3-8.2)
[2023-05-02] MEDS: MOBIC PO SCH (07:35)
[2023-05-02] MEDS ORDERED: LASIX IVP ONE (09:01)
[2023-05-02] MEDS: SYMBICORT 160-4.5 MCG INHALER IH SCH ×2 (09:44→20:14)
[2023-05-02] MEDS: SPIRIVA IH SCH (09:44)
[2023-05-02] MEDS: NEURONTIN PO SCH ×8 (09:47→20:15)
[2023-05-02] MEDS: FLEXERIL PO SCH ×3 (09:48→20:14)
[2023-05-02] MEDS: MUCINEX PO SCH ×2 (09:49→20:14)
[2023-05-02] MEDS: ROCEPHIN 1 GM/50 ML D5W 1 GM/50 ML BAG IV SCH (09:49)
[2023-05-02] MEDS: CALCIUM 500 + VIT D 5 MCG (200 IU) TABLET PO SCH (09:49)
[2023-05-02] MEDS: PROZAC PO SCH (09:49)
[2023-05-02] MEDS: ZESTRIL PO SCH (09:50)
[2023-05-02] MEDS: BUSPAR PO SCH ×3 (09:50→20:14)
--- NOTE | 2023-05-02 09:52 | PCM.PROG ---
Date/Time Seen Date Seen by Provider: 05/02/23 Time Seen by Provider: 09:00 Provider Provider: SANJUANA REBOLLAR, [facility] Chief Complaint Chief Complaint: SEPSIS Subjective Subjective: Reports she just can't get a deep breath. Feels as if someone is sitting on her chest and legs are swollen. No PMH of CHF. Objective Appearance: Positive No Apparent Distress, Alert and Oriented x3 and Ill- Appearing Chest/Lungs: Positive Symmetrical With Equal Breath Sounds and Wheezes (diminished, expiratory wheezing in lung bases) Heart: Positive RRR and Pulses Normal GI/: Positive Soft, Nontender, Bowel Sounds Normal and No Distention Musculoskeletal: Positive Not Examined Neurological: Positive Sensation Intact, Motor intact, Reflexes Intact, Alert and Oriented Vital Signs Vital Signs: Vital Signs: Last 24 Hours 05/01/23 09:57 05/01/23 10:00 05/01/23 13:00 Temperature 97.3 F L Temperature Source Temporal Artery Scan Pulse Rate 118 H Respiratory Rate 24 H Blood Pressure 126/76 Blood Pressure Mean 92 Blood Pressure Location Left Arm Blood Pressure Position O2 Sat by Pulse Oximetry 98 94 L Oxygen Delivery Method Nasal Cannula Nasal Cannula Oxygen Flow Rate 2 2 Telemetry Type Remote Telemetry Telemetry Monitoring Continues Telemetry Heart Rate 120 H Telemetry SPO2 94 EKG LA Interval 0.14 EKG QRS Interval 0.12 H Telemetry Strip Reading ST 05/01/23 14:00 05/01/23 18:00 05/01/23 19:00 Temperature 98.0 F 97.3 F L Temperature Source Temporal Artery Scan Tympanic Pulse Rate 117 H 118 H Respiratory Rate 22 H 26 H Blood Pressure 136/78 154/75 H Blood Pressure Mean 97 101 Blood Pressure Location Left Arm Left Arm Blood Pressure Position Sitting O2 Sat by Pulse Oximetry 95 96 Oxygen Delivery Method Nasal Cannula Nasal Cannula Oxygen Flow Rate 2 2 Telemetry Type Remote Telemetry Telemetry Monitoring Continues Telemetry Heart Rate 117 H Telemetry SPO2 96 EKG LA Interval 0.16 EKG QRS Interval 0.[address] 05/01/23 19:58 05/01/23 19:59 05/01/23 21:15 Temperature 97.9 F Temperature Source Temporal Artery Scan Pulse Rate 114 H Respiratory Rate 23 H Blood Pressure 143/89 H Blood Pressure Mean 107 Blood Pressure Location Right Arm Blood Pressure Position Supine O2 Sat by Pulse Oximetry 96 96 Oxygen Delivery Method Nasal Cannula Nasal Cannula Nasal Cannula Oxygen Flow Rate 2 2 2 Telemetry Type Telemetry Monitoring Telemetry Heart Rate Telemetry SPO2 EKG LA Interval EKG QRS Interval Telemetry Strip Reading 05/02/23 01:00 05/02/23 02:00 05/02/23 05:00 Temperature Temperature Source Pulse Rate 102 H Respiratory Rate 20 Blood Pressure Blood Pressure Mean Blood Pressure Location Blood Pressure Position O2 Sat by Pulse Oximetry 99 98 Oxygen Delivery Method Nebulizer Treatment Nasal Cannula Oxygen Flow Rate 2 Telemetry Type Remote Telemetry Telemetry Monitoring Continues Telemetry Heart Rate 106 H Telemetry SPO2 96 EKG LA Interval 0.13 EKG QRS Interval 0.12 H Telemetry Strip Reading ST W/ BBB 05/02/23 05:20 05/02/23 07:00 Temperature 97.1 F L Temperature Source Temporal Artery Scan Pulse Rate 116 H Respiratory Rate 20 Blood Pressure 148/93 H Blood Pressure Mean 111 Blood Pressure Location Right Arm Blood Pressure Position Supine O2 Sat by Pulse Oximetry 99 Oxygen Delivery Method Nasal Cannula Oxygen Flow Rate 2 Telemetry Type Remote Telemetry Telemetry Monitoring Continues Telemetry Heart Rate 109 H Telemetry SPO2 97 EKG LA Interval 0.16 EKG QRS Interval 0.12 H Telemetry Strip Reading Sinus Tach. with BBB Lab Results Lab Results: Lab Results: Last 24 Hours 05/02/23 05:24 WBC 16.61 H RBC 3.98 L Hgb 11.9 L Hct 38.4 MCV 96.5 MCH 29.9 MCHC 31.0 L RDW Coeff of Jj 14.9 H Plt Count 256 Immature Gran % (Auto) 0.9 Neut % (Auto) 90.8 H Lymph % (Auto) 3.6 L [place] % (Auto) 4.6 Eos % (Auto) 0.0 Baso % (Auto) 0.1 Neut # (Auto) 15.1 H Lymph # (Auto) 0.6 [place] # (Auto) 0.8 Eos # (Auto) 0.0 Baso # (Auto) 0.0 Immature Gran # (Auto) 0.2 Sodium 136.9 Potassium 4.66 Chloride 108.6 H Carbon Dioxide 26.1 Anion Gap 6.86 BUN 17.2 H Creatinine 0.70 Estimated GFR (MDRD) 87.00 BUN/Creatinine Ratio 24.57 Glucose 136.0 H Calcium 8.65 Total Bilirubin 0.11 L AST 21.8 ALT 31.4 Alkaline Phosphatase 79.4 Total Protein 6.39 Albumin 3.72 Globulin 2.67 Albumin/Globulin Ratio 1.39 Additional Comments Additional Comments: I have independently reviewed and interpreted the labs/EKGs/imaging ordered during this hospital stay. I have reviewed outside records that are available in our EMR that pertain to medical stay including imaging/notes/labs from previous visits. Active Medications Active Medications: Medications Generic Name Dose Route Start Last Admin Trade Name Freq PRN Reason Stop Dose Admin Acetaminophen 650 mg 04/30/23 13:22 Acetaminophen 325 Mg Tablet PO Q4H PRN Mild Pain Hydrocodone Bitart/Acetaminophen 1 tab 04/30/23 15:41 05/01/23 18:54 Hydrocodone Bit/Acetaminophen 7.5/325 Mg Tablet PO 1 tab BID PRN Administration Pain Albuterol Sulfate 2.5 mg 04/30/23 13:17 Albuterol Sulfate 0.083% Vial.Neb NEB RTQ4H PRN Wheezing Albuterol/Ipratropium 3 ml 04/30/23 14:00 05/02/23 05:02 Ipratropium/Albuterol Vial.Neb NEB 3 ml RTQ4H HERMINIO Administration Amitriptyline HCl 25 mg 04/30/23 21:00 05/01/23 20:35 Amitriptyline Hcl 25 Mg Tablet PO 25 mg BEDTIME HERMINIO Administration Amlodipine Besylate 2.5 mg 04/30/23 15:41 Amlodipine Besylate 5 Mg Tablet PO DAILY PRN Hypertension Budesonide/Formoterol Fumarate 2 puff 04/30/23 21:00 05/01/23 20:37 Budesonide/Formoterol Fumarate 160/4.5 Mcg Inhaler IH 2 puff BID HERMINIO Administration Buspirone HCl 15 mg 04/30/23 21:00 05/01/23 20:36 Buspirone Hcl 10 Mg Tablet PO 15 mg TID HERMINIO Administration Calcium/Vitamin D 1 each 05/01/23 09:00 05/01/23 08:16 Calcium Carbonate/Vitamin D3 500 Mg/5 Mcg(200iu) 1 Each Tablet PO 1 each DAILY HERMINIO Administration Clonidine 0.1 mg 04/30/23 15:41 Clonidine Hcl 0.1 Mg Tablet PO BID PRN Hypertension Cyclobenzaprine HCl 2.5 mg 04/30/23 21:00 05/01/23 20:35 Cyclobenzaprine Hcl 10 Mg Tablet PO 2.5 mg TID HERMINIO Administration Fluoxetine HCl 20 mg 05/01/23 09:00 05/01/23 08:15 Fluoxetine Hcl 20 Mg Capsule PO 20 mg QAM HERMINIO Administration Gabapentin 300 mg 04/30/23 17:00 05/01/23 20:35 Gabapentin 300 Mg Capsule PO 300 mg QID HERMINIO Administration Gabapentin 100 mg 04/30/23 17:00 05/01/23 20:35 Gabapentin 100 Mg Capsule PO 100 mg QID HERMINIO Administration Guaifenesin 1,200 mg 05/02/23 09:05 Guaifenesin 600 Mg Tablet.Er PO Q12HR HERMINIO Guaifenesin/Dextromethorphan 10 ml 04/30/23 14:19 04/30/23 15:47 Guaifenesin/Dextromethorphan 200/20 Mg/10 Ml Cup PO 10 ml Q4H PRN Administration Cough CEFTRIAXONE/D5W 1 GM PREMIX 1 gm in 50 mls @ 100 mls/hr 05/01/23 09:00 05/01/23 08:15 Rocephin 1 Gm/50 Ml D5w IV 05/04/23 08:59 100 mls/hr DAILY HERMINIO Administration Doxycycline Hyclate 100 mg/ 100 mls @ 50 mls/hr 04/30/23 21:00 05/01/23 20:37 Sodium Chloride IV 05/03/23 20:59 50 mls/hr Q12HR HERMINIO Administration Lisinopril 40 mg 05/01/23 09:00 05/01/23 08:15 Lisinopril 40 Mg Tablet PO 40 mg DAILY HERMINIO Administration Meclizine HCl 25 mg 04/30/23 15:41 Meclizine Hcl 25 Mg Tablet PO BID PRN Dizziness Meloxicam 15 mg 05/01/23 07:30 05/02/23 07:35 Meloxicam 7.5 Mg Tablet PO 15 mg DAILYWM2 HERMINIO Administration Methylprednisolone Sodium Succinate 40 mg 04/30/23 21:00 05/02/23 05:33 Methylprednisolone Sod Succ/Pf 40 Mg/Ml Vial IVP 40 mg Q8HR HERMINIO Administration Pantoprazole Sodium 40 mg 05/01/23 06:00 05/02/23 05:22 Pantoprazole Sodium 40 Mg Tablet.Dr PO 40 mg QDAC2 HERMINIO Administration Tiotropium [place] 1 cap 05/01/23 09:00 05/01/23 08:24 Tiotropium [place] 18 Mcg Cap.W.Dev IH 1 cap DAILY HERMINIO Administration Plan Plan: 1. Sepsis in setting of Community-Acquired Pneumonia - blood cultures prelim negative x 1 day, sputum culture, legionella, and strep pneumo ordered, received 2L NS in ER, rocephin and doxycycline for abx 2. Community-Acquired Pneumonia - rocephin and doxy, steroids, nebs 3. COPD - chronic, appears at baseline, plan as above, Rt following 4. Hypertension - chronic, continue home medications 5. GERD - chronic, continue home medications 6. Fluid overload - stopping fluids, x1 dose of lasix 20 mg IV, will get echo if no improvement DVT Prophylaxis: Up with assistance Review Statement Review Statement: I have personally discussed and reviewed the patient's visit/currently labs/imaging/decision making with Dr. Sousa, my supervising attending. Greater that 50 minutes spent with patient, 50% of the time spent with this patient was devoted to counseling and coordination of care.
[2023-05-02] MEDS: DOXY-100 100 MG in SODIUM CHLORIDE 100ML 100 ML IV SCH ×2 (10:41→20:14)
[2023-05-02] MEDS: ELAVIL PO SCH (20:15)
[2023-05-03] MEDS: DUONEB NEB SCH ×3 (01:36→10:00)
[2023-05-03] MEDS: PROTONIX PO SCH (05:14)
[2023-05-03] MEDS: SOLU-MEDROL 40 MG IVP SCH ×2 (05:53→12:24)
[2023-05-03 06:18] LABS: BASOPHILS % (AUTO) 0.1 % (0.0-3.0); HEMATOCRIT 41.5 % (37.0-47.0); HEMOGLOBIN 12.9 g/dl (12.0-16.0); IMMATURE GRANULOCYTE # (AUTO) 0.2 (0.0-1.0); IMMATURE GRANULOCYTE % (AUTO) 1.2 % (0.0-5.0); LYMPHOCYTES # (AUTO) 0.4 K/uL (0.60-3.4); LYMPHOCYTES % (AUTO) 3.3 (10.0-50.0); MEAN CORPUSCULAR HEMOGLOBIN 29.7 pg (27.0-31.0); MEAN CORPUSCULAR HGB CONC 31.1 (31.8-35.4); MEAN CORPUSCULAR VOLUME 95.4 fl (81.0-99.0); MONOCYTES # (AUTO) 0.6 K/uL (0.4-2.0); MONOCYTES % (AUTO) 4.3 (0-10); NEUTROPHILS # (AUTO) 12.3 K/ul (2.0-6.9); NEUTROPHILS % (AUTO) 91.1 % (42.2-75.2); PLATELET COUNT 276 10^3/uL (140-440); RDW COEFFICIENT OF VARIATION 14.9 % (11.6-14.8); RED BLOOD COUNT 4.35 10^6/ul (4.20-5.40); WHITE BLOOD COUNT 13.45 K/ul (4.6-10.2)
[2023-05-03 06:35] LABS: ALANINE AMINOTRANSFERASE 32.5 U/L (0-35); ALBUMIN 3.98 g/dL (3.5-5.0); ALKALINE PHOSPHATASE 88.3 U/L (38-126); BILIRUBIN,TOTAL 0.25 mg/dL (0.2-1.3); CALCIUM 9.37 mg/dL (8.4-10.2); CARBON DIOXIDE 27.6 mmol/L (22-30.0); CHLORIDE 107.3 mmol/L (98-107); CREATININE 0.71 mg/dL (0.60-1.30); GLUCOSE 183.8 mg/dL (74-106); POTASSIUM 4.28 mmol/L (3.5-5.1); SODIUM 136.6 mmol/L (134.5-145); TOTAL PROTEIN 6.72 g/dL (6.3-8.2)
[2023-05-03] MEDS: MOBIC PO SCH (07:39)
[2023-05-03] MEDS: NEURONTIN PO SCH ×4 (08:49→12:13)
[2023-05-03] MEDS: CALCIUM 500 + VIT D 5 MCG (200 IU) TABLET PO SCH (08:49)
[2023-05-03] MEDS: ROCEPHIN 1 GM/50 ML D5W 1 GM/50 ML BAG IV SCH (08:49)
[2023-05-03] MEDS: MUCINEX PO SCH (08:49)
[2023-05-03] MEDS: BUSPAR PO SCH (08:49)
[2023-05-03] MEDS: PROZAC PO SCH (08:49)
[2023-05-03] MEDS: ZESTRIL PO SCH (08:50)
[2023-05-03] MEDS: FLEXERIL PO SCH (08:50)
[2023-05-03] MEDS: SPIRIVA IH SCH (08:55)
[2023-05-03] MEDS: SYMBICORT 160-4.5 MCG INHALER IH SCH (08:55)
[2023-05-03] MEDS: DOXY-100 100 MG in SODIUM CHLORIDE 100ML 100 ML IV SCH (10:00)
[2023-05-03 10:23] VITALS: BP 147/88; PULSE 112; RESP 17; TEMP 97.7
--- NOTE | 2023-05-03 13:08 | DCSUM ---
Admission Date Admission Date: 04/30/23 Discharge Date Discharge Date: 05/03/23 Admission Diagnosis Admission Diagnosis: 1. Sepsis in setting of Community-Acquired Pneumonia 2. Community-Acquired Pneumonia 3. COPD 4. Hypertension 5. GERD Discharge Diagnosis Discharge Diagnosis: 1. Sepsis in setting of Community-Acquired Pneumonia - Ruled out 2. Community-Acquired Pneumonia - Improving 3. COPD - Chronic, stable 4. Hypertension - Chronic, stable 5. GERD - Chronic, stable 6. Fluid overload - Resolved Hospital Provider Hospital Provider: SANJUANA REBOLLAR, [facility] Primary Care Physician Primary Care Physician: TRISTAN HURT Summary of History and Physical Summary of History and Physical: 52 yo female presented to the ER with complaints of SOB. Patient states that she saw her PCP approximately 1 week ago and was diagnosed with pneumonia. She was prescribed a Z arti, medrol dose pack, and mucinex. Completed all medications and has continued to feel bad. States that she has continued to be short of breath and has a nonproductive cough. Has been using her nebulizers and inhalers at home as prescribed. Denies fever, chills, chest pain, N/V/D. Does report rib tenderness from coughing. Hospital Course Subjective: During stay, patient received rocephin and doxycycline for treatment of community acquired pneumonia as well as steroids and nebs. WBC count trended down. Blood cultures were obtained and negative x 48 hours. Legionella was negative. Strep pneumo still pending. Sputum culture canceled due to lack of sputum produced. Received 2L of NS in ER. Continued IVF due to clinically appearing dry at 100mL/hr. Became overloaded yesterday with leg swelling, 1 dose of IVP lasix given and fluid retention resolved. All other home medications continued and no changes were made. Appearance: Pleasant, No Apparent Distress and Alert HEENT: MMM and Supple CVS: No Murmur Abdomen: Soft and Non-Tender Respiratory: No Dyspnea Extremities: No Edema Vital Signs: Most Recent Vital Signs Temperature 97.7 F 05/03/23 10:00 Temperature Source Oral 05/03/23 10:00 Temperature Source Oral 04/30/23 09:30 Pulse Rate 112 H 05/03/23 10:00 Respiratory Rate 17 05/03/23 10:00 Blood Pressure 147/88 H 05/03/23 10:00 Blood Pressure Mean 107 05/03/23 10:00 Blood Pressure Left Arm 127/84 04/30/23 12:44 Blood Pressure Location Left Arm 05/03/23 10:00 Blood Pressure Position Sitting 05/03/23 10:00 O2 Sat by Pulse Oximetry 96 05/03/23 10:00 Oxygen Delivery Method Nasal Cannula 05/03/23 10:00 Oxygen Flow Rate 2 05/03/23 10:00 Height 5 ft 2 in 04/30/23 12:44 Weight 163 lb 3 oz 04/30/23 12:44 Telemetry Type Remote Telemetry 05/03/23 07:00 Telemetry Monitoring Continues 05/03/23 07:00 Irregular Telemetry Rate (Approximate) 100-110 BPM 05/03/23 07:00 Telemetry Heart Rate 105 H 05/03/23 07:00 Telemetry SPO2 97 05/03/23 07:00 EKG TN Interval 0.13 05/03/23 07:00 EKG QRS Interval 0.15 H 05/03/23 07:[address] w/BBB 05/03/23 07:00 Lab Results Last 24 Hours: 05/03/23 04/30/23 05:54 18:30 WBC 13.45 H RBC 4.35 Hgb 12.9 Hct 41.5 MCV 95.4 MCH 29.7 MCHC 31.1 L RDW Coeff of Jj 14.9 H Plt Count 276 Immature Gran % (Auto) 1.2 Neut % (Auto) 91.1 H Lymph % (Auto) 3.3 L [place] % (Auto) 4.3 Eos % (Auto) 0.0 Baso % (Auto) 0.1 Neut # (Auto) 12.3 H Lymph # (Auto) 0.4 L [place] # (Auto) 0.6 Eos # (Auto) 0.0 Baso # (Auto) 0.0 Immature Gran # (Auto) 0.2 Sodium 136.6 Potassium 4.28 Chloride 107.3 H Carbon Dioxide 27.6 Anion Gap 5.98 BUN 28.0 H Creatinine 0.71 Estimated GFR (MDRD) 86.00 BUN/Creatinine Ratio 39.43 Glucose 183.8 H Calcium 9.37 Total Bilirubin 0.25 AST 21.0 ALT 32.5 Alkaline Phosphatase 88.3 Total Protein 6.72 Albumin 3.98 Globulin 2.74 Albumin/Globulin Ratio 1.45 Urine Legionella Ag Negative Discharge Instructions Discharge Planning: Discharge Planning > 40 minutes If patient is discharged with left ventricular systolic dysfunction: NA Discharged with a beta lorraine? [] If no, why not? [] Discharged with an graham/arb? [] If no, why not? [] DX: COMMUNITY ACQUIRED PNEUMONIA Regular diet Activity as tolerated Follow-up with PCP next week. New Medications: Cephalexin 500 mg twice a day for 7 days Prednisone taper - take as directed until completed Mucinex 1200 mg twice a day Continue to use your nebulizers and inhalers at home as previously prescribed. [facility] WILL BE IN CONTACT WITH YOU TO SET UP HOSPITAL BED DELIVERY. SHOULD YOU NEED TO CONTACT THEM, THEIR NUMBER IS [phone]. Discharge Medications: Medications at Discharge (Home Meds & RX) blood pressure monitor (Blood Pressure Kit) #1 ea 10/20/21 blood pressure monitor #1 ea 12/06/21 hydrocodone 7.5 mg-acetaminophen 325 mg tablet 1 tab PO BID PRN Analgesia 11/25 08/16 buspirone 15 mg tablet 15 mg PO TID #90 tabs 02/13/22 albuterol sulfate 90 mcg/actuation aerosol inhaler (ProAir HFA) 2 puff inhalation Q4-6H PRN shortness of breath or wheezing #8.5 grams 03/08/22 amitriptyline 25 mg tablet 25 mg PO QHS #30 tabs 03/08/22 budesonide-formoterol HFA 160 mcg-4.5 mcg/actuation aerosol inhaler (Symbicort) See Rx Instructions .Route .COMPLEX #10.2 blisters 03/08/22 lisinopril 40 mg tablet 40 mg PO QDAY #30 tabs 03/08/22 tiotropium bromide 18 mcg capsule with inhalation device (Spiriva with HandiHaler) See Rx Instructions .Route .COMPLEX #30 blisters 04/06/22 pantoprazole 40 mg tablet,delayed release See Rx Instructions .Route .COMPLEX #30 tabs 05/04/22 alendronate 70 mg tablet 70 mg PO WEEKLY 10/17/22 calcium 600 mg capsule 600 mg PO DAILY 10/17/22 clonidine HCl 0.1 mg tablet 0.1 mg PO BID PRN hypertensive emergency 10/17/22 ergocalciferol (vitamin D2) 1,250 mcg (50,000 unit) capsule 50,000 unit PO WEEKLY 10/17/22 fluoxetine 40 mg capsule (Prozac) 20 mg PO QAM 10/17/22 meloxicam 15 mg tablet 15 mg PO DAILY 10/17/22 gabapentin 400 mg capsule 400 mg PO QID pain 12/10/22 albuterol sulfate 2.5 mg/3 mL (0.083 %) solution for nebulization 2.5 mg inhalation .Q12 PRN shortness of breath or wheezing 04/30/23 amlodipine 2.5 mg tablet 2.5 mg PO DAILY PRN blood pressure [id number] systolic 04/30/23 cyclobenzaprine 5 mg tablet 2.5 mg PO TID 04/30/23 meclizine 25 mg chewable tablet 25 mg PO BID PRN dizziness 04/30/23 cephalexin 500 mg capsule 500 mg PO BID #14 caps 05/03/23 guaifenesin 600 mg tablet, extended release 12 hr (Mucinex) 1,200 mg (2 x 600 mg) PO Q12HR #10 tabs 05/03/23 prednisone 10 mg tablet 10 mg PO DIRECTED #7 tabs 05/03/23 Discharge Plan Discharge Discharge Orders: Discharge Patient (ONCE); Ordered 05/03/23 Ordered By: JOSE EDUARDO BHAGAT Activity Restrictions/Additional Instructions: Regular diet Activity as tolerated Follow-up with PCP next week. New Medications: Cephalexin 500 mg twice a day for 7 days Prednisone taper - take as directed until completed Mucinex 1200 mg twice a day Continue to use your nebulizers and inhalers at home as previously prescribed. [facility] WILL BE IN CONTACT WITH YOU TO SET UP HOSPITAL BED DELIVERY. SHOULD YOU NEED TO CONTACT THEM, THEIR NUMBER IS [phone]. Instructions: COPD (Chronic Obstructive Pulmonary Disease) (GEN), Community Acquired Pneumonia (GEN) Care Plan Goals: Problem: Impaired Respiratory Status Goal: Exhibit optimal respiratory function Instructions: Activities as tolerated Apply oxygen as ordered Elevate head of bed Notify MD of increased congestion Patient Disposition: HOME SELF-CARE Prescriptions: New guaifenesin [Mucinex] 600 mg Tablet Extended Release 12hr 1,200 mg PO Q12HR Qty: 10 0RF cephalexin 500 mg capsule 500 mg PO BID Qty: 14 0RF prednisone 10 mg tablet 10 mg PO DIRECTED Qty: 7 0RF Rx Instructions: see taper instructions Continued buspirone 15 mg tablet 15 mg PO TID Qty: 90 1RF budesonide-formoterol [Symbicort] 160-4.5 mcg/actuation HFA aerosol inhaler See Rx Instructions .ROUTE .COMPLEX Qty: 10.2 2RF Dose Instruction: USE 2 PUFFS TWICE DAILY Rx Instructions: USE 2 PUFFS TWICE DAILY albuterol sulfate [ProAir HFA] 90 mcg/actuation HFA aerosol inhaler 2 puff inhalation Q4-6H PRN (Reason: shortness of breath or wheezing) Qty: 8.5 2RF amitriptyline 25 mg tablet 25 mg PO QHS Qty: 30 1RF lisinopril 40 mg tablet 40 mg PO QDAY Qty: 30 2RF tiotropium bromide [Spiriva with HandiHaler] 18 mcg capsule, w/inhalation device See Rx Instructions .ROUTE .COMPLEX Qty: 30 3RF Dose Instruction: PUNCTURE ONE CAPSULE AND USE 2 INHALATIONS TO INHALE CONTENTS OF CAPSULE ONCE DAILY Rx Instructions: PUNCTURE ONE CAPSULE AND USE 2 INHALATIONS TO INHALE CONTENTS OF CAPSULE ONCE DAILY pantoprazole 40 mg tablet,delayed release (DR/EC) See Rx Instructions .ROUTE .COMPLEX Qty: 30 1RF Dose Instruction: TAKE ONE TABLET DAILY GENERIC FOR PROTONIX Rx Instructions: TAKE ONE TABLET DAILY GENERIC FOR PROTONIX ergocalciferol (vitamin D2) 1,250 mcg (50,000 unit) capsule 50,000 unit PO WEEKLY alendronate 70 mg tablet 70 mg PO WEEKLY meloxicam 15 mg tablet 15 mg PO DAILY calcium 600 mg capsule 600 mg PO DAILY clonidine HCl 0.1 mg tablet 0.1 mg PO BID PRN (Reason: hypertensive emergency) fluoxetine [Prozac] 40 mg capsule 20 mg PO QAM gabapentin 400 mg capsule 400 mg PO QID amlodipine 2.5 mg tablet 2.5 mg PO DAILY PRN (Reason: blood pressure [id number] systolic) cyclobenzaprine 5 mg tablet 2.5 mg PO TID meclizine 25 mg tablet,chewable 25 mg PO BID PRN (Reason: dizziness) albuterol sulfate 2.5 mg /3 mL (0.083 %) solution for nebulization 2.5 mg inhalation .Q12 PRN (Reason: shortness of breath or wheezing) Rx Instructions: Use when home instead of albuterol inhaler as needed for asthma hydrocodone-acetaminophen 7.5-325 mg tablet 1 tab PO BID PRN (Reason: Analgesia) No Action (DME) blood pressure monitor Kit See Rx Instructions .ROUTE Qty: 1 0RF Rx Instructions: Monitor blood pressure twice a day (DME) blood pressure monitor [Blood Pressure Kit] Kit See Rx Instructions .ROUTE Qty: 1 0RF Rx Instructions: Monitor blood pressure twice a day and as needed Did you review [place] [employer] for ALL controlled substances?: No Discussed opioids are addictive and Narcan is available by prescription or from pharmacy.: No Condition: Stable Referrals: TRISTAN HURT [Primary Care Provider] - 05/14/23 11:00 am
== END 2023-05-03 12:45 | disposition home or self-care (01) ==
LOC: MEDSURG B 09:19 → ED 09:19 → INTOOBSV 12:18 → OBSVTOIN 12:18 → MEDSURG B 12:26
PROVIDERS: ADMIT Hospitalist; ATTEND Nurse Practitioner Family
DX: I10 Essential (primary) hypertension; A40.3 Sepsis due to Streptococcus pneumoniae; R26.2 Difficulty in walking, not elsewhere classified; J44.0 Chronic obstructive pulmonary disease with (acute) lower respiratory infection; J18.9 Pneumonia, unspecified organism; Z79.899 Other long term (current) drug therapy; R06.02 Shortness of breath; K21.9 Gastro-esophageal reflux disease without esophagitis; M62.81 Muscle weakness (generalized); Z51.81 Encounter for therapeutic drug level monitoring; Z20.822 Contact with and (suspected) exposure to COVID-19; E87.70 Fluid overload, unspecified; F17.210 Nicotine dependence, cigarettes, uncomplicated

== ENCOUNTER 2023-10-28 17:24 | Inpatient (IN) ==
--- NOTE | 2023-10-28 17:41 | ED.PDOC ---
General ED Provider: Dr. ANTONINO CEJA MD Chief Complaint: Shortness of Air Stated Complaint: Patient with a history of COPD, asthma, hypertension, home oxygen dependent 2 L, complains of productive cough shortness of breath the past 4 to 5 days states she has had no relief at the aerosol treatments at home. Patient has left-sided chest pain upon coughing. Denies fever, chills, arthralgia, nausea, vomiting. Time Seen by Provider: 10/28/23 17:41 Mode of Arrival: Walk-In Information Source: Patient Exam Limitations: Clinical condition Primary Care Provider: TRISTAN HURT Nursing and Triage Documentation Reviewed and Agree: Yes What is Opioid Naive?: *Opioid Naive implies the patient is not already taking opioids or not chronically receiving opioids on a daily basis. *PRN dosing is not "usually" associated with tolerance. *Patients are at higher risk of over-sedation and aspiration. What is Opioid Tolerant?: *Opioid Tolerance implies less than the expected response to an opioid. *Acquired tolerance is defined by the patient taking 60mg of oral morphine daily (or equianalgesic dose of another opioid) for 1 week or more. *Often associated with chronic pain. *May take more than usual dose to achieve desired pain control. Review of Systems Review Of Systems Constitutional: Reports Weakness Eyes: Reports No symptoms Ears, Nose, Mouth, Throat: Reports No symptoms Respiratory: Reports Cough, Shortness of Breath and Wheezing Cardiac: Reports Chest pain ( left-sided lower chest pain upon coughing) GI: Reports No symptoms : Reports No symptoms Musculoskeletal: Reports No symptoms Skin: Reports No symptoms Neurological: Reports No symptoms Endocrine: Reports No symptoms Hematologic/Lymphatic: Reports No symptoms All Other Systems: Reviewed and Negative [facility] Medical History Vitamin B12 deficiency E53.8 - Deficiency of other specified B group vitamins (ICD-10) Osteoporosis M81.0 - Age-related osteoporosis without current pathological fracture (ICD- 10) Severe scoliosis 58 degrees M41.9 - Scoliosis, unspecified (ICD-10) Chronic back pain M54.9 - Dorsalgia, unspecified (ICD-10) Generalized anxiety disorder (03/12/18) F41.1 - Generalized anxiety disorder (ICD-10) Asthma J45.909 - Unspecified asthma, uncomplicated (ICD-10) Hypertension I10 - Essential (primary) hypertension (ICD-10) Chronic obstructive pulmonary disease J44.9 - Chronic obstructive pulmonary disease, unspecified (ICD-10) Suicide attempt T14.91XA - Suicide attempt, initial encounter (ICD-10) Arthritis Back M19.90 - Unspecified osteoarthritis, unspecified site (ICD-10) History of seasonal allergies Z88.9 - Allergy status to unspecified drugs, medicaments and biological substances status (ICD-10) Family History Grandfather/Grandmother COPD (chronic obstructive pulmonary disease) Asthma SISTER Cerebrovascular accident Mother Anxiety Social History Smoking and tobacco status: Current every day smoker Tobacco type: cigarettes Smoking cigarettes per day: 4 Tobacco: How many years used: 35 Quit status: considering quitting Second hand smoke exposure: Yes Smoking risk assessment performed: No Alcohol intake: current Alcohol intake frequency: holidays/special occasions only Counseling given: No Substance use type: does not use Counseling given: No Diamante/baptist: Sabianist Special diamante needs: No Agree to transfusion: Yes Adopted: No Caregiver/support person: Yes Foster care: No Household members: other Other Household Members: sister Housing: apartment Marital status: X LEGALLY Lives independently: Yes Number of children: 3 Number of grandchildren: 0 Highest education level completed: high school graduate Financial difficulty paying for basics: not applicable service: No assisted: No Current occupational status: unemployed Current occupation: applying for disability due to back pain Current occupational exposures/hazards: No Pets and animals: No Leisure activites: other History of recent travel: No Sexually active: No Do you think of yourself as: straight/heterosexual Current gender identity: female Seatbelt use: always Helmet use: No Drives intoxicated or rides with intoxicated non emergency services ambulance driver: No Water heater temperature set < 120 degrees: Yes Working smoke detector in home: Yes Fire extinguisher in home: Yes Carbon monoxide detector in home: Yes Firearms in home: No Surgical History neck surgery 2002 History of section Z98.891 - History of uterine scar from previous surgery (ICD-10) Status post appendectomy Z90.49 - Acquired absence of other specified parts of digestive tract (ICD- 10) Female Reproductive History Menstrual Hx Hysterectomy: No Hx Tubal Ligation: No Physical Exam Physical Exam Appearance: Reports Ill-appearing Ill-appearing: Moderate Pain Distress: None Eyes: Reports ZACK, EOMI and Conjunctiva clear ENT: Reports Nose normal and Oropharynx normal Neck: Supple Respiratory: Reports Airway patent, Breath sounds diminished, Rhonchi, Wheezes and Other (Patient right emergency room labored breathing moderate tachypnea respiratory rate of 26 markedly decreased breath sounds at the bases with diffuse faint rhonchi and wheezes. There is no audible wheezing noted.) Cardiovascular: Reports RRR, Pulses normal, No rub, No murmur and Tachycardia GI/: Reports Soft and Nontender Musculoskeletal: Reports Normal strength and ROM intact Skin: Reports Warm, Dry and Normal color Neurological: Reports Sensation intact, Motor intact and Reflexes intact Psychiatric: Reports Affect appropriate and Mood appropriate Re-Evaluation Re-Evaluation Time of Re-Evaluation: 18:00 Status: Improved Vital Signs Stable: Yes Pain Level: There is mild improvement in basilar air exchange Critical Care Note Critical Care Note Total Critical Care Time (mins): 20 Course Course 10/28/23 18:15 10/28/23 18:15 Orders, Labs, Meds: Lab Review 10/28/23 10/28/23 10/28/23 17:45 18:00 18:15 WBC 12.18 H RBC 4.87 Hgb 14.2 Hct 45.1 MCV 92.6 MCH 29.2 MCHC 31.5 L RDW Coeff of Jj 17.0 H Plt Count 370 Immature Gran % (Auto) 0.9 Neut % (Auto) 69.5 Lymph % (Auto) 19.2 [place] % (Auto) 7.7 Eos % (Auto) 2.1 Baso % (Auto) 0.6 Neut # (Auto) 8.5 H Lymph # (Auto) 2.3 [place] # (Auto) 0.9 Eos # (Auto) 0.3 Baso # (Auto) 0.1 Immature Gran # (Auto) 0.1 PT 9.6 INR 0.92 Puncture Site [employer] Excess 6.1 H O2 Saturation 94.5 ABG pH 7.47 H ABG pCO2 41.0 ABG pO2 68.0 L ABG HCO3 29.8 H ABG Total CO2 31.1 H Huy Test Pos Hemoglobin 1.2 Oxyhemoglobin 88.9 L Carboxyhemoglobin 7.0 H Total Hemoglobin 14.8 O2 Delivery Device Cannula Oxygen Liter Flow 2.00 Sodium 141.6 Potassium 3.89 Chloride 103.4 Carbon Dioxide 31.6 H Anion Gap 10.49 BUN 13.6 Creatinine 1.27 Estimated GFR (MDRD) 44.00 BUN/Creatinine Ratio 10.70 Glucose 103.7 Lactic Acid 2.76 H Calcium 9.81 Magnesium 1.78 Total Bilirubin 0.53 AST 27.0 ALT 32.7 Alkaline Phosphatase 105.8 Troponin I < 0.012 NT-Pro-B Natriuret Pep 37 Total Protein 7.29 Albumin 4.35 Globulin 2.94 Albumin/Globulin Ratio 1.47 D-Dimer 490.77 Influ A Molecular Assay Negative by naat Influ B Molecular Assay Negative by naat RSV Antigen Negative by naat SARS CoV-2 RNA Rapid OBDULIO Negative Orders Category Date Time Status ABG DRAW REQUEST Stat CARDIO 10/28/23 17:41 Completed EKG-(ED ONLY) Stat CARDIO 10/28/23 17:41 Completed NEBULIZER TREATMENT Stat CARDIO 10/28/23 17:42 Completed NEBULIZER TREATMENT Stat CARDIO 10/28/23 18:19 Ordered Door Furring Installer [ED CUSTOMER PRICING MANAGER APPLIED] .ONCE EMERGENCY 10/28/23 17:41 Active ABG COOX Stat LAB 10/28/23 17:45 Completed BLOOD CULTURE (ED ONLY) Stat LAB 10/28/23 18:20 Received CBC W/ AUTO DIFF Stat LAB 10/28/23 18:15 Completed CMP [COMPREHENSIVE METABOLIC PANEL] Stat LAB 10/28/23 18:15 Completed COVID [SARS COV-2 RNA RAPID OBDULIO] Stat LAB 10/28/23 18:00 Completed D-DIMER Stat LAB 10/28/23 18:15 Completed FLU A & B MOLECULAR [FLU A/B MOLECULAR] Stat LAB 10/28/23 18:00 Completed LACTIC ACID Stat LAB 10/28/23 18:15 Completed MAGNESIUM Stat LAB 10/28/23 18:15 Completed PROBNP ED [NT-PROBNP(ED)] Stat LAB 10/28/23 18:15 Completed PT WITH INR Stat LAB 10/28/23 18:15 Completed RSV Stat LAB 10/28/23 18:00 Completed TROPONIN I Stat LAB 10/28/23 18:15 Completed Ipratropium/Albuterol Neb [Duoneb] Meds 10/28/23 17:41 Discontinued 3 ml NEB ONCE STA Ketorolac Tromethamine [Toradol] Meds 10/28/23 19:03 Discontinued 30 mg IVP ONCE STA Levalbuterol HCl [Xopenex 1.25 mg] Meds 10/28/23 18:19 Discontinued 1.25 mg NEB ONCE STA Levofloxacin/D5w [Levaquin 500 mg/100 ml D5w] Meds 10/28/23 17:43 Discontinued 500 mg in 100 ml IV ONCE Methylprednisolone Sod Succ/Pf [Solu-Medrol 125 mg] Meds 10/28/23 17:43 Discontinued 125 mg IVP ONCE ONE Sodium Chloride 0.9% [Sodium Chloride] 1,000 ml Meds 10/28/23 17:43 Active IV 50 mls/hr Sodium Chloride 0.9% [Sodium Chloride] 1,000 ml Meds 10/28/23 19:28 Active IV BOLUS CHEST, 1V AP ONLY Stat RADS 10/28/23 17:42 Completed Medications Generic Name Dose Route Start Last Admin Trade Name Freq PRN Reason Stop Dose Admin Sodium Chloride 1,000 mls @ 50 mls/hr 10/28/23 17:43 10/28/23 18:21 Sodium Chloride IV 10/29/23 13:42 50 mls/hr .Q20H ONE Administration Sodium Chloride 1,000 mls @ 1,000 mls/hr 10/28/23 19:28 Sodium Chloride IV 10/28/23 20:27 BOLUS ONE Discontinued Medications Generic Name Dose Route Start Last Admin Trade Name Freq PRN Reason Stop Dose Admin Albuterol/Ipratropium 3 ml 10/28/23 17:41 10/28/23 18:01 Ipratropium/Albuterol Vial.Neb NEB 10/28/23 17:42 3 ml ONCE STA Administration Levofloxacin/Dextrose 500 mg in 100 mls @ 100 mls/hr 10/28/23 17:43 10/28/23 18:21 Levaquin 500 Mg/100 Ml D5w IV 10/28/23 18:42 100 mls/hr ONCE ONE Administration Ketorolac Tromethamine 30 mg 10/28/23 19:03 10/28/23 19:16 Ketorolac Tromethamine 30 Mg/Ml Vial IVP 10/28/23 19:04 30 mg ONCE STA Administration Levalbuterol HCl 1.25 mg 10/28/23 18:19 10/28/23 18:45 Levalbuterol Hcl 1.25 Mg/3 Ml Vial.Neb NEB 10/28/23 18:20 1.25 mg ONCE STA Administration Methylprednisolone Sodium Succinate 125 mg 10/28/23 17:43 10/28/23 18:21 Methylprednisolone Sod Succ/Pf 125 Mg/2 Ml Vial IVP 10/28/23 17:44 125 mg ONCE ONE Administration Vital Signs: Temp Pulse Resp BP Pulse Ox 10/28/23 17:34 97.8 F 125 H 26 H 94/55 L 98 Discharge Plan Discharge Patient Disposition: PLACED OBSERVATION Discharge Problem: Acute dyspnea, Acute exacerbation of chronic obstructive pulmonary disease, Community acquired pneumonia Did you review [place] BAD CREDIT COLLECTOR for ALL controlled substances?: Not Applicable ED Provider: ANTONINO CEJA Physician Progress Note: Patient history of COPD, asthma, chronic low back pain, depression, and hypertension complains of progressive dyspnea the past several days associated with a slight productive cough states she has no relief after taking nebulizer treatments at home. Patient's home oxygen dependent 2 L. Denies chest pain diaphoresis palpitations. Patient home medication list was reviewed EKG interpretation by myself is consistent with sinus tachycardia 117 left atrial limited left bundle block noted. Patient received IV fluids initial blood pressure of 95/55, bolus of 1 L 1 hour placed on sepsis protocol 70/30 mL 2 L over 2 hours. After 2 sets of blood cultures patient administered Levaquin 500 mg IV piggyback, Solu-Medrol 125 mg IV Patient seen by DuoNeb aerosol treatment Followed by Xopenex aerosol treatment 125 mg aerosol. Laboratory data CBC and CMP are within normal limit except for white blood cell count of 12,000. Lactic acid is 2.7, BNP is 37, D-dimer was 490 and a troponin 0.012 1819-clinic reassessment breath sounds have improved at the base increased air exchange, wheezing still persists. 1914-blood pressure is 108/65 pulse 103 saturation 96% respiratory 14 Portable chest x-ray interpretation per radiologist is consistent with the right lung is clear there is dextroscoliosis of the thoracic spine resulting in some volume loss and crowding of the pulmonary markings on the left there is no consolidation. There is increased interstitial prominence. Indeterminate for mild infiltrate first crowding of the markings secondary to scoliosis. There is no visible effusion or pneumothorax. Differential diagnosis 1) acute dyspnea 2) acute exacerbation of COPD 3) community-acquired pneumonia Discussed with hospitalist Fela Darden at 1924 for admit as observation.
[2023-10-28 17:54] LABS: ABG O2 HGB 88.9 % (95-100); ABG PH 7.47 (7.35-7.45); BEecf 6.1 (-2.0-3.0); HCO3 29.8 (21-28); MetHb 1.2 (0-1.5); TCO2 31.1 (19-24); sO2 94.5 % (94-98); tHb 14.8 g/dl (11.7-17.4)
[2023-10-28] MEDS: DUONEB NEB STA (18:01)
[2023-10-28 18:19] LABS: BASOPHILS # (AUTO) 0.1 K/uL (0-0.2); BASOPHILS % (AUTO) 0.6 % (0.0-3.0); EOSINOPHILS # (AUTO) 0.3 K/ul (0.0-0.7); EOSINOPHILS % (AUTO) 2.1 % (0.0-7.0); HEMATOCRIT 45.1 % (37.0-47.0); HEMOGLOBIN 14.2 g/dl (12.0-16.0); IMMATURE GRANULOCYTE # (AUTO) 0.1 (0.0-1.0); IMMATURE GRANULOCYTE % (AUTO) 0.9 % (0.0-5.0); LYMPHOCYTES # (AUTO) 2.3 K/uL (0.60-3.4); LYMPHOCYTES % (AUTO) 19.2 (10.0-50.0); MEAN CORPUSCULAR HEMOGLOBIN 29.2 pg (27.0-31.0); MEAN CORPUSCULAR HGB CONC 31.5 (31.8-35.4); MEAN CORPUSCULAR VOLUME 92.6 fl (81.0-99.0); MONOCYTES # (AUTO) 0.9 K/uL (0.4-2.0); MONOCYTES % (AUTO) 7.7 (0-10); NEUTROPHILS # (AUTO) 8.5 K/ul (2.0-6.9); NEUTROPHILS % (AUTO) 69.5 % (42.2-75.2); PLATELET COUNT 370 10^3/uL (140-440); RED BLOOD COUNT 4.87 10^6/ul (4.20-5.40); WHITE BLOOD COUNT 12.18 K/ul (4.6-10.2)
[2023-10-28] MEDS: LEVAQUIN 500 MG/100 ML D5W 500 MG/100 ML BAG IV ONE (18:21)
[2023-10-28] MEDS: SODIUM CHLORIDE 1,000 ML IV ONE ×3 (18:21→20:00)
[2023-10-28] MEDS: SOLU-MEDROL 125 MG IVP ONE (18:21)
--- NOTE | 2023-10-28 18:23 | DI ---
EXAM: FRONTAL VIEW OF THE CHEST. HISTORY: Cough and dyspnea. COMPARISON: None. FINDINGS: Cardiac silhouette is stable Right lung is clear. Dextroscoliosis thoracic spine results in some volume loss in crowding of pulmon paris markings on the left. No consolidation. There is increased interstitial prominence. Indetermin ate for mild infiltrate versus crowding of markings secondary to scoliosis. No visible effusion or pneumothorax. No acute osseous abnormality. IMPRESSION: 1. Crowding of markings versus interstitial infiltrate on the left. See above comments.
[2023-10-28 18:30] LABS: PROTHROMBIN TIME 9.6 SEC (9.3-11.0)
[2023-10-28 18:37] LABS: ALANINE AMINOTRANSFERASE 32.7 U/L (0-35); ALBUMIN 4.35 g/dL (3.5-5.0); ALKALINE PHOSPHATASE 105.8 U/L (38-126); BILIRUBIN,TOTAL 0.53 mg/dL (0.2-1.3); BLOOD UREA NITROGEN 13.6 mg/dL (7-17); CALCIUM 9.81 mg/dL (8.4-10.2); CARBON DIOXIDE 31.6 mmol/L (22-30.0); CHLORIDE 103.4 mmol/L (98-107); CREATININE 1.27 mg/dL (0.60-1.30); GLUCOSE 103.7 mg/dL (74-106); MAGNESIUM 1.78 mg/dL (1.6-2.3); POTASSIUM 3.89 mmol/L (3.5-5.1); SODIUM 141.6 mmol/L (134.5-145); TOTAL PROTEIN 7.29 g/dL (6.3-8.2)
[2023-10-28 18:45] LABS: MOLECULAR FLU A NEGATIVE BY NAAT (NEGATIVE); RSV MOLECULAR NEGATIVE BY NAAT (NEGATIVE); SARS COV-2 RNA RAPID NAAT NEGATIVE (NEGATIVE)
[2023-10-28] MEDS: XOPENEX 1.25 MG NEB STA (18:45)
[2023-10-28 18:46] LABS: MOLECULAR FLU B NEGATIVE BY NAAT (NEGATIVE)
[2023-10-28 18:49] LABS: TROPONIN I < 0.012 ng/ml (0.0000-0.120)
[2023-10-28] MEDS: TORADOL IVP STA (19:16)
[2023-10-28] MEDS ORDERED: ZOFRAN 4 MG/2 ML IVP PRN (19:55)
[2023-10-28] MEDS ORDERED: TYLENOL PO PRN (19:55)
[2023-10-28] MEDS: ROBITUSSIN AC PO PRN (22:27)
[2023-10-28] MEDS: DUONEB NEB ONE (22:33)
[2023-10-28 22:36] VITALS: BMI 29.0
[2023-10-28] MEDS: SOLU-MEDROL 40 MG IVP SCH (22:49)
[2023-10-28] MEDS: ELAVIL PO SCH (23:04)
[2023-10-28] MEDS: SYMBICORT 160-4.5 MCG INHALER IH SCH (23:04)
[2023-10-28] MEDS: NEURONTIN PO SCH (23:04)
[2023-10-28] MEDS: FLEXERIL PO SCH (23:19)
[2023-10-29 05:11] LABS: BASOPHILS % (AUTO) 0.1 % (0.0-3.0); HEMATOCRIT 40.3 % (37.0-47.0); HEMOGLOBIN 12.5 g/dl (12.0-16.0); IMMATURE GRANULOCYTE # (AUTO) 0.1 (0.0-1.0); IMMATURE GRANULOCYTE % (AUTO) 0.8 % (0.0-5.0); LYMPHOCYTES # (AUTO) 0.7 K/uL (0.60-3.4); LYMPHOCYTES % (AUTO) 6.8 (10.0-50.0); MEAN CORPUSCULAR VOLUME 93.5 fl (81.0-99.0); MONOCYTES # (AUTO) 0.1 K/uL (0.4-2.0); NEUTROPHILS # (AUTO) 9.4 K/ul (2.0-6.9); NEUTROPHILS % (AUTO) 91.3 % (42.2-75.2); PLATELET COUNT 279 10^3/uL (140-440); RDW COEFFICIENT OF VARIATION 16.7 % (11.6-14.8); RED BLOOD COUNT 4.31 10^6/ul (4.20-5.40); WHITE BLOOD COUNT 10.24 K/ul (4.6-10.2)
[2023-10-29 05:32] LABS: ALANINE AMINOTRANSFERASE 31.3 U/L (0-35); ALBUMIN 3.67 g/dL (3.5-5.0); ALKALINE PHOSPHATASE 79.2 U/L (38-126); ASPARTATE AMINO TRANSFERASE 27.3 U/L (14-36); BILIRUBIN,TOTAL 0.34 mg/dL (0.2-1.3); BLOOD UREA NITROGEN 18.4 mg/dL (7-17); CALCIUM 8.11 mg/dL (8.4-10.2); CHLORIDE 108.3 mmol/L (98-107); CREATININE 1.09 mg/dL (0.60-1.30); GLUCOSE 140.1 mg/dL (74-106); POTASSIUM 4.37 mmol/L (3.5-5.1); SODIUM 138.4 mmol/L (134.5-145); TOTAL PROTEIN 6.3 g/dL (6.3-8.2)
[2023-10-29] MEDS: DUONEB NEB PRN (05:38)
[2023-10-29] MEDS: SPIRIVA IH SCH (08:42)
[2023-10-29] MEDS: LEVAQUIN 750 MG/150 ML D5W 750 MG/150 ML BAG IV SCH (08:43)
[2023-10-29] MEDS: CALCIUM 500 + VIT D 5 MCG (200 IU) TABLET PO SCH (08:44)
[2023-10-29] MEDS: BUSPAR PO SCH (08:44)
[2023-10-29] MEDS: PROZAC PO SCH (08:45)
[2023-10-29] MEDS: LOVENOX SUBCUT SCH (08:46)
[2023-10-29] MEDS: MOBIC PO SCH (08:50)
[2023-10-29] MEDS: NORCO 7.5-325 PO PRN (08:53)
[2023-10-29] MEDS: PROTONIX PO SCH (09:03)
--- NOTE | 2023-10-29 09:44 | PCM ---
Date of Service Date Seen by Provider: 10/29/23 Time Seen by Provider: 08:30 Admit Day/Time Admission Date: 10/28/23 Reason for Admission Chief Complaint: PNA,COPD Hospital Provider Hospital Provider: SANJUANA REBOLLAR, [facility] [place] Primary Care Physician Primary Care Physician: TRISTAN HURT History of Present Illness History of Present Illness: 52 yo female presents to the ER with shortness of breath. States that over the past 2 months she has been miserable. Has seen her PCP multiple times with no relief. This episode started a couple days ago and has persisted. Requires 2L oxygen at all times. Has not required additional oxygen at this time. Found to be in COPD exacerbation with questionable pneumonia on chest x-ray. States she has been using her nebs and inhalers at home as previously prescribed. Feels as if nothing is working. Denies fever, chest pain, n/v/d. Case Discussed With Case Discussed With: Patient's case was discussed with the ER Physicians, Dr. Worthy. [facility] Medical History Vitamin B12 deficiency E53.8 - Deficiency of other specified B group vitamins (ICD-10) Osteoporosis M81.0 - Age-related osteoporosis without current pathological fracture (ICD- 10) Severe scoliosis 58 degrees M41.9 - Scoliosis, unspecified (ICD-10) Chronic back pain M54.9 - Dorsalgia, unspecified (ICD-10) Generalized anxiety disorder (03/12/18) F41.1 - Generalized anxiety disorder (ICD-10) Asthma J45.909 - Unspecified asthma, uncomplicated (ICD-10) Hypertension I10 - Essential (primary) hypertension (ICD-10) Chronic obstructive pulmonary disease J44.9 - Chronic obstructive pulmonary disease, unspecified (ICD-10) Suicide attempt T14.91XA - Suicide attempt, initial encounter (ICD-10) Arthritis Back M19.90 - Unspecified osteoarthritis, unspecified site (ICD-10) History of seasonal allergies Z88.9 - Allergy status to unspecified drugs, medicaments and biological substances status (ICD-10) Surgical History neck surgery 2001 History of section Z98.891 - History of uterine scar from previous surgery (ICD-10) Status post appendectomy Z90.49 - Acquired absence of other specified parts of digestive tract (ICD- 10) Family History Grandfather/Grandmother COPD (chronic obstructive pulmonary disease) Asthma SISTER Cerebrovascular accident Mother Anxiety Social History Smoking and tobacco status: Current every day smoker Tobacco type: cigarettes Smoking cigarettes per day: 4 Tobacco: How many years used: 35 Quit status: considering quitting Second hand smoke exposure: Yes Smoking risk assessment performed: No Alcohol intake: current Alcohol intake frequency: holidays/special occasions only Counseling given: No Substance use type: does not use Counseling given: No Diamante/restorationism: Bahai Special diamante needs: No Agree to transfusion: Yes Adopted: No Caregiver/support person: Yes Foster care: No Household members: other Other Household Members: sister Housing: apartment Marital status: X LEGALLY Lives independently: Yes Number of children: 3 Number of grandchildren: 0 Highest education level completed: high school graduate Financial difficulty paying for basics: not applicable service: No senior care: No Current occupational status: unemployed Current occupation: applying for disability due to back pain Current occupational exposures/hazards: No Pets and animals: No Leisure activites: other History of recent travel: No Sexually active: No Do you think of yourself as: straight/heterosexual Current gender identity: female Seatbelt use: always Helmet use: No Drives intoxicated or rides with intoxicated compactor driver: No Water heater temperature set < 120 degrees: Yes Working smoke detector in home: Yes Fire extinguisher in home: Yes Carbon monoxide detector in home: Yes Firearms in home: No Allergies Allergies Allergy/AdvReac Type Severity Reaction Status Date / Time Penicillins AdvReac Severe Rash Verified 10/28/23 18:35 Current Medications Home Medications blood pressure monitor (Blood Pressure Kit) #1 ea 10/20/21 [Rx Confirmed 10/28/23 Last Taken Unknown] blood pressure monitor #1 ea 12/06/21 [Rx Confirmed 10/28/23 Last Taken Unknown] hydrocodone 7.5 mg-acetaminophen 325 mg tablet 1 tab PO BID PRN Analgesia 12/07/21 [History Confirmed 10/28/23 Last Taken 10/28/23 08:00] buspirone 15 mg tablet 15 mg PO TID #90 tabs 02/13/22 [Rx Confirmed 10/28/23 Last Taken 10/28/23 12:45] albuterol sulfate 90 mcg/actuation aerosol inhaler (ProAir HFA) 2 puff inhalatio n Q4-6H PRN shortness of breath or wheezing #8.5 grams 03/08/22 [Rx Confirmed 10/28/23 Last Taken 10/28/23] budesonide-formoterol HFA 160 mcg-4.5 mcg/actuation aerosol inhaler (Symbicort) See Rx Instructions .Route .COMPLEX #10.2 blisters 03/08/22 [Rx Confirmed 10/28/23 Last Taken 10/28/23 09:00] lisinopril 40 mg tablet 40 mg PO QDAY #30 tabs 03/08/22 [Rx Confirmed 10/28/23 Last Taken 10/28/23 08:00] tiotropium bromide 18 mcg capsule with inhalation device (Spiriva with HandiHaler) See Rx Instructions .Route .COMPLEX #30 blisters 04/06/22 [Rx Confirmed 10/28/23 Last Taken 10/28/23 08:00] pantoprazole 40 mg tablet,delayed release See Rx Instructions .Route .COMPLEX #30 tabs 05/04/22 [Rx Confirmed 10/28/23 Last Taken 10/28/23 08:00] alendronate 70 mg tablet 70 mg PO WEEKLY 10/17/22 [History Confirmed 10/28/23 Last Taken 10/22/23] calcium 600 mg capsule 600 mg PO DAILY 10/17/22 [History Confirmed 10/28/23 Last Taken 10/28/23 09:00] clonidine HCl 0.1 mg tablet 0.1 mg PO BID PRN hypertensive emergency 10/17/22 [History Confirmed 10/28/23 Last Taken 10/17/22] ergocalciferol (vitamin D2) 1,250 mcg (50,000 unit) capsule 50,000 unit PO WEEKLY 10/17/22 [History Confirmed 10/28/23 Last Taken 10/22/23] fluoxetine 40 mg capsule (Prozac) 20 mg PO QAM 10/17/22 [History Confirmed 10/28/23 Last Taken 10/28/23 08:00] meloxicam 15 mg tablet 15 mg PO DAILY 10/17/22 [History Confirmed 10/28/23 Last Taken 10/28/23 08:00] gabapentin 400 mg capsule 400 mg PO QID pain 12/10/22 [History Confirmed 10/28/23 Last Taken 10/28/23 12:00] amlodipine 2.5 mg tablet 2.5 mg PO DAILY PRN blood pressure systolic 04/30/23 [History Confirmed 10/28/23 Last Taken 10/15/23] cyclobenzaprine 5 mg tablet 2.5 mg PO TID 04/30/23 [History Confirmed 10/28/23 Last Taken 10/28/23 12:00] meclizine 25 mg chewable tablet 25 mg PO BID PRN dizziness 04/30/23 [History Confirmed 10/28/23 Last Taken 10/27/23] albuterol sulfate 2.5 mg/3 mL (0.083 %) solution for nebulization 2.5 mg (3 mL) inhalation Q4-6H PRN shortness of breath or wheezing #90 mL 09/12/23 [Rx Confirmed 10/28/23 Last Taken 10/28/23] amitriptyline 50 mg tablet 50 mg PO .nightly 10/28/23 [History Confirmed 10/28/23 Last Taken 10/27/23] Home Acetaminophen (Acetaminophen 325 Mg Tablet) 650 mg PO Q4H PRN PRN Reason: Mild Pain Hydrocodone Bitart/Acetaminophen (Hydrocodone Bit/Acetaminophen 7.5/325 Mg Tablet) 1 tab PO BID PRN PRN Reason: MODERATE PAIN Last Admin: 10/29/23 08:53 Dose: 1 tab Albuterol/Ipratropium (Ipratropium/Albuterol Vial.Neb) 3 ml NEB RTQ4H PRN PRN Reason: Wheezing Last Admin: 10/29/23 05:38 Dose: 3 ml Amitriptyline HCl (Amitriptyline Hcl 25 Mg Tablet) 50 mg PO BEDTIME [facility] Last Admin: 10/28/23 23:04 Dose: 50 mg Budesonide/Formoterol Fumarate (Budesonide/Formoterol Fumarate 160/4.5 Mcg Inhaler) 2 puff IH BID [facility] Last Admin: 10/29/23 08:41 Dose: 2 puff Buspirone HCl (Buspirone Hcl 10 Mg Tablet) 15 mg PO TID [facility] Last Admin: 10/29/23 08:44 Dose: 15 mg Calcium/Vitamin D (Calcium Carbonate/Vitamin D3 500 Mg/5 Mcg(200iu) 1 Each Tablet) 1 each PO DAILY [facility] Last Admin: 10/29/23 08:44 Dose: 1 each Cyclobenzaprine HCl (Cyclobenzaprine Hcl 10 Mg Tablet) 2.5 mg PO TID [facility] Last Admin: 10/29/23 08:45 Dose: 2.5 mg Enoxaparin Sodium (Enoxaparin Sodium 40 Mg/0.4 Ml Syr) 40 mg SUBCUT DAILY [facility] Last Admin: 10/29/23 08:46 Dose: 40 mg Fluoxetine HCl (Fluoxetine Hcl 20 Mg Capsule) 20 mg PO QAM [facility] Last Admin: 10/29/23 08:45 Dose: 20 mg Fluticasone Propionate (Fluticasone Propionate 110 Mcg Inh) 1 puff IH DAILY [facility] Gabapentin (Gabapentin 100 Mg Capsule) 100 mg PO QID [facility] Last Admin: 10/29/23 08:45 Dose: 100 mg Sodium Chloride (Sodium Chloride) 1,000 mls @ 50 mls/hr IV .Q20H ONE Stop: 10/29/23 13:42 Last Admin: 10/28/23 18:21 Dose: 50 mls/hr Levofloxacin/Dextrose (Levaquin 750 Mg/150 Ml D5w) 750 mg in 150 mls @ 100 mls/hr IV DAILY [facility] Stop: 11/01/23 08:59 Last Admin: 10/29/23 08:43 Dose: 100 mls/hr Meloxicam (Meloxicam 7.5 Mg Tablet) 15 mg PO DAILYWM2 [facility] Last Admin: 10/29/23 08:50 Dose: 15 mg Methylprednisolone Sodium Succinate (Methylprednisolone Sod Succ/Pf 40 Mg/Ml Vial) 40 mg IVP Q8HR [facility] Last Admin: 10/29/23 05:16 Dose: 40 mg Ondansetron HCl (Ondansetron Hcl/Pf 4 Mg/2 Ml Sdv) 4 mg IVP Q6H PRN PRN Reason: Nausea / Vomiting Pantoprazole Sodium (Pantoprazole Sodium 40 Mg Tablet.Dr) 40 mg PO QDAC2 [facility] Last Admin: 10/29/23 09:03 Dose: 40 mg Sodium Chloride (0.9% Sodium Chloride 10 Ml Disp.Syrin) 1 syr IVF Q8HR [facility] Last Admin: 10/29/23 05:36 Dose: 1 syr Tiotropium [place] (Tiotropium [place] 18 Mcg Cap.W.Dev) 1 cap IH DAILY [facility] Last Admin: 10/29/23 08:42 Dose: 1 cap Discontinued Medications Albuterol/Ipratropium (Ipratropium/Albuterol Vial.Neb) 3 ml NEB ONCE STA Stop: 10/28/23 17:42 Last Admin: 10/28/23 18:01 Dose: 3 ml Levofloxacin/Dextrose (Levaquin 500 Mg/100 Ml D5w) 500 mg in 100 mls @ 100 mls/hr IV ONCE ONE Stop: 10/28/23 18:42 Last Admin: 10/28/23 18:21 Dose: 100 mls/hr Sodium Chloride (Sodium Chloride) 1,000 mls @ 1,000 mls/hr IV BOLUS ONE Stop: 10/28/23 20:27 Last Infusion: 10/28/23 19:45 Dose: Infused Sodium Chloride (Sodium Chloride) 1,000 mls @ 1,000 mls/hr IV BOLUS ONE Stop: 10/28/23 21:01 Last Infusion: 10/28/23 21:21 Dose: Infused Ketorolac Tromethamine (Ketorolac Tromethamine 30 Mg/Ml Vial) 30 mg IVP ONCE STA Stop: 10/28/23 19:04 Last Admin: 10/28/23 19:16 Dose: 30 mg Levalbuterol HCl (Levalbuterol Hcl 1.25 Mg/3 Ml Vial.Neb) 1.25 mg NEB ONCE STA Stop: 10/28/23 18:20 Last Admin: 10/28/23 18:45 Dose: 1.25 mg Methylprednisolone Sodium Succinate (Methylprednisolone Sod Succ/Pf 125 Mg/2 Ml Vial) 125 mg IVP ONCE ONE Stop: 10/28/23 17:44 Last Admin: 10/28/23 18:21 Dose: 125 mg Non-Formulary Medication (Calcium) 600 mg PO DAILY [facility] Opioid Naive vs. Tolerant Does Patient Take Opioids?: Yes Is Patient Opioid Naive?: No What is Opioid Naive?: *Opioid Naive implies the patient is not already taking opioids or not chronically receiving opioids on a daily basis. *PRN dosing is not "usually" associated with tolerance. *Patients are at higher risk of over-sedation and aspiration. Is Patient Opioid Tolerant?: No What is Opioid Tolerant?: *Opioid Tolerance implies less than the expected response to an opioid. *Acquired tolerance is defined by the patient taking 60mg of oral morphine daily (or equianalgesic dose of another opioid) for 1 week or more. *Often associated with chronic pain. *May take more than usual dose to achieve desired pain control. Review of Systems Constitutional: Reports No symptoms Head: Reports Normocephalic Eyes: Reports No symptoms Ears: Reports No symptoms Nose: Reports No symptoms Mouth: Reports No symptoms Throat: Reports No symptoms Cardiovascular: Reports No symptoms Respiratory: Reports Cough and Shortness of air Gastrointestinal: Reports No symptoms Genitourinary: Reports No Symptoms Musculoskeletal: Reports No symptoms Endocrine: Reports No symptoms Hematology: Reports No symptoms Immunology: Reports No symptoms Neurological: Reports No symptoms Psychiatric: Reports No symptoms Physical examination Most Recent Vital Signs: Most Recent Vital Signs Temperature 97.8 F 10/29/23 05:06 Temperature Source Temporal Artery Scan 10/29/23 05:06 Temperature Source Temporal Artery Scan 10/28/23 17:34 Pulse Rate 110 H 10/29/23 08:00 Respiratory Rate 22 H 10/29/23 08:00 Blood Pressure 137/94 H 10/29/23 05:06 Blood Pressure Mean 108 10/29/23 05:06 Blood Pressure Left Arm 104/68 10/28/23 20:10 Blood Pressure Location Right Arm 10/29/23 05:06 Blood Pressure Position Supine 10/29/23 05:06 O2 Sat by Pulse Oximetry 97 10/29/23 05:27 Oxygen Delivery Method Nasal Cannula 10/29/23 08:00 Oxygen Flow Rate 2 10/29/23 08:00 Height 5 ft 1 in 10/28/23 20:10 Weight 153 lb 9 oz 10/28/23 20:10 Telemetry Type Remote Telemetry 10/29/23 07:00 Telemetry Monitoring Continues 10/29/23 07:00 Telemetry Heart Rate 102 H 10/29/23 07:00 Telemetry SPO2 95 10/29/23 07:00 EKG OR Interval 0.16 10/29/23 07:00 EKG QRS Interval 0.14 H 10/29/23 07:[address] with BBB 10/29/23 07:00 Appearance: Positive No Apparent Distress, Alert and Oriented x3 and Ill- Appearing Skin: Positive Warm HEENT: Positive Normocephalic, Atraumatic and PERRLA Neck: Positive Supple and Midline Trachea Chest/Lungs: Positive Symmetrical With Equal Breath Sounds, Rhonci, Wheezes and Good Air Movement all 4 Lung Chance Heart: Positive RRR and Pulses Normal GI/: Positive Soft, Nontender, Bowel Sounds Normal and No Distention Musculoskeletal: Positive Not Examined Extremities: Positive Intact Peripheral Pulses, Stable Joints Without Laxity and Good ROM in All Joints Neurological: Positive Sensation Intact, Motor intact, Alert, Oriented and Muscle Strength 5/5 in Upper and Lower Extremities Bilaterally Labs This Visit Labs This Visit: Labs This Visit 10/28/23 10/28/23 10/28/23 17:45 18:00 18:15 WBC 12.18 H RBC 4.87 Hgb 14.2 Hct 45.1 MCV 92.6 MCH 29.2 MCHC 31.5 L RDW Coeff of Jj 17.0 H Plt Count 370 Immature Gran % (Auto) 0.9 Neut % (Auto) 69.5 Lymph % (Auto) 19.2 [place] % (Auto) 7.7 Eos % (Auto) 2.1 Baso % (Auto) 0.6 Neut # (Auto) 8.5 H Lymph # (Auto) 2.3 [place] # (Auto) 0.9 Eos # (Auto) 0.3 Baso # (Auto) 0.1 Immature Gran # (Auto) 0.1 PT 9.6 INR 0.92 Puncture Site [place] Excess 6.1 H O2 Saturation 94.5 ABG pH 7.47 H ABG pCO2 41.0 ABG pO2 68.0 L ABG HCO3 29.8 H ABG Total CO2 31.1 H Huy Test Pos Hemoglobin 1.2 Oxyhemoglobin 88.9 L Carboxyhemoglobin 7.0 H Total Hemoglobin 14.8 O2 Delivery Device Cannula Oxygen Liter Flow 2.00 Sodium 141.6 Potassium 3.89 Chloride 103.4 Carbon Dioxide 31.6 H Anion Gap 10.49 BUN 13.6 Creatinine 1.27 Estimated GFR (MDRD) 44.00 BUN/Creatinine Ratio 10.70 Glucose 103.7 Lactic Acid 2.76 H Calcium 9.81 Magnesium 1.78 Total Bilirubin 0.53 AST 27.0 ALT 32.7 Alkaline Phosphatase 105.8 Troponin I < 0.012 NT-Pro-B Natriuret Pep 37 Total Protein 7.29 Albumin 4.35 Globulin 2.94 Albumin/Globulin Ratio 1.47 D-Dimer 490.77 Influ A Molecular Assay Negative by naat Influ B Molecular Assay Negative by naat RSV Antigen Negative by naat SARS CoV-2 RNA Rapid OBDULIO Negative 10/28/23 10/29/23 21:55 05:01 WBC 10.24 H RBC 4.31 Hgb 12.5 Hct 40.3 MCV 93.5 MCH 29.0 MCHC 31.0 L RDW Coeff of Jj 16.7 H Plt Count 279 Immature Gran % (Auto) 0.8 Neut % (Auto) 91.3 H Lymph % (Auto) 6.8 L [place] % (Auto) 1.0 Eos % (Auto) 0.0 Baso % (Auto) 0.1 Neut # (Auto) 9.4 H Lymph # (Auto) 0.7 [place] # (Auto) 0.1 L Eos # (Auto) 0.0 Baso # (Auto) 0.0 Immature Gran # (Auto) 0.1 PT INR Puncture Site Base Excess O2 Saturation ABG pH ABG pCO2 ABG pO2 ABG HCO3 ABG Total CO2 Huy Test Hemoglobin Oxyhemoglobin Carboxyhemoglobin Total Hemoglobin O2 Delivery Device Oxygen Liter Flow Sodium 138.4 Potassium 4.37 Chloride 108.3 H Carbon Dioxide 27.0 Anion Gap 7.47 BUN 18.4 H Creatinine 1.09 Estimated GFR (MDRD) 52.00 BUN/Creatinine Ratio 16.88 Glucose 140.1 H Lactic Acid 2.65 H Calcium 8.11 L Magnesium Total Bilirubin 0.34 AST 27.3 ALT 31.3 Alkaline Phosphatase 79.2 D Troponin I NT-Pro-B Natriuret Pep Total Protein 6.30 Albumin 3.67 Globulin 2.63 Albumin/Globulin Ratio 1.39 D-Dimer Influ A Molecular Assay Influ B Molecular Assay RSV Antigen SARS CoV-2 RNA Rapid OBDULIO Imaging Imaging: EXAM: FRONTAL VIEW OF THE CHEST. FINDINGS: Cardiac silhouette is stable Right lung is clear. Dextroscoliosis thoracic spine results in some volume loss in crowding of pulmonary markings on the left. No consolidation. There is increased interstitial prominence. Indeterminate for mild infiltrate versus crowding of markings secondary to scoliosis. No visible effusion or pneumothorax. No acute osseous abnormality. IMPRESSION: 1. Crowding of markings versus interstitial infiltrate on the left. See above comments. Review Statement Review Statement: I have independently reviewed and interpreted the labs/EKGs/imaging that were ordered by the ER provider. I have reviewed all outside records that are available currently in our EMR including imaging/notes/labs from previous visits. Plan Plan: 1. COPD Exacerbation - on home O2 currently, lung sounds very coarse; levaquin, steroids, nebs 2. Tachycardia - persistent since admission, checking EKG, and CTA of chest to r/o PE 3. Hypertension - chronic, continue home medications 4. GERD - chronic, continue home medications 5. Chronic back pain - continue home medications DVT Prophylaxis: Lovenox Time Spent: Greater than 80 minutes spent with patient, 50% of the time spent with this patient was devoted to counseling and coordination of care. [facility] minutes spent discussing advance care planning. Smoking Cessation: 5 minutes spent discussing smoking cessation. Disposition: Admit to: Med/Surg Observation - admit to inpatient today due to sustained tachycardia and unchanged condition Full Code. Discussed Plan of Care with Dr. William Sousa. Medications Medication Orders: Medications Ordered Category Date Time Status 0.9 % Sodium Chloride [Saline Flush] Meds 10/29/23 05:25 Active 1 syr IVF Q8HR Acetaminophen [Tylenol] Meds 10/28/23 19:55 Active 650 mg PO Q4H PRN Amitriptyline HCl [Elavil] Meds 10/28/23 22:00 Active 50 mg PO BEDTIME Budesonide/Formoterol Fumarate [Symbicort 160-4.5 Mcg Meds 10/28/23 22:00 Active Inhaler] 2 puff IH BID Buspirone HCl [Buspar] Meds 10/29/23 09:00 Active 15 mg PO TID Calcium Carbonate/Vitamin D3 [Calcium 500 + Vit D 5 Mcg Meds 10/29/23 09:00 Active (200 Iu) Tablet] 1 each PO DAILY Codeine Phosphate/Guaifenesin [Robitussin AC] Meds 10/28/23 21:55 Active 5 ml PO Q6HR PRN Cyclobenzaprine HCl [Flexeril] Meds 10/29/23 00:15 Active 2.5 mg PO TID Enoxaparin Sodium [Lovenox] Meds 10/29/23 09:00 Active 40 mg SUBCUT DAILY Fluoxetine HCl [Prozac] Meds 10/29/23 09:00 Active 20 mg PO QAM Fluticasone Propionate 110 Mcg [Flovent Hfa 110 Mcg] Meds 10/30/23 09:00 Ordered 1 puff IH DAILY Gabapentin [Neurontin] Meds 10/28/23 23:30 Active 100 mg PO QID Hydrocodone Bit/Acetaminophen [[place] 7.5-325] Meds 10/28/23 21:55 Active 1 tab PO BID PRN Ipratropium/Albuterol Neb [Duoneb] Meds 10/28/23 19:55 Active 3 ml NEB RTQ4H PRN Levofloxacin/D5w [Levaquin 750 mg/150 ml D5w] Meds 10/29/23 09:00 Active 750 mg in 150 ml IV DAILY Meloxicam [Mobic] Meds 10/29/23 08:00 Active 15 mg PO DAILYWM2 Methylprednisolone Sod Succ/Pf [Solu-Medrol 40 mg] Meds 10/28/23 22:00 Active 40 mg IVP Q8HR Ondansetron HCl/Pf [Zofran 4 mg/2 ml] Meds 10/28/23 19:55 Active 4 mg IVP Q6H PRN Pantoprazole Sodium [Protonix] Meds 10/29/23 09:00 Active 40 mg PO QDAC2 Sodium Chloride 0.9% [Sodium Chloride] 1,000 ml Meds 10/28/23 17:43 Active IV 50 mls/hr Tiotropium [place] [Spiriva] Meds 10/29/23 09:00 Active 1 cap IH DAILY
--- NOTE | 2023-10-29 13:48 | CT ---
EXAM: CT ANGIOGRAPHY CHEST (PE PROTOCOL) HISTORY: Shortness of breath, tachycardia TECHNIQUE: CTA chest with intravenous contrast. PE protocol. Multiplanar images were provided with MIP images and 3-D reconstructions. COMPARISON: 04/30/2023 FINDINGS: No pulmonary arterial thromboembolism identified. Thoracic aorta has mild to moderate ath erosclerotic disease with normal caliber. Cardiomegaly is present. No pericardial effusion. There are discoid consolidations mainly within the left lung which may represent atelectasis as the patient has moderately severe scoliosis, although cannot completely exclude regions of pneumonia. There is no pneumothorax, vascular congestion or pleural fluid. IMPRESSION: 1. No pulmonary arterial thromboembolism identified. 2. Atherosclerotic disease. Cardiomegaly. 3. There are discoid consolidations mainly within the left lung which may represent atelectasis as t he patient has moderately severe thoracic scoliosis. Cannot exclude regions of pneumonia. All CT scans are performed using dose optimization techniques as appropriate to the performed exam an d include at least one of the following: Automated exposure control, adjustment of the mA and/or kV according t o size, and the use of iterative reconstruction technique.
[2023-10-30 05:20] LABS: BASOPHILS % (AUTO) 0.1 % (0.0-3.0); HEMOGLOBIN 12.3 g/dl (12.0-16.0); IMMATURE GRANULOCYTE # (AUTO) 0.2 (0.0-1.0); IMMATURE GRANULOCYTE % (AUTO) 0.9 % (0.0-5.0); LYMPHOCYTES # (AUTO) 0.8 K/uL (0.60-3.4); LYMPHOCYTES % (AUTO) 3.5 (10.0-50.0); MEAN CORPUSCULAR HEMOGLOBIN 29.4 pg (27.0-31.0); MEAN CORPUSCULAR HGB CONC 31.5 (31.8-35.4); MEAN CORPUSCULAR VOLUME 93.1 fl (81.0-99.0); MONOCYTES % (AUTO) 4.6 (0-10); NEUTROPHILS # (AUTO) 19.2 K/ul (2.0-6.9); NEUTROPHILS % (AUTO) 90.9 % (42.2-75.2); PLATELET COUNT 280 10^3/uL (140-440); RDW COEFFICIENT OF VARIATION 16.7 % (11.6-14.8); RED BLOOD COUNT 4.19 10^6/ul (4.20-5.40); WHITE BLOOD COUNT 21.14 K/ul (4.6-10.2)
[2023-10-30 05:34] LABS: ALANINE AMINOTRANSFERASE 26.6 U/L (0-35); ALBUMIN 3.7 g/dL (3.5-5.0); ALKALINE PHOSPHATASE 80.8 U/L (38-126); ASPARTATE AMINO TRANSFERASE 19.3 U/L (14-36); BILIRUBIN,TOTAL 0.32 mg/dL (0.2-1.3); BLOOD UREA NITROGEN 21.9 mg/dL (7-17); CALCIUM 8.63 mg/dL (8.4-10.2); CARBON DIOXIDE 24.2 mmol/L (22-30.0); CHLORIDE 107.4 mmol/L (98-107); CREATININE 0.88 mg/dL (0.60-1.30); GLUCOSE 130.5 mg/dL (74-106); POTASSIUM 4.31 mmol/L (3.5-5.1); SODIUM 136.6 mmol/L (134.5-145); TOTAL PROTEIN 6.22 g/dL (6.3-8.2)
[2023-10-30 08:27] VITALS: PULSE 106
[2023-10-30] MEDS ORDERED: FLOVENT HFA 110 MCG IH SCH (09:00)
--- NOTE | 2023-10-30 09:24 | DCSUM ---
Admission Date Admission Date: 10/28/23 Discharge Date Discharge Date: 10/30/23 Admission Diagnosis Admission Diagnosis: 1. COPD Exacerbation 2. Tachycardia 3. Hypertension 4. GERD 5. Chronic back pain Discharge Diagnosis Discharge Diagnosis: 1. Community Acquired Pneumonia - Improving 2. COPD exacerbation - Improving 3. Tachycardia - Improved 4. Hypertension - Chronic, stable 5. GERD - Chronic, stable 6. Chronic back pain - Chronic, stable Hospital Provider Hospital Provider: SANJUANA REBOLLAR, [facility] Primary Care Physician: TRISTAN HURT Summary of History and Physical Summary of History and Physical: 52 yo female presents to the ER with shortness of breath. States that over the past 2 months she has been miserable. Has seen her PCP multiple times with no relief. This episode started a couple days ago and has persisted. Requires 2L oxygen at all times. Has not required additional oxygen at this time. Found to be in COPD exacerbation with questionable pneumonia on chest x-ray. States she has been using her nebs and inhalers at home as previously prescribed. Feels as if nothing is working. Denies fever, chest pain, n/v/d. Hospital Course Subjective: Treated initially for COPD exacerbation with levaquin, steroids, and nebs. Patient had persistent tachycardia up into 120s at times. CTA completed to r/o PE and showed diffuse pneumonia. Yesterday, patient breath sounds were severely diminished and unable to get a deep breath. With treatment, today patient is feeling much better. Lung sounds no longer diminished and has expiratory wheezing present. Cough has improved as well. Appearance: Pleasant, No Apparent Distress and Alert HEENT: MMM, Supple and No JVD CVS: No Murmur, No Rubs and No Gallop Abdomen: Soft, Non-Tender and No Distention Respiratory: Other (expiratory wheezing throughout) Extremities: No Edema Vital Signs: Most Recent Vital Signs Temperature 97.5 F L 10/30/23 05:55 Temperature Source Temporal Artery Scan 10/30/23 05:55 Temperature Source Temporal Artery Scan 10/28/23 17:34 Pulse Rate 106 H 10/30/23 08:00 Respiratory Rate 20 10/30/23 08:00 Blood Pressure 154/81 H 10/30/23 05:55 Blood Pressure Mean 105 10/30/23 05:55 Blood Pressure Left Arm 104/68 10/28/23 20:10 Blood Pressure Location Left Arm 10/30/23 05:55 Blood Pressure Position Sitting 10/30/23 05:55 O2 Sat by Pulse Oximetry 97 10/30/23 05:55 Oxygen Delivery Method Nasal Cannula 10/30/23 08:00 Oxygen Flow Rate 2 10/30/23 08:00 Height 5 ft 1 in 10/28/23 20:10 Weight 153 lb 9 oz 10/28/23 20:10 Telemetry Type Remote Telemetry 10/30/23 01:00 Telemetry Monitoring Continues 10/30/23 01:00 Telemetry Heart Rate 102 H 10/30/23 01:00 Telemetry SPO2 97 10/30/23 01:00 EKG OR Interval 0.18 10/30/23 01:00 EKG QRS Interval 0.08 10/30/23 01:[address] 10/30/23 01:00 Imaging: EXAM: CT ANGIOGRAPHY CHEST (PE PROTOCOL) FINDINGS: No pulmonary arterial thromboembolism identified. Thoracic aorta has mild to moderate atherosclerotic disease with normal caliber. Cardiomegaly is present. No pericardial effusion. There are discoid consolidations mainly within the left lung which may represent atelectasis as the patient has moderately severe scoliosis, although cannot completely exclude regions of pneumonia. There is no pneumothorax, vascular congestion or pleural fluid. IMPRESSION: 1. No pulmonary arterial thromboembolism identified. 2. Atherosclerotic disease. Cardiomegaly. 3. There are discoid consolidations mainly within the left lung which may represent atelectasis as the patient has moderately severe thoracic scoliosis. Cannot exclude regions of pneumonia. EXAM: FRONTAL VIEW OF THE CHEST. FINDINGS: Cardiac silhouette is stable Right lung is clear. Dextroscoliosis thoracic spine results in some volume loss in crowding of pulmonary markings on the left. No consolidation. There is increased interstitial prominence. Indeterminate for mild infiltrate versus crowding of markings secondary to scoliosis. No visible effusion or pneumothorax. No acute osseous abnormality. IMPRESSION: 1. Crowding of markings versus interstitial infiltrate on the left. See above comments. Lab Results Last 24 Hours: 10/30/23 05:07 WBC 21.14 H D RBC 4.19 L Hgb 12.3 Hct 39.0 MCV 93.1 MCH 29.4 MCHC 31.5 L RDW Coeff of Jj 16.7 H Plt Count 280 Immature Gran % (Auto) 0.9 Neut % (Auto) 90.9 H Lymph % (Auto) 3.5 L [place] % (Auto) 4.6 Eos % (Auto) 0.0 Baso % (Auto) 0.1 Neut # (Auto) 19.2 H Lymph # (Auto) 0.8 [place] # (Auto) 1.0 Eos # (Auto) 0.0 Baso # (Auto) 0.0 Immature Gran # (Auto) 0.2 Sodium 136.6 Potassium 4.31 Chloride 107.4 H Carbon Dioxide 24.2 Anion Gap 9.31 BUN 21.9 H Creatinine 0.88 Estimated GFR (MDRD) 67.00 BUN/Creatinine Ratio 24.88 Glucose 130.5 H Calcium 8.63 Total Bilirubin 0.32 AST 19.3 ALT 26.6 Alkaline Phosphatase 80.8 Total Protein 6.22 L Albumin 3.70 Globulin 2.52 Albumin/Globulin Ratio 1.46 Discharge Instructions Discharge Planning: Discharge Planning > 40 minutes If patient is discharged with left ventricular systolic dysfunction: NA Discharged with a beta lorraine? [] If no, why not? [] Discharged with an graham/arb? [] If no, why not? [] DIAGNOSIS: COMMUNITY ACQUIRED PNEUMONIA DIET: REGULAR ACTIVITY: TOLERATED FOLLOW-UP WITH PCP: THIS WEEK MEDICATIONS: LEVAQUIN (ANTIBIOTIC) TAKE 1 DAILY X 4 DAYS - START TOMORROW, PREDNISONE (STEROID) TAKE 1 DAILY X 2 DAYS Discharge Medications: Medications at Discharge (Home Meds & RX) blood pressure monitor (Blood Pressure Kit) #1 ea 10/20/21 blood pressure monitor #1 ea 12/06/21 hydrocodone 7.5 mg-acetaminophen 325 mg tablet 1 tab PO BID PRN Analgesia 12/07/21 buspirone 15 mg tablet 15 mg PO TID #90 tabs 02/13/22 albuterol sulfate 90 mcg/actuation aerosol inhaler (ProAir HFA) 2 puff inhalation Q4-6H PRN shortness of breath or wheezing #8.5 grams 03/08/22 budesonide-formoterol HFA 160 mcg-4.5 mcg/actuation aerosol inhaler (Symbicort) See Rx Instructions .Route .COMPLEX #10.2 blisters 03/08/22 lisinopril 40 mg tablet 40 mg PO QDAY #30 tabs 03/08/22 tiotropium bromide 18 mcg capsule with inhalation device (Spiriva with HandiHaler) See Rx Instructions .Route .COMPLEX #30 blisters 04/06/22 pantoprazole 40 mg tablet,delayed release See Rx Instructions .Route .COMPLEX #30 tabs 05/04/22 alendronate 70 mg tablet 70 mg PO WEEKLY 10/17/22 calcium 600 mg capsule 600 mg PO DAILY 10/17/22 clonidine HCl 0.1 mg tablet 0.1 mg PO BID PRN hypertensive emergency 10/17/22 ergocalciferol (vitamin D2) 1,250 mcg (50,000 unit) capsule 50,000 unit PO WEEKLY 10/17/22 fluoxetine 40 mg capsule (Prozac) 20 mg PO QAM 10/17/22 meloxicam 15 mg tablet 15 mg PO DAILY 10/17/22 gabapentin 400 mg capsule 400 mg PO QID pain 12/10/22 amlodipine 2.5 mg tablet 2.5 mg PO DAILY PRN blood pressure [id number] systolic 04/30/23 cyclobenzaprine 5 mg tablet 2.5 mg PO TID 04/30/23 meclizine 25 mg chewable tablet 25 mg PO BID PRN dizziness 04/30/23 albuterol sulfate 2.5 mg/3 mL (0.083 %) solution for nebulization 2.5 mg (3 mL) inhalation Q4-6H PRN shortness of breath or wheezing #90 mL 09/12/23 amitriptyline 50 mg tablet 50 mg PO .nightly 10/28/23 Discharge Plan Discharge Discharge Orders: Discharge Patient (ONCE); Ordered 10/30/23 Ordered By: JOSE EDUARDO BHAGAT Activity Restrictions/Additional Instructions: DIAGNOSIS: COMMUNITY ACQUIRED PNEUMONIA DIET: REGULAR ACTIVITY: TOLERATED FOLLOW-UP WITH PCP: THIS WEEK MEDICATIONS: LEVAQUIN (ANTIBIOTIC) TAKE 1 DAILY X 4 DAYS - START TOMORROW, PREDNISONE (STEROID) TAKE 1 DAILY X 2 DAYS Instructions: Community Acquired Pneumonia (GEN) Patient Disposition: HOME SELF-CARE Prescriptions: New levofloxacin 750 mg tablet 750 mg PO DAILY 4 Days Qty: 4 0RF prednisone 10 mg tablet 10 mg PO DAILY Qty: 2 0RF Continued buspirone 15 mg tablet 15 mg PO TID Qty: 90 1RF budesonide-formoterol [Symbicort] 160-4.5 mcg/actuation HFA aerosol inhaler See Rx Instructions .ROUTE .COMPLEX Qty: 10.2 2RF Dose Instruction: USE 2 PUFFS TWICE DAILY Rx Instructions: USE 2 PUFFS TWICE DAILY albuterol sulfate [ProAir HFA] 90 mcg/actuation HFA aerosol inhaler 2 puff inhalation Q4-6H PRN (Reason: shortness of breath or wheezing) Qty: 8.5 2RF lisinopril 40 mg tablet 40 mg PO QDAY Qty: 30 2RF tiotropium bromide [Spiriva with HandiHaler] 18 mcg capsule, w/inhalation jamie ce See Rx Instructions .ROUTE .COMPLEX Qty: 30 3RF Dose Instruction: PUNCTURE ONE CAPSULE AND USE 2 INHALATIONS TO INHALE CONTENTS OF CAPSULE ONCE DAILY Rx Instructions: PUNCTURE ONE CAPSULE AND USE 2 INHALATIONS TO INHALE CONTENTS OF CAPSULE ONCE DAILY pantoprazole 40 mg tablet,delayed release (DR/EC) See Rx Instructions .ROUTE .COMPLEX Qty: 30 1RF Dose Instruction: TAKE ONE TABLET DAILY GENERIC FOR PROTONIX Rx Instructions: TAKE ONE TABLET DAILY GENERIC FOR PROTONIX ergocalciferol (vitamin D2) 1,250 mcg (50,000 unit) capsule 50,000 unit PO WEEKLY alendronate 70 mg tablet 70 mg PO WEEKLY meloxicam 15 mg tablet 15 mg PO DAILY calcium 600 mg capsule 600 mg PO DAILY clonidine HCl 0.1 mg tablet 0.1 mg PO BID PRN (Reason: hypertensive emergency) fluoxetine [Prozac] 40 mg capsule 20 mg PO QAM gabapentin 400 mg capsule 400 mg PO QID amlodipine 2.5 mg tablet 2.5 mg PO DAILY PRN (Reason: blood pressure systolic) cyclobenzaprine 5 mg tablet 2.5 mg PO TID meclizine 25 mg tablet,chewable 25 mg PO BID PRN (Reason: dizziness) amitriptyline 50 mg tablet 50 mg PO .nightly albuterol sulfate 2.5 mg /3 mL (0.083 %) solution for nebulization 2.5 mg inhalation Q4-6H PRN (Reason: shortness of breath or wheezing) Qty: 90 0RF (DME) blood pressure monitor Kit See Rx Instructions .ROUTE Qty: 1 0RF Rx Instructions: Monitor blood pressure twice a day (DME) blood pressure monitor [Blood Pressure Kit] Kit See Rx Instructions .ROUTE Qty: 1 0RF Rx Instructions: Monitor blood pressure twice a day and as needed hydrocodone-acetaminophen 7.5-325 mg tablet 1 tab PO BID PRN (Reason: Analgesia) Did you review [place] [employer] for ALL controlled substances?: No Discussed opioids are addictive and Narcan is available by prescription or from pharmacy.: No Condition: Fair
[2023-10-30 10:10] VITALS: BP 136/91; RESP 24; TEMP 97.3
== END 2023-10-30 14:00 | disposition home or self-care (01) | DRG 195 ==
LOC: MEDSURG B 17:24 → ED 17:24 → MEDSURG B 20:04
PROVIDERS: ADMIT Hospitalist; ATTEND Nurse Practitioner Family
DX: F32.A Depression, unspecified; I10 Essential (primary) hypertension; R00.0 Tachycardia, unspecified; Z99.81 Dependence on supplemental oxygen; M54.50 Low back pain, unspecified; J18.9 Pneumonia, unspecified organism; K21.9 Gastro-esophageal reflux disease without esophagitis; F17.210 Nicotine dependence, cigarettes, uncomplicated; J44.89 Other specified chronic obstructive pulmonary disease; G89.29 Other chronic pain